=== PATIENT | male | born 1940 | race Caucasian/White ===

== ENCOUNTER 2017-07-11 01:40 | Observation (INO) | payer OTHER, MEDICARE ==
[~2017-07-11] VITALS: Ht 180.3 cm; Wt 91.6 kg
[~2017-07-11 01:40] MED LIST: ASPIRIN EC81 M1 PO; CENTRUM SILVER1 EAC4 PO; CITALOPRAM HBR20 MG PO; CO Q-10150 MG PO; COLACE100 M1; FENOFIBRATE160 M1 PO; FLOMAX0.4 M1 PO; GAS RELIEF125 MG PO; LISINOPRIL20 M1 PO; LOPRESSOR50 M1 PO; MELATONIN3 M4 PO; PROTONIX20 M1 PO; SYNTHROID25 MCG PO; VITAMIN B-121000 MC3 PO; ZOCOR40 M1 PO
--- NOTE | 2017-07-11 09:53 | Operative Report ---
Operative/Inv Procedure Report Surgery Date: 07/11/17 Name of Procedure: TURP with SPT Pre-Operative Diagnosis: BPH with urinary retention Post-Operative Diagnosis: same Estimated Blood Loss: 50ml to 100ml Surgeon/Acid Blower: Rosalba Davalos MD Anesthesia: laryngeal mask airway Drains: 18fr SPT and 22fr [address] Specimens: prostate chips Complications: none Condition: stable Operative Indication: BPH with urinary retention issues,. failed dual meds Operative/Procedure Note Note: 77-year-old male with a history of BPH with issues of urinary retention and failed dual medical therapy. He has had episodes of urinary retention. He was given the risks benefits and alternatives of worsening retention issues as well as difficulty urinating. The surgical option of transurethral resection of prostate with suprapubic tube was reviewed with the patient and his several times. Also the risk of being unable to urinate even with a TURP was also discussed. All questions were answered. The risks benefits and alternatives of the surgery were given in the office as well as in the holding area with consent. Patient was identified in the holding area and brought to the operating placed on the operating table in supine position. I IV antibiotics were infused after timeout was performed. Patient was shaved and the genitalia and suprapubic region. He was prepped and draped in standard sterile fashion in the dorsal lithotomy position. A cystoscopy was performed and the bladder was globally inspected. He had grade 2 trabeculation with the trigone very close to the bladder neck. The ureteral orifices were easily identified on the right and left side. The prostate was very enlarged with lateral kissing lobes and no median lobe. The bladder was filled and the cystoscope left in the bladder. 1% lidocaine was emptied with epinephrine was infiltrated into the superior pubic region 2 fingerbreadths above the pubic bone. A #11 blade was used to make an incision. The needle was introduced at this level and urine was expressed. The guidewire was placed followed by the dilators. Once it was fully dilated the hopland tip 18 Jordanian Hernández catheter was placed without difficulty. 10 mL was of water was placed into the balloon port. The suprapubic tube was secured with two 0 silk sutures. Attention was then turned to the TURP portion of the case. A resectoscope with the loop was placed without difficulty. The resection was started at the 3 o' clock position and carried out sequentially to 6:00 and then 12:00. This was done to from the bladder neck to the verumontanum taking care not to injure the ureteral orifices or go beyond the verumontanum. This was done the patient's left side first followed by the right side and point coagulation was performed as bleeders were encountered. Prostate chips were irrigated intermittently with the EarlySenseik evacuator. Patient was stable throughout the course of the surgery. The rollerball was then used to fulgurate the prostate tissue. The prostatic channel was nice and open from the bladder neck to the verumontanum. No remaining prostatic chips were seen in the bladder. The ureteral orifices were easily identified on the right and left side. Resectoscope was removed and a 22 Jordanian three-way was placed without difficulty. 10 mL was placed into the balloon port and the CBI was started. Hernnádez catheter was attached to the bag to gravity. Patient tolerated procedure well. He was transferred to the recovery room stable condition. Findings: enalrged prostate with lateral kissing lobes and no median lobe with grade2 trabeculation nice open channel at the end of the case with bilateral ureteral orifices intact and verumontanum intact. Discharge Disposition: PACU
[2017-07-11 17:30] VITALS: BP 126/86
[2017-07-11 22:39] VITALS: BP 138/60
[2017-07-12 04:00] VITALS: BP 136/62
[2017-07-12 06:23] VITALS: BP 160/84
[2017-07-12 08:00] VITALS: BP 148/84
--- NOTE | 2017-07-12 08:32 | PN- Urology ---
Subjective Subjective: Comfortable Objective Vital Signs and I&Os Vital Signs Date Time Temp Pulse Resp B/P B/P Pulse O2 O2 Flow FiO2 Mean Ox Delivery Rate 07/12 08 97.7 58 20 160/84 07/12 0820 97.7 58 20 160/84 07/12 0820 97.7 58 20 160/84 07/12 0623 97.7 58 20 160/84 93 Room Air 07/12 0400 98.7 60 20 136/62 94 Room Air 07/11 2239 98.6 59 20 138/60 94 07/11 1730 98.3 58 18 126/86 95 Room Air Intake & Output 07/12 1600 07/12 0800 07/12 0000 07/11 1600 07/11 0800 07/11 0000 Intake Total 480 3230 Output Total 2550 3350 Balance -2070 -120 Intake, Oral 480 480 Intake, Other 2750 Number 0 Bowel Movements Output, Urine 2550 3350 Patient 202 lb Weight Abd: soft and non tender. Suprapubic tube in place. CBI running. Drainage is light pink Genitalia: 3-way evans in place. CBI running and drainage is light pink\ Extrems: No calf tenderness Laboratory Tests 07/12 0700 Chemistry Sodium Pending Potassium Pending Chloride Pending Carbon Dioxide Pending Anion Gap Pending BUN Pending Creatinine Pending BUN/Creatinine Ratio Pending Hematology CBC w Diff Pending WBC Pending RBC Pending Hgb Pending Hct Pending MCV Pending MCH Pending MCHC Pending RDW Pending Plt Count Pending MPV Pending Assessment/Plan Assessment/Plan Imp: 1. Stable POD #1 s/p insertion of suprapubic tube and TURP Plan: 1. D/C CBI, Restart prn hematuria 2. Leave suprapubic tube and evans to gravity drainage 3. If urine is reasonably clear in AM will likely d/c evans and send home with suprapubic tube to gravity drainage Core Measures Venous Thromboembolism VTE Risk Factors Surgery No Mechanical VTE Prophylaxis d/t Other (pt with venodynes) No VTE Pharm Prophylaxis d/t Other (patient is on sq heparin and v) Attending MD Review Statement Attending Statement Attending MD Statement: examined this patient Attending Assessment/Plan: as above
[2017-07-12 09:21] LABS: ABSOLUTE BASOPHIL COUNT 0 /CUMM (0.0-0.2); ABSOLUTE EOSINOPHIL COUNT 0.2 /CUMM (0.0-0.7); ABSOLUTE GRANULOCYTE CT 5.8 /CUMM (1.4-6.5); ABSOLUTE LYMPH COUNT 1.7 /CUMM (1.2-3.4); ABSOLUTE MONOCYTE COUNT 0.6 /CUMM (0.10-0.60); BASOPHIL % 0.3 % (0.0-2.0); EOSINOPHIL % 2.4 % (0-5); GRANULOCYTE % 70.2 % (42.2-75.2); HEMATOCRIT 37.4 % (42-52); MEAN CORPUSCULAR HGB 32.8 PG (27.0-31.0); MEAN CORPUSCULAR HGB CONC 34.5 G/DL (33.0-37.0); MEAN PLATELET VOLUME 7.9 FL (7.4-10.4); PLATELET COUNT 216 /CUMM (130-400); RBC DISTRIBUTION WIDTH 13.3 % (11.5-14.5); RED BLOOD CELL CT 3.94 /CUMM (4.70-6.10); WHITE BLOOD CELL COUNT 8.3 /CUMM (4.8-10.8)
[2017-07-12] MEDS ORDERED: PERCOCET 5-3251 EACH PO (09:47)
--- NOTE | 2017-07-12 09:55 | Patient Discharge Instructions ---
Discharge Instructions General Discharge Information You were seen/treated for: TURP with SPT Pre-Operative Diagnosis: BPH with urinary retention You had these procedures: see above Watch for these problems: inability to urinate, fever, severe pain, flu like illness, bloody drainage from catheter- call your doctor with any of these concerns. No bath, but you may shower: Yes Special Instructions: evans care as discussed by Dr Davalos Diet Continue normal diet: Yes Activity Full Activity/No Limits: No Activity Self Limited: Yes Pounds, do NOT lift more than: 10 Acute Coronary Syndrome Inclusion Criteria At DC or during hospital stay patient has or had the following: ACS DIAGNOSIS No Discharge Core Measures Meds if any: Prescribed or Continued at Discharge Meds if any: NOT Prescribed or Continued at Discharge Congestive Heart Failure Inclusion Criteria At DC or during hospital stay patient has or had the following: CHF DIAGNOSIS No Discharge Core Measures Meds if any: Prescribed or Continued at Discharge Meds if any: NOT Prescribed or Continued at Discharge Cerebrovascular accident Inclusion Criteria At DC or during hospital stay patient has or had the following: CVA/TIA Diagnosis No Discharge Core Measures Meds if any: Prescribed or Continued at Discharge Meds if any: NOT Prescribed or Continued at Discharge Venous thromboembolism Inclusion Criteria VTE Diagnosis No VTE Type NONE VTE Confirmed by (Test) NONE Discharge Core Measures - Per Current guidelines, there needs to be overlap - treatment for the first 5 days of Warfarin therapy. - If discharged on Warfarin prior to 5 days of - overlap therapy, the patient will need to be - assessed for post discharge needs including - *Post discharge parental anticoagulation - *Warfarin and/or parental anticoagulation education - *Follow up date to check INR post discharge At least 5 days overlap therapy as Inpatient No Meds if any: Prescribed or Continued at Discharge Note: Overlap Therapy is Warfarin and Anticoagulant Meds if any: NOT Prescribed or Continued at Discharge
[2017-07-12 10:00] VITALS: BP 150/82
[2017-07-12 12:00] VITALS: BP 154/88
== END 2017-07-12 13:20 ==
LOC: STS 01:40 → PACUH 15:44 → ENRESERV 16:12 → ENTRNSPT 16:58 → EDTRNSPT 17:08 → EDTRNSPTSTS 17:08 → 2NA 17:28 → CMPTRNSPT 17:33 → ENPENDDIS 07-12 10:04 → ENTRNSPT 07-12 12:56 → 2NA 07-12 13:20 → CMPTRNSPT 07-12 13:26
PROVIDERS: Physician Assistant
DX: N40.1 Benign prostatic hyperplasia with lower urinary tract symptoms (principal); R33.8 Other retention of urine; I10 Essential (primary) hypertension; J44.9 Chronic obstructive pulmonary disease, unspecified; E03.9 Hypothyroidism, unspecified; Z79.82 Long term (current) use of aspirin; K21.9 Gastro-esophageal reflux disease without esophagitis; G47.33 Obstructive sleep apnea (adult) (pediatric); K58.9 Irritable bowel syndrome, unspecified; F32.9 Major depressive disorder, single episode, unspecified; E78.5 Hyperlipidemia, unspecified; F98.8 Other specified behavioral and emotional disorders with onset usually occurring in childhood and adolescence; K57.90 Diverticulosis of intestine, part unspecified, without perforation or abscess without bleeding
CPT/HCPCS: 6030; 36592; 82436; 96372; G0378; J0744; J1100; J1644; J2250; J2405

== ENCOUNTER 2017-08-02 21:43 | Inpatient (IN) | payer OTHER, MEDICARE ==
[~2017-08-02] VITALS: Ht 180.3 cm; Wt 91.7 kg
[~2017-08-02 21:43] MED LIST changes: +PERCOCET 5-3251 EACH PO
--- NOTE | 2017-08-02 23:32 | CT SCAN REPORT ---
EXAMINATION: CT HEAD WITHOUT CONTRAST CLINICAL INFORMATION: Intracranial hemorrhage COMPARISON: None TECHNIQUE: Contiguous axial imaging was performed from the skull base to vertex without intravenous administration of contrast. DLP: 621 mGy-cm FINDINGS: There is no evidence of acute intracranial hemorrhage or territorial infarction. No abnormal mass effect or midline shift is seen. Block to white matter differentiation is well preserved. No extra-axial fluid collections are identified. The ventricles are normal in size. Mild age-appropriate chronic microvascular white matter ischemic changes are seen. The osseous structures and soft tissues are normal. The mastoid air cells and visualized portions of the paranasal sinuses are well aerated. IMPRESSION: No acute intracranial pathology.
--- NOTE | 2017-08-02 23:33 | ED GENERAL ADULT ---
History of Present Illness General Chief Complaint: Male Genitourinary Problems Stated Complaint: SIB DR CARY FOR ?UTI/BLADDER INFECTION Source: patient, family Exam Limitations: no limitations Vital Signs & Intake/Output Vital Signs & Intake/Output Vital Signs Date Time Temp Pulse Resp B/P B/P Pulse O2 O2 Flow FiO2 Mean Ox Delivery Rate 08/03 0147 96.6 56 18 129/60 97 Room Air 08/02 2149 96.6 63 18 133/82 95 Room Air Allergies Coded Allergies: Penicillins (UNKNOWN 07/10/17) venom-honey bee (UNKNOWN 07/10/17) Reconcile Medications Aspirin (Ecotrin*) 81 MG TABLET.DR 1 TAB PO DAILY HEART/BLOOD (Reported) Citalopram Hydrobromide (Citalopram HBr) 20 MG TABLET 1 TAB PO DAILY MENTAL HEALTH (Reported) Cyanocobalamin (Vitamin B-12) (Unknown Strength) TABLET (Unknown Dose) PO DAILY SUPPLEMENT (Reported) Docusate Sodium (Colace) 100 MG CAPSULE CONSTIPATION (Reported) Fenofibrate 160 MG TABLET 0.5 TAB PO DAILY CHOLESTEROL (Reported) Levothyroxine Sodium (Synthroid) 25 MCG TABLET 1 TAB PO DAILY AC THYROID ( Reported) Lisinopril 20 MG TABLET 1 TAB PO DAILY BP (Reported) Melatonin 3 MG TABLET 1 TAB PO QPM SLEEP (Reported) Metoprolol Tartrate (Lopressor) 50 MG TABLET 1 TAB PO DAILY HEART/BP ( Reported) Multivit-Min/FA/Lycopen/Lutein (Centrum Silver Men Tablet) 300 MCG-600 MCG-300 MCG TABLET 1 TAB PO DAILY SUPPLEMENT (Reported) Oxycodone HCl/Acetaminophen (Percocet 5-325 MG Tablet) 5 MG-325 MG TABLET 1-2 TAB PO Q4P PRN PAIN Pantoprazole Sodium (Protonix) 20 MG TABLET. 1 TAB PO DAILY ACID REFLUX ( Reported) Simethicone (Gas Relief) 125 MG CAPSULE 1 CAP PO EOD GAS (Reported) Simvastatin (Zocor*) 40 MG TABLET 1 TAB PO DAILY CHOLESTEROL (Reported) Tamsulosin HCl (Flomax) 0.4 MG CAP.ER.24H 1 CAP PO DAILY PROSTATE (Reported) Ubidecarenone (Co Q-10) (Unknown Strength) CAPSULE (Unknown Dose) PO DAILY SUPPLEMENT (Reported) Triage Note: PT TO TRIAGE SENT BY FOR ?INFECTION S/P TURP IN JUNE. PER PT WAS DX WITH UTI YESTERDAY AND STARTED ON CIPRO BUT IS C/O CONFUSION PER AND BURNING ON URINATION. Triage Nurses Notes Reviewed? yes HPI: 77 yo M PMH HTN, HLD, Hypothyroidism, BPH (s/p TURP) presenting with confusion, urinary Sx. Patients states that since his TURP 2 weeks ago he has been intermittently confused, waxing and waning severity, much worse this evening, came upstairs to find the patient frantically looking for his suprapubic catheter tube on the floor and in the garbage (only to find it still attached to his stomach), tonight at dinner he was speaking to a potted plant seated on the dinner table ("and where is your plate?"). Waxing an waning urinary Sx since surgery with dysuria, increase urinary frequency, recently evaluated by Urologist 2 days ago, found to have UTI, started on ciprofloxacin without relief. Denies fevers, chills, chest pain, SOB, palpitations, abominal pain, flank pain, headache, neck pain or focal neurologic Sx. ([place] VALERIO,Lon) Past History Travel History Traveled to [place] past 21 day No Medical History Any Pertinent Medical History? 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 Yes (Lon Magana MD) Review of Systems Review of Systems Constitutional: Reports: see HPI. EENTM: Reports: no symptoms. Respiratory: Reports: no symptoms. Cardiovascular: Reports: no symptoms. GI: Reports: no symptoms. Genitourinary: Reports: see HPI. Musculoskeletal: Reports: no symptoms. Skin: Reports: no symptoms. Neurological/Psychological: Reports: see HPI. Hematologic/Endocrine: Reports: no symptoms. Immunologic/Allergic: Reports: no symptoms. All Other Systems: Reviewed and Negative (Lon Magana MD) Physical Exam Physical Exam General Appearance: well developed/nourished, no apparent distress, alert Head: atraumatic Eyes: Bilateral: PERRL, EOMI. Neck: normal inspection, full range of motion Respiratory: normal breath sounds, lungs clear Cardiovascular: regular rate/rhythm, normal peripheral pulses Gastrointestinal: soft, non-tender Extremities: normal inspection Neurologic/Psych: awake, alert Comments: General: Oriented to person and place, intermittent confused response to questioning Abdomen: Suprapubic catheter in place with mild erythema consistent with healing Core Measures ACS in differential dx? Yes CVA/TIA Diagnosis: No Sepsis Present: No Sepsis Focused Exam Completed? No (Lon Magana MD) Progress Differential Diagnoses I considered the following diagnoses in my evaluation of the patient: [ Infection, metabolic derrangement, ICH] Plan of Care: Orders Procedure Date/time Status Regular Diet 08/03 B Active Vital Signs 08/03 333 Active Teach/Educate 08/03 333 Active Pain Treatment and Response 08/03 033 Active Nutritional Intake, Monitor 08/03 0334 Active Isolation 08/03 0334 Active Intake & Output 08/03 0334 Active Patient Care Conference 08/03 0334 Active Activity/Ambulation 08/03 0334 Active Pathway - chart 08/03 0321 Active House Staff 08/03 0321 Active Patient Data 08/03 0321 Active Code Status 08/03 0321 Active Patient Data 08/03 0212 Active Intake & Output 08/[address] in observation 08/03 0107 Active Misc Message 08/03 0107 Active ED Holding Orders 08/03 0107 Active Code Status 08/03 0107 Complete VTE Mechanical Prophylaxis 08/03 UNK Active CBC WITHOUT DIFFERENTIAL 08/02 2253 Complete BASIC METABOLIC PANEL 08/02 225 Complete EKG 08/02 225 Active CULTURE,URINE 08/02 2145 Active URINALYSIS 08/02 2145 Complete Current Medications Sig/Shaista Start time Last Medication Dose Stop Time Status Admin Heparin Sodium 5,000 UNIT Q8 08/03 0600 AC (Porcine) Acetaminophen 325 MG Q6 PRN 08/03 0330 AC (Tylenol) Laboratory Tests 08/02/17 2315: Anion Gap 12, Estimated GFR 49 L, BUN/Creatinine Ratio 32.1 H, Glucose 99, Calcium 9.5, CBC w Diff NO MAN DIFF REQ, RBC 3.50 L, MCV 93.2, MCH 31.3 H, MCHC 33.5, RDW 13.1, MPV 6.6 L, Gran % 64.6, Lymphocytes % 21.6, Monocytes % 9.0, Eosinophils % 4.3, Basophils % 0.5, Absolute Granulocytes 4.9, Absolute Lymphocytes 1.6, Absolute Monocytes 0.7 H, Absolute Eosinophils 0.3, Absolute Basophils 0 08/02/172153: Urine Color GREEN H, Urine Clarity HAZY H, Urine pH 6.5, Ur Specific [place] > = 1.030, Urine Protein 100 H, Urine Ketones NEG, Urine Nitrite NEG, Urine Bilirubin NEG@ICTO, Urine Urobilinogen 0.2, Ur Leukocyte Esterase MOD H, Ur Microscopic SEDIMENT EXAMINED, Urine RBC 25-50 H, Urine WBC > 75 H, Ur Epithelial Cells RARE, Urine Bacteria MANY H, Urine Hemoglobin MOD H, Urine Glucose NEG Microbiology 08/02 2153 URINE ROUT: Urine Culture - RECD Physician MDM: 77 yo M PMH HTN, HLD, Hypothyroidism, BPH (s/p TURP) presenting with confusion, urinary Sx. VSS, remainder of exam as above. DDx: Metabolic derrangement, Infection, ICH. Labs remarkable for MADDISON (Cr 1.1 > 1.4). 1L NS given. UA suggestive of ongoing infection, will treat with bactrim (anaphylactic penicillin allergy). Admit for ongoing IVF, abx, possible urology consult. Initial ED EKG: none ([place] VALERIO,Lon) Departure Departure Disposition: STILL A PATIENT Condition: Stable Clinical Impression Primary Impression: MADDISON (acute kidney injury) Secondary Impressions: Confusion, UTI (urinary tract infection) Referrals: Genie Lujan MD (PCP/Family) Departure Forms: Customer Survey General Discharge Information Admission Note Spoke With: Howie Moulton MD Documentation of Exam: Documentation of any treatments & extenuating circumstances including Concerns Regarding Discharge (functional status, medication knowledge or non-compliance, living conditions, etc.) that warrant an admission rather than observation: [ Presents with confusion and a Setting of Ongoing Urinary Tract Infection That Is Being Treated with Outpatient Antibiotics, the Patient Requires Admission for Monitoring, IV Fluids, Antibiotics, and Neurology Consult, If Discharged Patient Has a High Likelihood of Progressive Confusion, Progressive Renal Impairment, and Metabolic derrangements leading to cardiovascular collapse or ] ([place] VALERIO,Lon) PA/INSULATION POWER UNIT TENDER Co-Sign Statement Statement: ED Attending supervision documentation- [] I saw and evaluated the patient. I have also reviewed all the pertinent lab results and diagnostic results. I agree with the findings and the plan of care as documented in the PA's/INSULATION POWER UNIT TENDER's documentation. [x] I have reviewed the ED Record and agree with the PA's/INSULATION POWER UNIT TENDER's documentation. [] Additions or exceptions (if any) to the PAs/INSULATION POWER UNIT TENDER's note and plan are summarized below: [] (Tere VALERIO,Bernardo Cohen) Critical Care Note Critical Care Note Critical Care Time: non-applicable ([place] VALERIO,Lon)
--- NOTE | 2017-08-02 23:38 | RADIOLOGY REPORT ---
EXAMINATION: XR CHEST CLINICAL INFORMATION: Cough. Confusion. COMPARISON: None TECHNIQUE: 2 views of the chest were obtained. FINDINGS: The lungs are well expanded. Minimal linear left basilar atelectasis. There is no focal consolidation, edema, or effusion. No pneumothorax. The cardiomediastinal silhouette is within normal limits. No acute osseous abnormality. Radiopaque anchor in the left humeral head. IMPRESSION: No acute pulmonary finding.
[2017-08-02 23:39] LABS: ABSOLUTE BASOPHIL COUNT 0 /CUMM (0.0-0.2); ABSOLUTE EOSINOPHIL COUNT 0.3 /CUMM (0.0-0.7); ABSOLUTE GRANULOCYTE CT 4.9 /CUMM (1.4-6.5); ABSOLUTE LYMPH COUNT 1.6 /CUMM (1.2-3.4); ABSOLUTE MONOCYTE COUNT 0.7 /CUMM (0.10-0.60); BASOPHIL % 0.5 % (0.0-2.0); EOSINOPHIL % 4.3 % (0-5); GRANULOCYTE % 64.6 % (42.2-75.2); HEMATOCRIT 32.6 % (42-52); MEAN CORPUSCULAR HGB 31.3 PG (27.0-31.0); MEAN CORPUSCULAR HGB CONC 33.5 G/DL (33.0-37.0); MEAN CORPUSCULAR VOLUME 93.2 FL (80.0-94.0); MEAN PLATELET VOLUME 6.6 FL (7.4-10.4); PLATELET COUNT 360 /CUMM (130-400); RBC DISTRIBUTION WIDTH 13.1 % (11.5-14.5); WHITE BLOOD CELL COUNT 7.6 /CUMM (4.8-10.8)
--- NOTE | 2017-08-03 04:17 | History & Physical ---
JerryAnkitaalessandra 08/03/17 0401: General Information and HPI MD Statement: I have seen and personally examined ZEFERINO VAIL and documented this H&P. The patient is a 77 year old M who presented with a patient stated chief complaint of confusion []. Source of Information: patient, old records Exam Limitations: no limitations History of Present Illness: Patient is a 77-year-old male with past medical history of BPH(S/P TURP on 2017), hypertension, hyperlipidemia was sent in to the ED by Dr. Sifuentes for confusion and UTI. Patient had a TURP procedure done on 07/10/2017 and is now s/pt a suprapubic catheter. Post the procedure he has been having waxing and waning confusion which had gotten much worse this evening. As per the ED reports, his reported that the patient has been delirious and delusional and has been quite confused at home. He was family report is Hernández on the floor and talking to himself/op checks during dinner. He has also been complaining of dysuria and increased frequency of urination for which she was seen by Dr. Sifuentes and started on ciprofloxacin. There hasn't been much improvement in his symptoms. Patient denies any chest pain, palpitations, nausea, vomiting, abdominal pain, urinary or bowel symptoms. He does endorse back pain which is chronic and pain in his penis. He denies any fevers, chills or urinary symptoms. Vitals in the ED temperature 96.6, pulse 63, respiration 18, blood pressure 133/ 82, saturating 95% on room air. Labs significant for H&H 10/32.6(baseline 12), creatinine 1.4(baseline 1.1) UA was dirty with positive leukocyte esterase, positive nitrate and >[address] and chest x-ray nonrevealing Allergies/Medications Allergies: Coded Allergies: Penicillins (UNKNOWN 07/10/17) venom-honey bee (UNKNOWN 07/10/17) Home Med list Aspirin (Ecotrin*) 81 MG TABLET. 1 TAB PO DAILY HEART/BLOOD (Reported) Citalopram Hydrobromide (Citalopram HBr) 20 MG TABLET 1 TAB PO DAILY MENTAL HEALTH (Reported) Cyanocobalamin (Vitamin B-12) (Unknown Strength) TABLET (Unknown Dose) PO DAILY SUPPLEMENT (Reported) Docusate Sodium (Colace) 100 MG CAPSULE CONSTIPATION (Reported) Fenofibrate 160 MG TABLET 0.5 TAB PO DAILY CHOLESTEROL (Reported) Levothyroxine Sodium (Synthroid) 25 MCG TABLET 1 TAB PO DAILY AC THYROID ( Reported) Lisinopril 20 MG TABLET 1 TAB PO DAILY BP (Reported) Melatonin 3 MG TABLET 1 TAB PO QPM SLEEP (Reported) Metoprolol Tartrate (Lopressor) 50 MG TABLET 1 TAB PO DAILY HEART/BP ( Reported) Multivit-Min/FA/Lycopen/Lutein (Centrum Silver Men Tablet) 300 MCG-600 MCG-300 MCG TABLET 1 TAB PO DAILY SUPPLEMENT (Reported) Oxycodone HCl/Acetaminophen (Percocet 5-325 MG Tablet) 5 MG-325 MG TABLET 1-2 TAB PO Q4P PRN PAIN Pantoprazole Sodium (Protonix) 20 MG TABLET.DR 1 TAB PO DAILY ACID REFLUX ( Reported) Simethicone (Gas Relief) 125 MG CAPSULE 1 CAP PO EOD GAS (Reported) Simvastatin (Zocor*) 40 MG TABLET 1 TAB PO DAILY CHOLESTEROL (Reported) Tamsulosin HCl (Flomax) 0.4 MG CAP.ER.24H 1 CAP PO DAILY PROSTATE (Reported) Ubidecarenone (Co Q-10) (Unknown Strength) CAPSULE (Unknown Dose) PO DAILY SUPPLEMENT (Reported) Past History Travel History Traveled to [place] past 21 day No Medical History Blood Transfusion Hx: No Neurological: NONE EENT: NONE Cardiovascular: hypertension Respiratory: COPD Gastrointestinal: constipation Hepatic: NONE Renal: NONE Musculoskeletal: BATSHEVA ROTATOR CUFF REPAIR Psychiatric: anxiety, depression Endocrine: hypothyroidism Blood Disorders: NONE Cancer(s): NONE 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 EENTM: Reports: no symptoms. Cardiovascular: Reports: no symptoms. Respiratory: Reports: no symptoms. GI: Reports: no symptoms. Musculoskeletal: Reports: back pain. Exam & Diagnostic Data Last 24 Hrs of Vital Signs/I&O Vital Signs Date Time Temp Pulse Resp B/P B/P Pulse O2 O2 Flow FiO2 Mean Ox Delivery Rate 08/03 0147 96.6 56 18 129/60 97 Room Air 08/02 2149 96.6 63 18 133/82 95 Room Air Intake & Output 08/03 0800 08/03 0000 08/02 1600 Intake Total Output Total Balance Patient 91.682 kg Weight Physical Exam General Appearance Alert, Oriented X3, Cooperative, No Acute Distress Skin No Rashes, redness seen around the scrotum Skin Temp/Moisture Exam: Warm/Dry Sepsis Skin Exam (color): Normal for Ethnicity HEENT Atraumatic, PERRLA, EOMI, mucous membranes dry. Neck Supple, No JVD Lymphatic Cervical nl Cardiovascular Regular Rate, Normal S1, Normal S2, No Murmurs Lungs Clear to Auscultation, Normal Air Movement Abdomen Normal Bowel Sounds, Soft, No Tenderness Extremities No Clubbing, No Cyanosis Last 24 Hrs of Labs/Luis Alberto: Laboratory Tests 08/02/17 2315: Anion Gap 12, Estimated GFR 49 L, BUN/Creatinine Ratio 32.1 H, Glucose 99, Calcium 9.5, CBC w Diff NO MAN DIFF REQ, RBC 3.50 L, MCV 93.2, MCH 31.3 H, MCHC 33.5, RDW 13.1, MPV 6.6 L, Gran % 64.6, Lymphocytes % 21.6, Monocytes % 9.0, Eosinophils % 4.3, Basophils % 0.5, Absolute Granulocytes 4.9, Absolute Lymphocytes 1.6, Absolute Monocytes 0.7 H, Absolute Eosinophils 0.3, Absolute Basophils 0 08/02/172153: Urine Color GREEN H, Urine Clarity HAZY H, Urine pH 6.5, Ur Specific [place] > = 1.030, Urine Protein 100 H, Urine Ketones NEG, Urine Nitrite NEG, Urine Bilirubin NEG@ICTO, Urine Urobilinogen 0.2, Ur Leukocyte Esterase MOD H, Ur Microscopic SEDIMENT EXAMINED, Urine RBC 25-50 H, Urine WBC > 75 H, Ur Epithelial Cells RARE, Urine Bacteria MANY H, Urine Hemoglobin MOD H, Urine Glucose NEG Microbiology 08/02 2153 URINE ROUT: Urine Culture - RECD Assessment/Plan Assessment: Patient is a 77-year-old male with past medical history of BPH(S/P TURP on 2017), hypertension, hyperlipidemia was sent in to the ED by Dr. Sifuentes for confusion and UTI.Patient had a TURP procedure done on 07/10/2017 and is now s/pt a suprapubic catheter. Post the procedure he has been having waxing and waning confusion which had gotten much worse this evening. Vitals in the ED temperature 96.6, pulse 63, respiration 18, blood pressure 133/ 82, saturating 95% on room air. Labs significant for H&H 10/32.6(baseline 12), creatinine 1.4(baseline 1.1) UA was dirty with positive leukocyte esterase, positive nitrate and >[address] and chest x-ray nonrevealing Assessment Confusion, delirium likely secondary to UTI s/p TURP Suprapubic catheter associated UTI Recent TURP MADDISON likely secondary to dehydration Hypertension Hyperlipidemia Plan Admit to [facility] Vitals per protocol Gentle hydration with IV normal saline at 75 cc an hour Blood and urine cultures. Patient has grown Achinetobacter in the past which was sensitive to ciprofloxacin. Received IV ceftriaxone in the ED. We'll start ciprofloxacin and continue pending cultures ID consult appreciated Urology consult in a.m. CT abdomen and pelvis Continue all other home medications DVT prophylaxis subcutaneous heparin DNR Please confirm all home medications in a.m. As Ranked By This Provider Problem List: 1. MADDISON (acute kidney injury) 2. UTI (urinary tract infection) 3. Confusion 4. S/P transurethral resection of prostate Core Measures/Misc (12/15) Acute Coronary Syndrome ACS Diagnosis: No Congestive Heart Failure Congestive Heart Failure Diagnosis No Cerebrovascular Accident CVA/TIA Diagnosis: No VTE (View Protocol) VTE Risk Factors Age>40 No Mechanical VTE Prophylaxis d/t N/A MechProphylax Ordered No VTE Pharm Prophylaxis d/t NA PharmProphylax ordered Sepsis (View protocol) Sepsis Present: No Howie Moulton 08/03/17 0547: Attending MD Review Statement Attending Statement Attending MD Statement: examined this patient, discuss w/resident/PA/CASE FINISHING MACHINE ADJUSTER, agreed w/resident/PA/CASE FINISHING MACHINE ADJUSTER, reviewed EMR data (avail), reviewed images, amended to note Attending Assessment/Plan: CC: Confusion PMH: HTN, HLD, hypothyroidism, COPD, depression Patient is poor historian. His is not available bedside who has more detailed information according to him. Patient states that his thinks that he is more confused, more forgetful. Patient has been getting forgetful recently but last few days he was more confused according to his . Patient also complains of burning sensation in his urine mostly at the tip of urethra and suprapubic pain. He denied any fever, chills, nausea, vomiting, diarrhea, chest pain, abdominal pain. He underwent TURP in June 2017 and had suprapubic catheter placement and he states that it's very uncomfortable for him. Vitals: Temperature 96.6, pulse is 63, RR 18, blood pressure 133/82, saturating 97% on room air. On exam: A O 3, cooperative, no acute distress, neck supple, JVD normal, no lymphadenopathy, mucosa dry, no focal neurological deficit, no dependent edema, no obvious skin rashes or inflammation CVS: S1-S2, RRR. RS: Clear to auscultate bilaterally. Abdomen: Soft, mild suprapubic tenderness, no urethral discharge, ND, bowel sounds present. CXR: No acute pulmonary finding. CT head: No acute intracranial pathology. Assessment and plan 77-year-old male was brought in ER by his for increased confusion and burning sensation in urethra. Patient underwent TURP on 07/11/2017. Suprapubic catheter was placed at that time. According to his claims history patient was started on ciprofloxacin outpatient on july. Patient's symptoms seems to be getting worse even on antibiotics so he was brought in ER. Urine culture done on July 29 shows 40,000 colonies of Acinetobacter. It's unclear if this is colonization or UTI but at this point we will continue to treat this as UTI given his confusion and burning urination. We will get ID involved as higher antibiotics may be required. We will inform urology about patient being in hospital. He also appears to have acute kidney injury with creatinine of 1.4, will continue IV hydration and reassess, if no improvement consider CT abdomen and pelvis without contrast. Patient has significant penicillin allergy with what appears to be anaphylaxis. + Catheter associated UTI + Confusion + Acute kidney injury + Recent TURP with suprapubic catheter placement + History of HTN, HLD, hypothyroidism, COPD, depression - Admit to general medicine - Continue gentle hydration - Hold lisinopril - Repeat urine cultures - Continue by mouth ciprofloxacin 500 twice a day - ID consult - Urology consult - Continue other home medications - Need to obtain more detailed history from in the morning
[2017-08-03 04:20] VITALS: BP 142/88
--- NOTE | 2017-08-03 05:50 | Admission Certification ---
Admission Certification Certification Statement - As attending physician, I certify that at the time of - admission, based on clinical presentation, severity of - symptoms, need for further diagnostic testing and - therapeutic interventions, and risk of adverse outcomes - without in-hospital treatment, in my clinical assessment, - this patient requires an acute hospital stay for a minimum - of two nights or longer. I have also considered psychsocial - factors such as support system, advanced age, financial - issues, cognitive issues, and failed out-patient treatments, - past re-admission history, safety of patient, and lack of - compliance as applicable. Specific rationale supporting this admission is: UTI, acute kidney injury, confusion
[2017-08-03 06:47] VITALS: BP 144/88
[2017-08-03 08:58] LABS: ABSOLUTE BASOPHIL COUNT 0 /CUMM (0.0-0.2); ABSOLUTE EOSINOPHIL COUNT 0.4 /CUMM (0.0-0.7); ABSOLUTE GRANULOCYTE CT 4.5 /CUMM (1.4-6.5); ABSOLUTE LYMPH COUNT 1.3 /CUMM (1.2-3.4); ABSOLUTE MONOCYTE COUNT 0.6 /CUMM (0.10-0.60); BASOPHIL % 0.6 % (0.0-2.0); EOSINOPHIL % 5.9 % (0-5); GRANULOCYTE % 66.5 % (42.2-75.2); HEMATOCRIT 31.5 % (42-52); MEAN CORPUSCULAR HGB 31.4 PG (27.0-31.0); MEAN CORPUSCULAR HGB CONC 33.6 G/DL (33.0-37.0); MEAN CORPUSCULAR VOLUME 93.3 FL (80.0-94.0); MEAN PLATELET VOLUME 7.2 FL (7.4-10.4); PLATELET COUNT 306 /CUMM (130-400); RBC DISTRIBUTION WIDTH 13.1 % (11.5-14.5); RED BLOOD CELL CT 3.38 /CUMM (4.70-6.10); WHITE BLOOD CELL COUNT 6.8 /CUMM (4.8-10.8)
--- NOTE | 2017-08-03 12:03 | CT SCAN REPORT ---
EXAMINATION: CT ABDOMEN AND PELVIS WITHOUT CONTRAST CLINICAL INFORMATION: UTI. Confusion. Rule out acute pathology. COMPARISON: None. TECHNIQUE: Multidetector volumetric imaging was performed from the superior aspect of the liver through the pubic symphysis. Sagittal and coronal reformatted images were obtained on the technologist workstation. DLP: 563.44 mGy-cm. FINDINGS: LUNG BASES: Minimal dependent atelectasis in the lung bases bilaterally. Mitral annular calcifications are seen. LIVER, GALLBLADDER, AND BILIARY TREE: The liver is normal in size, shape, and attenuation. No focal hepatic lesion on noncontrast imaging. No biliary ductal dilatation is present. The gallbladder is unremarkable with no evidence of radiopaque gallstones, gallbladder wall thickening, or obvious pericholecystic inflammatory changes. PANCREAS: Mild fatty infiltration of the pancreatic head is seen. Pancreas otherwise unremarkable on noncontrast imaging. SPLEEN, ADRENAL GLANDS: Unremarkable on noncontrast imaging. KIDNEYS AND URETERS: The kidneys are normal in size, shape, and attenuation. No hydronephrosis, hydroureter, or calculi seen. No perinephric stranding. In the lower pole of the left kidney, there is an exophytic 2.0 x 2.1 cm mass with mean attenuation values of 30 Hounsfield units. This is incompletely assessed on this noncontrast enhanced exam and may represent a hyperdense cyst versus a solid renal mass. Further evaluation will be needed. Kidneys are otherwise unremarkable. BLADDER: The bladder is decompressed by a suprapubic catheter. Small locule of air within the bladder lumen is seen. Evaluation of the bladder is therefore limited. There there is mild stranding and edema in the perivesical fat, consistent with cystitis in this patient with history of UTI. No bladder calculi seen. PELVIC VISCERA: Prostate gland is enlarged and heterogeneous, measuring 7.0 x 5.6 x 6.2 cm (127 mL volume). Seminal vesicles bilaterally are symmetric and unremarkable. GASTROINTESTINAL TRACT: Small retrocardiac hiatal hernia is seen. The small and large bowel are unremarkable. The appendix is not visualized. ABDOMINAL WALL: No significant hernia is appreciated. Suprapubic bladder catheter is in place. LYMPH NODES, VASCULAR: Moderate atherosclerotic calcifications of the aortoiliac arteries noted. No significant abdominal or pelvic adenopathy or free fluid collection. OSSEOUS STRUCTURES: There is a convex left lumbar scoliosis with multilevel severe degenerative changes in the lumbar spine, most prominent at the L1-L2, L2-L3, L3-L4 levels with marked disc space narrowing, vertebral endplate sclerosis and spurring, cystic changes and vacuum disc phenomenon. Posterior disc osteophyte complexes are seen at multiple levels. IMPRESSION: 1. Bladder suboptimally assessed due to decompression. There is pericystic edema and stranding seen, consistent with cystitis in the setting of UTI. 2. No evidence of nephrolithiasis or obstructive uropathy. 3. Incompletely characterized exophytic approximately 2 cm mass is seen in the lower pole of the left kidney, possibly a hyperdense cyst versus a solid mass. Further evaluation with renal MRI scan is recommended. 4. Moderate atherosclerotic arterial calcifications in the abdomen. 5. Markedly enlarged and heterogeneous prostate gland. 6. Small hiatal hernia.
--- NOTE | 2017-08-03 13:31 | PN- Att Addend ---
Attending Addendum Attending Brief Note Patient seen/examined bedside. states patient has REM sleep disorder and presents to ER wit increasing confusion and vivid dreams. Seen by neurology Dr Torres in past , also noticed to have abnormal twitches and hand movements. He has also been complaining of dysuria and increased frequency of urination for which she was seen by Dr. Sifuentes and started on ciprofloxacin. There hasn't been much improvement in his symptoms. labs and imaging noted. Vitals stable. PE unremarakble except SPC + no signs of infection at site. Cont plan of care as per admitting physician, please ask neurology to follow up. Admission Lab Results I reviewed the following labs: Laboratory Tests 08/03 08/02 0730 2315 Chemistry Sodium (137 - 145 mmol/L) 143 143 Potassium (3.5 - 5.1 mmol/L) 4.4 4.5 Chloride (98 - 107 mmol/L) 109 H 107 Carbon Dioxide (22 - 30 mmol/L) 23 24 Anion Gap (5 - 16) 11 12 BUN (9 - 20 mg/dL) 41 H 45 H Creatinine (0.7 - 1.2 mg/dL) 1.3 H 1.4 H Estimated GFR (>60 ml/min) 54 L 49 L BUN/Creatinine Ratio (7 - 25 %) 31.5 H 32.1 H Glucose (65 - 99 mg/dL) 99 Calcium (8.4 - 10.2 mg/dL) 9.5 Hematology CBC w Diff NO MAN DIFF REQ NO MAN DIFF REQ WBC (4.8 - 10.8 /CUMM) 6.8 7.6 RBC (4.70 - 6.10 /CUMM) 3.38 L 3.50 L Hgb (14.0 - 18.0 G/DL) 10.6 L 10.9 L Hct (42 - 52 %) 31.5 L 32.6 L MCV (80.0 - 94.0 FL) 93.3 93.2 MCH (27.0 - 31.0 PG) 31.4 H 31.3 H MCHC (33.0 - 37.0 G/DL) 33.6 33.5 RDW (11.5 - 14.5 %) 13.1 13.1 Plt Count (130 - 400 /CUMM) 306 360 MPV (7.4 - 10.4 FL) 7.2 L 6.6 L Gran % (42.2 - 75.2 %) 66.5 64.6 Lymphocytes % (20.5 - 51.1 %) 18.6 L 21.6 Monocytes % (1.7 - 9.3 %) 8.4 9.0 Eosinophils % (0 - 5 %) 5.9 H 4.3 Basophils % (0.0 - 2.0 %) 0.6 0.5 Absolute Granulocytes (1.4 - 6.5 /CUMM) 4.5 4.9 Absolute Lymphocytes (1.2 - 3.4 /CUMM) 1.3 1.6 Absolute Monocytes (0.10 - 0.60 /CUMM) 0.6 0.7 H Absolute Eosinophils (0.0 - 0.7 /CUMM) 0.4 0.3 Absolute Basophils (0.0 - 0.2 /CUMM) 0 0 05/05 2154 Urines Urine Color (YEL,AMB,STR) GREEN H Urine Clarity (CLEAR) HAZY H Urine pH (5.0 - 8.0) 6.5 Ur Specific [place] (1.001 - 1.035) >= 1.030 Urine Protein (NEG,<30 MG/DL) 100 H Urine Ketones (NEG) NEG Urine Nitrite (NEG) NEG Urine Bilirubin (NEG) NEG@ICTO Urine Urobilinogen (0.1 - 1.0 EU/dl) 0.2 Ur Leukocyte Esterase (NEG) MOD H Ur Microscopic SEDIMENT EXAMINED Urine RBC (0 - 5 /HPF) 25-50 H Urine WBC (0 - 2 /HPF) > 75 H Ur Epithelial Cells (NONE,FEW) RARE Urine Bacteria (NEG/NONE) MANY H Urine Hemoglobin (NEG) MOD H Urine Glucose (N MG/DL) NEG Admission Meds I reviewed the following Meds: Current Medications Sig/Shaista Start time Last Medication Dose Stop Time Status Admin Acetaminophen 325 MG Q6 PRN 08/03 0330 AC (Tylenol) Aspirin Buffered 81 MG DAILY 08/03 899 AC 08/03 (Ecotrin) 0826 Atorvastatin Calcium 20 MG 1700 08/03 1700 AC (Lipitor) Ciprofloxacin 500 MG BID 08/03 899 AC 08/03 (Cipro) 08/07 0859 0826 Citalopram 20 MG DAILY 08/03 899 AC 08/03 Hydrobromide 0826 (Celexa) Fenofibrate 48 MG DAILY 08/03 0900 AC 08/03 (Tricor) 0826 Heparin Sodium 5,000 UNIT Q8 08/03 0600 AC 08/03 (Porcine) 0500 Lactobacillus 1 CAP DAILY 08/03 1010 AC Acidophilus (Probiotic) Levothyroxine Sodium 0.025 MG DAILY AC 08/03 0700 AC 08/03 (Synthroid) 0635 Melatonin 3 MG QPM 08/03 2100 AC (Melatonin) Metoprolol Tartrate 50 MG DAILY 08/03 0900 AC 08/03 (Lopressor) 0825 Omeprazole 20 MG DAILY AC 08/03 0700 AC 08/03 (Prilosec) 0635 Oxycodone/ 1 TAB Q4P PRN 08/03 0430 AC Acetaminophen (Percocet) Sodium Chloride 1,000 ML Q13H 08/03 0430 AC 08/03 (Normal Saline 0.9%) 0459 Tamsulosin HCl 0.4 MG DAILY 08/03 0900 AC 08/03 (Flomax) 0826
[2017-08-03 15:18] VITALS: BP 154/88
[2017-08-03 22:21] VITALS: BP 150/80
[2017-08-04 06:02] VITALS: BP 154/80
--- NOTE | 2017-08-04 07:57 | PN- Housestaff ---
Beni VALERIO,[place]vel 08/04/17 0757: Subjective Follow-up For: Acute delirium, UTI Complaints: confusion Subjective: Patient followed up by me today. He appears to be confused, in restraints, is disoriented, but is cooperative. At times, he tries to get off the bed, and does NOT understand why he is admitted. He recognizes his girlfriend Edel who is in the same room near him. Overnight, no fever/chills, but his BP has been elevated. No nursing issues other than requiring b/l soft upper extremities restraints noted. Review of Systems Constitutional: Reports: see HPI. Objective Last 24 Hrs of Vital Signs/I&O Vital Signs Date Time Temp Pulse Resp B/P B/P Pulse O2 O2 Flow FiO2 Mean Ox Delivery Rate 08/04 1501 97.8 62 20 160/82 95 Room Air 08/04 0852 99.3 75 18 154/80 08/04 0852 99.3 75 18 154/80 05/ 0602 99.3 75 18 154/80 92 Room Air 08/03 2221 98.8 69 19 150/80 95 Room Air Intake & Output 08/04 1600 08/04 0800 05 0000 Intake Total 1100 900 200 Output Total 1000 Balance 1100 -100 200 Intake, IV 700 600 Intake, Oral 400 300 200 Output, Urine 1000 Physical Exam General Appearance: Alert, Oriented X3, Cooperative, No Acute Distress, overweight Other Physical Findings: Skin Temp/Moisture Exam: Warm/Dry HEENT Atraumatic, PERRLA, EOMI, moist mucous membranes Neck Supple, No JVD Lymphatic Cervical nl Cardiovascular Regular Rate, Normal S1, Normal S2, No Murmurs Lungs Clear to Auscultation, Normal Air Movement Abdomen Normal Bowel Sounds, Soft, No Tenderness, suprapubic cath in situ/no redness around it Extremities No Clubbing, No Cyanosis Neurology Patient is disoriented, speech is not coherent, gets slightly agitated at times, but tried to hold conversation; unable to carry out full assessment Current Medications: Current Medications Sig/Shaista Start time Last Medication Dose Route Stop Time Status Admin Acetaminophen 325 MG Q6 PRN 08/03 0330 AC PO Aspirin Buffered 81 MG DAILY 08/03 0900 AC 08/04 PO 0852 Atorvastatin Calcium 20 MG 1700 08/03 1700 AC 08/04 PO 1731 Ceftriaxone Sodium 1,000 MG DAILY 08/05 899 CAN IV Ciprofloxacin 500 MG BID 08/03 899 DC 08/04 PO 05 0859 0852 Citalopram 20 MG DAILY 08/03 899 AC 08/04 Hydrobromide PO 0852 Fenofibrate 48 MG DAILY 08/03 899 AC 08/04 PO 0852 Heparin Sodium 5,000 UNIT Q8 08/03 599 AC 08/04 (Porcine) SC 1346 Lactobacillus 1 CAP BID 08/04 2100 AC Acidophilus PO Lactobacillus 1 CAP DAILY 08/03 1010 DC 08/04 Acidophilus PO 0852 Levothyroxine Sodium 0.025 MG DAILY AC 08/03 699 AC 08/04 PO 0535 Melatonin 3 MG QPM 08/03 2100 AC 08/03 PO 2113 Metoprolol Tartrate 50 MG DAILY 08/03 899 AC 08/04 PO 0852 Mirabegron 50 MG DAILY 08/03 1500 DC 08/04 PO 0852 Omeprazole 20 MG DAILY AC 08/03 699 AC 08/04 PO 0535 Oxycodone/ 1 TAB Q4P PRN 08/03 0430 DC 08/03 Acetaminophen PO 2243 Quetiapine Fumarate 12.5 MG ONCE PRN 08/04 1900 AC PO Sodium Chloride 1,000 ML Q13H 08/03 0430 AC 08/04 IV 0852 Tamsulosin HCl 0.4 MG DAILY 08/03 899 AC 08/04 PO 0852 Trimethoprim/ 1 TAB BID 08/04 2100 AC Sulfamethoxazole PO Assessment/Plan Assessment: 77 yo M with pmh of HTN, HLD, hypothyroidism, COPD, depression is here for worsening confusion that initially started after "few (?2-3)" days after his recent TURP procedure. 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 His previous U cx was negative on 07/18/17. His urine culture at that time showed Acinetobacter lwoffii (40,000 CFU) sensitive to Ciprofloxacin, Ampi/Sulbactam, Genta, Bactrim. UA has pyuria >75, mod LE among others, U Cx from 08/02/17 so growth so far. * Patient has UTI but could have confusion due to Ciprofloxacin as well, althought this is not the most comon side effect of Cipro. * DC'ed Cipro * Initially thinking of Ceftriaxone although he is allergic to PCN, but later changed to Bactrim per ID recs. pt did NOT receive Ceftriaxone. * Pending final culture of U Cx. # Acute delirium Patient has worsening delirium, which could be multifactorial, including anticholinergic medication he is getting for urinary symptoms, ciprofloxacin for UTI, dehydration, sundowning. Of note, his girlfriend tells us that all this is new to him. * UTI is being treated with abx * Possible offending meds discontinued, e.g. Mirabegron, Ciprofloxacin * Frequent reorientation * Soft restraints in upper ext b/l * Patient safety monitor ordered * Can give low dose antipsychotics if necessary for agitation/hallucination/ delirium * Neurology recs appreciated * Psych consulted, awaiting recs #MADDISON Baseline to compare: Creatinine increased from 1.1 to 1.4, which is an increase of 0.4 mg/dL defining MADDISON. Likely from dehydration. Continue Will keep off nephrotoxic drugs. Catheter not clogged/blocked. IV fluids to continue @75ml/hr. # Recent Urologic surgery I spoke to Dr Sifuentes who mentioned Dr Casillas will himself or one of his group members (Urologists) would follow up on the patient today. SPC does not seem to have surrounding signs of cellulitis. Patient has a renal mass on Left side, that needs follow up by Urology, might not be immediate priority. Diet: Regular diet DVT ppx: SQ Heparin Code status: DNR/DNI Problem List: 1. UTI (urinary tract infection) 2. MADDISON (acute kidney injury) 3. Confusion 4. S/P transurethral resection of prostate Pain Ratin Pain Location: - Pain Goal: Pain 4 or less Pain Plan: prn Tomorrow's Labs & Rationales: BEP, Booker Jonas MD 08/04/17 2010: Attending MD Review Statement Attending Statement Attending MD Statement: examined this patient, discuss w/resident/PA/RESIDENTIAL MONITOR, agreed w/resident/PA/RESIDENTIAL MONITOR, discussed with family, reviewed EMR data (avail), discussed with nursing, discussed with case mgmt, amended to note Attending Assessment/Plan: The patient was seen and discussed with house staff, girlfriend, nursing, and case management. Neurology, ID, and Psych input appreciated. The patient has acute delirium that is probably multifactorial - surgery, anesthesia, narcotic, anti-cholinergic med, and ? Cipro. Agree with change of Abx to Bactrim and d/c anti-cholinergic med. Will try low dose Seroquel tonight and observe. No Ativan.
--- NOTE | 2017-08-04 11:57 | Cons- Infect Disease ---
General Information and HPI Consulting Request Date of Consult: 08/04/17 Requested By: Booker Wen MD Reason for Consult: Rule out urinary tract infection Source of Information: patient, old records, friend Exam Limitations: confusion History of Present Illness: This is a 77-year-old man with a history of hypertension, COPD, hypothyroidism, anxiety, depression and BPH, status post a TURP, with placement of a suprapubic catheter, 3 weeks prior to admission, with Ciprofloxacin prophylaxis, discharged with a Hernández catheter, on Myrbetriq, with removal of the Hernández on his first postop visit, at which time he was confused and complained of burning on urination, with improvement in his confusion but with persistent dysuria, seen in follow-up 4 days prior to admission, at which time he was found to have a positive urine culture with 40,000 colonies of Acinetobacter, begun on Ciprofloxacin 2 days prior to admission, admitted on August 02 after he was brought to the emergency room with several episodes of confusion and hallucinations, beginning after the Ciprofloxacin was begun, with no improvement in his dysuria but with no fevers, chills or other systemic symptoms. On admission he was afebrile. Laboratory data revealed a white blood cell count of 8000, with 4.3% eosinophils, BUN/creatinine 45 and 1.4. Urinalysis 25-50 RBC/>75 WBCs. Chest x -ray was negative. CT of the head was negative. CT of the abdomen and pelvis revealed mild stranding and edema in the perivesical fat of the bladder, with no nephrolithiasis or obstructive uropathy, a 2 cm mass in the lower pole of the left kidney and a markedly enlarged and heterogeneous prostate gland. He was given a dose of Bactrim and then begun on Ciprofloxacin, which was apparently discontinued today, with Ceftriaxone ordered beginning tomorrow. He has remained afebrile since admission but has continued to be confused and is unable to provide any history. Allergies/Medications Allergies: Coded Allergies: Penicillins (UNKNOWN 07/10/17) venom-honey bee (UNKNOWN 07/10/17) Home Med List: Aspirin (Ecotrin*) 81 MG TABLET.DR 1 TAB PO DAILY HEART/BLOOD (Reported) Citalopram Hydrobromide (Citalopram HBr) 20 MG TABLET 1 TAB PO DAILY MENTAL HEALTH (Reported) Cyanocobalamin (Vitamin B-12) (Unknown Strength) TABLET (Unknown Dose) PO DAILY SUPPLEMENT (Reported) Docusate Sodium (Colace) 100 MG CAPSULE CONSTIPATION (Reported) Fenofibrate 160 MG TABLET 0.5 TAB PO DAILY CHOLESTEROL (Reported) Levothyroxine Sodium (Synthroid) 25 MCG TABLET 1 TAB PO DAILY AC THYROID ( Reported) Lisinopril 20 MG TABLET 1 TAB PO DAILY BP (Reported) Melatonin 3 MG TABLET 1 TAB PO QPM SLEEP (Reported) Metoprolol Tartrate (Lopressor) 50 MG TABLET 1 TAB PO DAILY HEART/BP ( Reported) Multivit-Min/FA/Lycopen/Lutein (Centrum Silver Men Tablet) 300 MCG-600 MCG-300 MCG TABLET 1 TAB PO DAILY SUPPLEMENT (Reported) Oxycodone HCl/Acetaminophen (Percocet 5-325 MG Tablet) 5 MG-325 MG TABLET 1-2 TAB PO Q4P PRN PAIN Pantoprazole Sodium (Protonix) 20 MG TABLET.DR 1 TAB PO DAILY ACID REFLUX ( Reported) Simethicone (Gas Relief) 125 MG CAPSULE 1 CAP PO EOD GAS (Reported) Simvastatin (Zocor*) 40 MG TABLET 1 TAB PO DAILY CHOLESTEROL (Reported) Tamsulosin HCl (Flomax) 0.4 MG CAP.ER.24H 1 CAP PO DAILY PROSTATE (Reported) Ubidecarenone (Co Q-10) (Unknown Strength) CAPSULE (Unknown Dose) PO DAILY SUPPLEMENT (Reported) Past History Travel History Traveled to [place] past 21 day No Medical History Blood Transfusion Hx: No Neurological: NONE EENT: NONE Cardiovascular: hypertension Respiratory: COPD Gastrointestinal: constipation Hepatic: NONE Renal: NONE Psychiatric: anxiety, depression Endocrine: hypothyroidism Blood Disorders: NONE Cancer(s): NONE 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 TURP History of MRSA: No History of VRE: No History of CDIFF: No Isolation History: Standard Influenza Vaccine: 03/31/17 Surgical History Surgical History: TURP, bilateral rotator cuff repair Psychosocial History Smoking Status: Former Smoker Review of Systems Review of Systems All Other Systems: Reviewed and Negative Exam & Diagnostic Data Last 24 Hrs of Vital Signs/I&O Vital Signs Date Time Temp Pulse Resp B/P B/P Pulse O2 O2 Flow FiO2 Mean Ox Delivery Rate 08/04 0852 99.3 75 18 154/80 08/04 0852 99.3 75 18 154/80 08/04 0602 99.3 75 18 154/80 92 Room Air 08/03 2221 98.8 69 19 150/80 95 Room Air 08/03 1518 97.6 57 20 154/88 95 Intake & Output 08/04 1600 08/04 0800 08/04 0000 Intake Total 900 200 Output Total 1000 Balance -100 200 Intake, IV 600 Intake, Oral 300 200 Output, Urine 1000 Physical Exam Other Physical Findings: He is awake and alert, confused and disoriented, but in no acute distress. He is afebrile. Skin reveals no rash. HEENT exam is negative. Neck is supple with no adenopathy. Lungs are clear. Heart regular rhythm with no murmur. Abdomen is soft, nontender with positive bowel sounds; suprapubic tube in place with no inflammation at the site. Back no CVA tenderness. Extremities no cyanosis, clubbing or edema. Neuro is without focality. Last 24 Hours of Lab Results: Laboratory Tests 08/03 08/02 0730 2315 Chemistry Sodium (137 - 145 mmol/L) 143 143 Potassium (3.5 - 5.1 mmol/L) 4.4 4.5 Chloride (98 - 107 mmol/L) 109 H 107 Carbon Dioxide (22 - 30 mmol/L) 23 24 Anion Gap (5 - 16) 11 12 BUN (9 - 20 mg/dL) 41 H 45 H Creatinine (0.7 - 1.2 mg/dL) 1.3 H 1.4 H Estimated GFR (>60 ml/min) 54 L 49 L BUN/Creatinine Ratio (7 - 25 %) 31.5 H 32.1 H Glucose (65 - 99 mg/dL) 99 Calcium (8.4 - 10.2 mg/dL) 9.5 Hematology CBC w Diff NO MAN DIFF REQ NO MAN DIFF REQ WBC (4.8 - 10.8 /CUMM) 6.8 7.6 RBC (4.70 - 6.10 /CUMM) 3.38 L 3.50 L Hgb (14.0 - 18.0 G/DL) 10.6 L 10.9 L Hct (42 - 52 %) 31.5 L 32.6 L MCV (80.0 - 94.0 FL) 93.3 93.2 MCH (27.0 - 31.0 PG) 31.4 H 31.3 H MCHC (33.0 - 37.0 G/DL) 33.6 33.5 RDW (11.5 - 14.5 %) 13.1 13.1 Plt Count (130 - 400 /CUMM) 306 360 MPV (7.4 - 10.4 FL) 7.2 L 6.6 L Gran % (42.2 - 75.2 %) 66.5 64.6 Lymphocytes % (20.5 - 51.1 %) 18.6 L 21.6 Monocytes % (1.7 - 9.3 %) 8.4 9.0 Eosinophils % (0 - 5 %) 5.9 H 4.3 Basophils % (0.0 - 2.0 %) 0.6 0.5 Absolute Granulocytes (1.4 - 6.5 /CUMM) 4.5 4.9 Absolute Lymphocytes (1.2 - 3.4 /CUMM) 1.3 1.6 Absolute Monocytes (0.10 - 0.60 /CUMM) 0.6 0.7 H Absolute Eosinophils (0.0 - 0.7 /CUMM) 0.4 0.3 Absolute Basophils (0.0 - 0.2 /CUMM) 0 0 05/05 2154 Urines Urine Color (YEL,AMB,STR) GREEN H Urine Clarity (CLEAR) HAZY H Urine pH (5.0 - 8.0) 6.5 Ur Specific [place] (1.001 - 1.035) >= 1.030 Urine Protein (NEG,<30 MG/DL) 100 H Urine Ketones (NEG) NEG Urine Nitrite (NEG) NEG Urine Bilirubin (NEG) NEG@ICTO Urine Urobilinogen (0.1 - 1.0 EU/dl) 0.2 Ur Leukocyte Esterase (NEG) MOD H Ur Microscopic SEDIMENT EXAMINED Urine RBC (0 - 5 /HPF) 25-50 H Urine WBC (0 - 2 /HPF) > 75 H Ur Epithelial Cells (NONE,FEW) RARE Urine Bacteria (NEG/NONE) MANY H Urine Hemoglobin (NEG) MOD H Urine Glucose (N MG/DL) NEG Last 24 Hours of Luis Alberto Results: Blood cultures August 03 negative Urine culture August 02 negative Urine culture July 29 approximately 40,000 colonies of Acinetobacter sensitive to Unasyn, Ciprofloxacin, Gentamicin and Bactrim Diagnostic Data Recent Imaging Findings: Chest x-ray negative. CT of the head negative. CT of the abdomen and pelvis revealed mild stranding and edema in the perivesical fat of the bladder, with no nephrolithiasis or obstructive uropathy, a 2 cm mass in the lower pole of the left kidney and a markedly enlarged and heterogeneous prostate gland Assessment/Plan Assessment/Plan Impression: This is a 77-year-old man with a history of BPH, status post a TURP, with placement of a suprapubic catheter, 3 weeks prior to admission, with several days of confusion postoperatively and persistent dysuria since surgery, begun on Ciprofloxacin 2 days prior to admission for a urine culture positive for 40,000 colonies of Acinetobacter, admitted on August 02 with several episodes of confusion and hallucinations, beginning after the Ciprofloxacin, with persistent dysuria since surgery, found to be afebrile with a normal white blood cell count and pyuria and with a CT of the abdomen and pelvis revealed mild stranding and edema in the perivesical fat of the bladder and a 2 cm mass in the lower pole of the left kidney. The etiology of his confusion is unclear. It is most likely medication related given that it began after his surgery, with no confusion reported preoperatively. Ciprofloxacin can cause confusion and hallucinations, and it could be responsible for his more recent symptoms, though it would not explain his confusion postoperatively. The recent positive urine culture is of unclear significance as it was apparently a "clean catch" and it does not appear that his symptoms responded to Ciprofloxacin, though the Ciprofloxacin does appear to have cleared his bacteriuria. Of note he has a suprapubic catheter in place, which could explain his pyuria. The significance of the 2 cm mass in the lower pole of the left kidney is unclear and he will require further evaluation for this. It is not clear if he will continue to require the suprapubic catheter and Urology input will be helpful. Suggestion: 1. Urology evaluation regarding the suprapubic tube and further evaluation of his left renal mass 2. Discontinue Myrbetriq and any other unessential/new medications 3. Discontinue Ceftriaxone 4. Begin Bactrim double strength 1 p.o. every 12 hours pending above Consult Acknowledgment - Thank you for your consult request.
--- NOTE | 2017-08-04 13:02 | Cons- Neurology ---
General Information and HPI Consulting Request Date of Consult: 08/04/17 Requested By: Booker Wen MD History of Present Illness: 77-year-old male admitted with heightened confusion and hallucinosis approximately 3 weeks status post transurethral prostatectomy and placement of a suprapubic tube. Following the patient's surgery he began to complain of dysuria and was treated with Myrbetriq. He underwent two urinalyses and cultures, the second being positive for Acinetobacter. He was started on ciprofloxacin several days prior to admission however he developed confusion, hallucinosis and mild agitation for which he is now requiring soft restraints. He ciprofloxacin was changed to ceftriaxone but quickly switched to Bactrim. He has had no fever or leukocytosis. He is currently being seen by infectious disease. The patient's significant other adamantly states that his cognition prior to surgery was completely intact. He had been seen by my associate in January 2016 due to REM behavior disorder. Allergies/Medications Allergies: Coded Allergies: Penicillins (UNKNOWN 07/10/17) venom-honey bee (UNKNOWN 07/10/17) Home Med List: Aspirin (Ecotrin*) 81 MG TABLET.DR 1 TAB PO DAILY HEART/BLOOD (Reported) Citalopram Hydrobromide (Citalopram HBr) 20 MG TABLET 1 TAB PO DAILY MENTAL HEALTH (Reported) Cyanocobalamin (Vitamin B-12) (Unknown Strength) TABLET (Unknown Dose) PO DAILY SUPPLEMENT (Reported) Docusate Sodium (Colace) 100 MG CAPSULE CONSTIPATION (Reported) Fenofibrate 160 MG TABLET 0.5 TAB PO DAILY CHOLESTEROL (Reported) Levothyroxine Sodium (Synthroid) 25 MCG TABLET 1 TAB PO DAILY AC THYROID ( Reported) Lisinopril 20 MG TABLET 1 TAB PO DAILY BP (Reported) Melatonin 3 MG TABLET 1 TAB PO QPM SLEEP (Reported) Metoprolol Tartrate (Lopressor) 50 MG TABLET 1 TAB PO DAILY HEART/BP ( Reported) Multivit-Min/FA/Lycopen/Lutein (Centrum Silver Men Tablet) 300 MCG-600 MCG-300 MCG TABLET 1 TAB PO DAILY SUPPLEMENT (Reported) Oxycodone HCl/Acetaminophen (Percocet 5-325 MG Tablet) 5 MG-325 MG TABLET 1-2 TAB PO Q4P PRN PAIN Pantoprazole Sodium (Protonix) 20 MG TABLET.DR 1 TAB PO DAILY ACID REFLUX ( Reported) Simethicone (Gas Relief) 125 MG CAPSULE 1 CAP PO EOD GAS (Reported) Simvastatin (Zocor*) 40 MG TABLET 1 TAB PO DAILY CHOLESTEROL (Reported) Tamsulosin HCl (Flomax) 0.4 MG CAP.ER.24H 1 CAP PO DAILY PROSTATE (Reported) Ubidecarenone (Co Q-10) (Unknown Strength) CAPSULE (Unknown Dose) PO DAILY SUPPLEMENT (Reported) Review of Systems Review of Systems: Unobtainable due to his mental status Past History Travel History Traveled to [place] past 21 day No Medical History Blood Transfusion Hx: No Neurological: NONE EENT: NONE Cardiovascular: hypertension Respiratory: COPD Gastrointestinal: constipation Hepatic: NONE Renal: NONE Psychiatric: anxiety, depression Endocrine: hypothyroidism Blood Disorders: NONE Cancer(s): NONE 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 Home Services at Home: None Smoking Status: Former Smoker Exam & Diagnostic Data Vital Signs and I&O Vital Signs Date Time Temp Pulse Resp B/P B/P Pulse O2 O2 Flow FiO2 Mean Ox Delivery Rate 08/04 0852 99.3 75 18 154/80 / 0852 99.3 75 18 154/80 05/07 0602 99.3 75 18 154/80 92 Room Air / 2221 98.8 69 19 150/80 95 Room Air / 1518 97.6 57 20 154/88 95 Intake & Output 08/04 1600 / 0800 08/04 0000 Intake Total 900 200 Output Total 1000 Balance -100 200 Intake, IV 600 Intake, Oral 300 200 Output, Urine 1000 Elderly white male, fully awake and alert, in no acute distress. He was in soft restraints. He was disoriented to time and place. He could not name the current President. Speech was fluent. The head was normocephalic and atraumatic. Neck was supple. He pulls were equal. Extraocular movements were full. The face was symmetric. Tongue was midline. The motor examination showed normal tone and bulk throughout. There was no gross focal or lateralizing weakness. Deep tendon reflexes were diffusely hypoactive. Plantar responses were flexor. Fine finger movements were performed adequately. Gait was untested. Assessment/Plan Assessment: The patient presents with a postoperative encephalopathy. In all likelihood, this is due to medications, stress of surgery and/or infection. Oftentimes, this is seen in people with a baseline of cognitive impairment however his denies any prior cognitive issues. His examination is nonfocal. 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 Recommendations: #1 continue soft restraints as necessary #2 judicious use of low-dose anxiolytics/antipsychotics such as Seroquel 12.5 mg twice a day or lorazepam 0.5 mg, if needed. #3 Would attempt to get him out of bed with observation and assistance and ambulate initially with physiotherapy #4 do not believe that further neurodiagnostic studies would be enlightening #5 we would be happy to reevaluate him in the office setting several weeks following discharge. I have discussed the above with his and have attempted to reassure her that we are optimistic for eventual return to baseline. Should he be slow to improve , he may benefit from a period of short-term rehabilitation. Consult Acknowledgment - Thank you for your consult request.
[2017-08-04 15:01] VITALS: BP 160/82
[2017-08-04 22:07] VITALS: BP 180/100
[2017-08-05 06:37] VITALS: BP 160/88
--- NOTE | 2017-08-05 07:48 | PN- Housestaff ---
Beni VALERIO,[place]vel 08/05/17 0747: Subjective Follow-up For: Acute delirium, UTI Complaints: pt was confused and agitated last night as well Subjective: Patient followed up by me today. He still appears to be confused, in restraints , is disoriented, but is cooperative. He is trying to get off the bed but has soft restraints. 1:[address] His girlfriend Edel is by bedside. He was restless and agitated overnight as well per nursing staff. Review of Systems Constitutional: Reports: see HPI. Objective Last 24 Hrs of Vital Signs/I&O Vital Signs Date Time Temp Pulse Resp B/P B/P Pulse O2 O2 Flow FiO2 Mean Ox Delivery Rate 08/05 1516 98.3 78 22 172/84 94 Room Air 08/05 0746 98.1 80 22 160/88 / 0745 98.1 80 22 160/88 /08 0637 98.1 80 22 160/88 93 Room Air 05/ 0000 93 Room Air 08/04 2207 99.0 81 22 180/100 93 Room Air Intake & Output 08/05 1600 /08 0800 05/08 0000 Intake Total 1500 960 Output Total 750 1000 Balance 750 -1000 960 Intake, IV 700 600 Intake, Oral 800 360 Output, Urine 750 1000 Physical Exam General Appearance: Cooperative, No Acute Distress, disoriented Other Physical Findings: Skin Temp/Moisture Exam: Warm/Dry HEENT Atraumatic, PERRLA, EOMI, moist mucous membranes Neck Supple, No JVD Lymphatic Cervical nl Cardiovascular Regular Rate, Normal S1, Normal S2, No Murmurs Lungs Clear to Auscultation, Normal Air Movement Abdomen Normal Bowel Sounds, Soft, No Tenderness, suprapubic cath in situ/no redness around it Extremities No Clubbing, No Cyanosis Neurology Patient is disoriented, speech is not coherent, gets slightly agitated at times, but tried to hold conversation; unable to carry out full assessment Current Medications: Current Medications Sig/Shaista Start time Last Medication Dose Route Stop Time Status Admin Acetaminophen 325 MG Q6 PRN 08/03 0330 AC PO Aspirin Buffered 81 MG DAILY 08/03 0900 AC 05 PO 0745 Atorvastatin Calcium 20 MG 1700 08/03 1700 AC 08/04 PO 1731 Benztropine Mesylate 1 MG ONCE PRN 08/05 1600 AC IV Citalopram 20 MG DAILY 08/03 899 AC 08/05 Hydrobromide PO 0745 Diphenhydramine HCl 50 MG ONCE ONE 08/05 1515 DC 08/05 IV 08/05 1516 1514 Fenofibrate 48 MG DAILY 08/03 899 AC 08/05 PO 0746 Haloperidol 1 MG BID PRN 08/05 0900 DC 08/05 PO 1332 Heparin Sodium 5,000 UNIT Q8 08/03 599 AC 08/05 (Porcine) SC 1332 Lactobacillus 1 CAP BID 08/04 2100 AC 08/05 Acidophilus PO 0746 Levothyroxine Sodium 0.025 MG DAILY AC 08/03 699 AC 08/05 PO 0654 Melatonin 3 MG QPM 08/03 2099 AC 08/04 PO 2017 Metoprolol Tartrate 50 MG DAILY 08/03 899 AC 08/05 PO 0746 Omeprazole 20 MG DAILY AC 08/03 699 AC 08/05 PO 0654 Quetiapine Fumarate 25 MG ONCE ONE 08/06 1999 AC PO 08/05 2000 Quetiapine Fumarate 12.5 MG ONCE PRN 08/04 1900 DC 08/04 PO 2016 Senna/Docusate Sodium 1 TAB BID PRN 08/05 0845 AC 08/05 PO 0935 Sodium Chloride 1,000 ML Q13H 08/03 0430 AC 08/05 IV 0752 Tamsulosin HCl 0.4 MG DAILY 08/03 899 AC 08/05 PO 0745 Trimethoprim/ 1 TAB BID 08/04 2100 AC 08/05 Sulfamethoxazole PO 0745 Last 24 Hrs of Lab/Luis Alberto Results Last 24 Hrs of Labs/Mics: Laboratory Tests 08/05/17 0740: Anion Gap 11, Estimated GFR 59 L, BUN/Creatinine Ratio 18.3, CBC w Diff NO MAN DIFF REQ, RBC 3.45 L, MCV 92.5, MCH 31.5 H, MCHC 34.1, RDW 12.8, MPV 7.1 L, Gran % 75.6 H, Lymphocytes % 11.8 L, Monocytes % 8.7, Eosinophils % 3.5, Basophils % 0.4, Absolute Granulocytes 4.6, Absolute Lymphocytes 0.7 L, Absolute Monocytes 0.5, Absolute Eosinophils 0.2, Absolute Basophils 0 Assessment/Plan Assessment: 77 yo M with pmh of HTN, HLD, hypothyroidism, COPD, depression is here for worsening confusion that initially started after "few (?2-3)" days after his recent TURP procedure. 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 His previous U cx was negative on 07/18/17. His urine culture at that time showed Acinetobacter lwoffii (40,000 CFU) sensitive to Ciprofloxacin, Ampi/Sulbactam, Genta, Bactrim. UA has pyuria >75, mod LE among others, U Cx from 08/02/17 so growth so far. * Patient has UTI but could have confusion due to Ciprofloxacin as well, althought this is not the most comon side effect of Cipro. Continue to avoid Cipro. * Initially thinking of Ceftriaxone although he is allergic to PCN, but later changed to Bactrim per ID recs. Pt did NOT receive Ceftriaxone. * Pending final culture of U Cx. # Acute delirium Patient has worsening delirium, which could be multifactorial, including anticholinergic medication he is getting for urinary symptoms, ciprofloxacin for UTI, dehydration, sundowning. Of note, his girlfriend tells us that all this is new to him. * UTI is being treated with abx * Possible offending meds discontinued, e.g. Mirabegron, Ciprofloxacin * Frequent reorientation * Soft restraints in upper ext b/l * Patient safety monitor ordered * Patient received 12.5 mg of Seroquel last night, but still had delirious state , thus received 1 mg of oral Haldol this morning. After this episode, he suffered what appears to be like an acute dystonic reaction, and partially amenable to Benadryl, thus was also given IV instrument 1 mg. See today's event notes for further details. * Psychiatry consultation appreciated, also mentioned to check if cervical 25 mg tonight could help him further. Also patient can be given repeated dose of Benadryl for 1 more time. * Will consult psychiatry if clinical situation deteriorates, else daily. * Neurology recs appreciated #MADDISON Baseline to compare: Creatinine increased from 1.1 to 1.4, which is an increase of 0.4 mg/dL defining MADDISON. Likely from dehydration. Continue Will keep off nephrotoxic drugs. Catheter not clogged/blocked. IV fluids to continue @100ml/ hr. Need to stop if his oral intake and renal status is better tomorrow. # Recent Urologic surgery SPC does not seem to have surrounding signs of cellulitis. Patient has a renal mass on Left side, that needs follow up by Urology, might not be immediate priority. Will wait for Dr Davalos recs. Diet: Regular diet DVT ppx: SQ Heparin Code status: DNR/DNI Problem List: 1. UTI (urinary tract infection) 2. Acute delirium 3. S/P transurethral resection of prostate Pain Ratin (cannot assess now) Pain Location: - Pain Goal: Pain 4 or less Pain Plan: prn Tomorrow's Labs & Rationales: BEP, CBC Bettye VALERIO,[place] 08/05/17 8268: Attending MD Review Statement Attending Statement Attending MD Statement: examined this patient, discuss w/resident/PA/MESS ATTENDANT, agreed w/resident/PA/MESS ATTENDANT, discussed with family, reviewed EMR data (avail), discussed with nursing, discussed with case mgmt, amended to note Attending Assessment/Plan: The patient was seen several times today with resident. Appreciate ID, Urology, Neurology and Psychiatry input (spoke with Dr. Floyd). Continues to have delirium and did not sleep last pm. Did receive Seroquel 12.5 mg last pm w/o effect. Received Haldol 1 mg po today and subsequently had dystonic reaction ( treated with IV Benadryl, Cogentin). Will use Seroquel 25 mg this evening as per Dr. Floyd (2nd generation anti-psychotic much less prone to dystonia). Moved patient to bed by window today to assist with day/night orientation. Continue Bactrim as per ID. Dr. Davalos saw patient today as well and will follow.
[2017-08-05 09:01] LABS: ABSOLUTE BASOPHIL COUNT 0 /CUMM (0.0-0.2); ABSOLUTE EOSINOPHIL COUNT 0.2 /CUMM (0.0-0.7); ABSOLUTE GRANULOCYTE CT 4.6 /CUMM (1.4-6.5); ABSOLUTE LYMPH COUNT 0.7 /CUMM (1.2-3.4); ABSOLUTE MONOCYTE COUNT 0.5 /CUMM (0.10-0.60); BASOPHIL % 0.4 % (0.0-2.0); EOSINOPHIL % 3.5 % (0-5); GRANULOCYTE % 75.6 % (42.2-75.2); HEMATOCRIT 31.9 % (42-52); MEAN CORPUSCULAR HGB 31.5 PG (27.0-31.0); MEAN CORPUSCULAR HGB CONC 34.1 G/DL (33.0-37.0); MEAN CORPUSCULAR VOLUME 92.5 FL (80.0-94.0); MEAN PLATELET VOLUME 7.1 FL (7.4-10.4); PLATELET COUNT 301 /CUMM (130-400); RBC DISTRIBUTION WIDTH 12.8 % (11.5-14.5); RED BLOOD CELL CT 3.45 /CUMM (4.70-6.10); WHITE BLOOD CELL COUNT 6.1 /CUMM (4.8-10.8)
--- NOTE | 2017-08-05 10:37 | PN- Infect Dx ---
Subjective Subjective: Afebrile. He remains confused though does have periods of lucidity. Objective Last 24 Hrs of Vital Signs/I&O Vital Signs Date Time Temp Pulse Resp B/P B/P Pulse O2 O2 Flow FiO2 Mean Ox Delivery Rate 08/05 0746 98.1 80 22 160/88 /08 0745 98.1 80 22 160/88 05/08 0637 98.1 80 22 160/88 93 Room Air 05/08 0000 93 Room Air 08/04 2207 99.0 81 22 180/100 93 Room Air 08/04 1501 97.8 62 20 160/82 95 Room Air Intake & Output 08/05 1600 /08 0800 05/08 0000 Intake Total 960 Output Total 1000 Balance -1000 960 Intake, IV 600 Intake, Oral 360 Output, Urine 1000 Physical Exam Other Physical Findings: He is awake and alert and is, at times, appropriate. Lungs are clear Heart regular rhythm with no murmur Abdomen is soft, nontender with positive bowel sounds; suprapubic catheter in place, draining clear urine, with no inflammation at the site Extremities no cyanosis, clubbing or edema Neuro myoclonic jerks Results Last 24 Hours of Lab Results: Laboratory Tests 08/05 0740 Chemistry Sodium (137 - 145 mmol/L) 146 H Potassium (3.5 - 5.1 mmol/L) 4.2 Chloride (98 - 107 mmol/L) 111 H Carbon Dioxide (22 - 30 mmol/L) 24 Anion Gap (5 - 16) 11 BUN (9 - 20 mg/dL) 22 H Creatinine (0.7 - 1.2 mg/dL) 1.2 Estimated GFR (>60 ml/min) 59 L BUN/Creatinine Ratio (7 - 25 %) 18.3 Hematology CBC w Diff NO MAN DIFF REQ WBC (4.8 - 10.8 /CUMM) 6.1 RBC (4.70 - 6.10 /CUMM) 3.45 L Hgb (14.0 - 18.0 G/DL) 10.9 L Hct (42 - 52 %) 31.9 L MCV (80.0 - 94.0 FL) 92.5 MCH (27.0 - 31.0 PG) 31.5 H MCHC (33.0 - 37.0 G/DL) 34.1 RDW (11.5 - 14.5 %) 12.8 Plt Count (130 - 400 /CUMM) 301 MPV (7.4 - 10.4 FL) 7.1 L Gran % (42.2 - 75.2 %) 75.6 H Lymphocytes % (20.5 - 51.1 %) 11.8 L Monocytes % (1.7 - 9.3 %) 8.7 Eosinophils % (0 - 5 %) 3.5 Basophils % (0.0 - 2.0 %) 0.4 Absolute Granulocytes (1.4 - 6.5 /CUMM) 4.6 Absolute Lymphocytes (1.2 - 3.4 /CUMM) 0.7 L Absolute Monocytes (0.10 - 0.60 /CUMM) 0.5 Absolute Eosinophils (0.0 - 0.7 /CUMM) 0.2 Absolute Basophils (0.0 - 0.2 /CUMM) 0 Last 24 Hours of Luis Alberto Results: Blood cultures August 03 negative Assessment/Plan ID Impression: Confusion persists, most likely secondary to medications, possibly the Myrbetriq or Ciprofloxacin, both of which were discontinued yesterday. He is now on Bactrim, Day 5 of treatment for a possible urinary tract infection secondary to Acinetobacter, isolated from a urine culture sent 4 days prior to admission, with his temperatures and white blood cell count remaining normal. Suggestion: 1. Await Urology evaluation regarding the suprapubic tube and left renal mass 2. Continue Bactrim
[2017-08-05 15:16] VITALS: BP 172/84
--- NOTE | 2017-08-05 15:21 | Event Note ---
Event Note Event Note: Subjective: I was informed by nursing staff and Dr Wen about abnormal jerky movements. No loss of consciousness, as the patient is responding to questions. Background: This is occuring in the setting of acute delirium and he has just received oral Haloperidol 1 mg today, about an hour ago. He had received 12.5 mg of Seroquel last night for the same. His anticholinergic medication, and other not-necessary medications were discontinued on admission and yesterday. Assessment/Recommendation: Clinical exam is consistent with acute dystonic reaction. -Raise head end of bed. -Inj. Benadryl 50 mg IV STAT given. -[id number] paged. -Suggestion from Psychiatrist: * STOP Haldol * Can repeat 50 mg IV Benadryl if necessary once. * Next in line would be Inj Benztropine 1mg IV. * Call Psych-sap solution manager consultant or Crisis if necessary. * Acknowledged that the patient had 12.5 mg last night. First gen antipsychotics can cause EPS more often but Seroquel is second gen and is less likely to be the cause of EPS. * Start Tab Seroquel 25 mg tonight. -Orders placed accordingly. -Dr Wen by the bedside and also explained the family member Edel (patient's girlfriend).
--- NOTE | 2017-08-05 17:01 | Cons- Urology ---
General Information and HPI Consulting Request Date of Consult: 08/05/17 Requested By: Booker Wen MD Reason for Consult: recent surgery, UTI Source of Information: friend Exam Limitations: unable to give history, not alert/orientated, dementia History of Present Illness: This is a 77-year-old male with a PMH of hypertension, hyperlipidemia, BPH and recent TURP and SPT on 07/10/2017 who was sent into the ED by Dr. Sifuentes for confusion and UTI. He has had bouts of waxing and waning confusion which worsened prior to his admission. His girlfriend reported that the patient has been delirious and delusional and has been quite confused at home. He has also been complaining of penile pain, dysuria and increased frequency of urination for which he was started on ciprofloxacin. Patient denies any chest pain, palpitations, nausea, vomiting, abdominal pain, urinary or bowel symptoms. He denies any fevers, chills or urinary symptoms. Vitals in the ED temperature 96.6, pulse 63, respiration 18, blood pressure 133/ 82, saturating 95% on room air. Labs significant for H&H 10/32.6(baseline 12), creatinine 1.4(baseline 1.1) UA was dirty with positive leukocyte esterase, positive nitrate and >[address] was negative for any acute event. Allergies/Medications Allergies: Coded Allergies: haloperidol (From HALDOL) (Severe, TONIC REACTION 08/05/17) Penicillins (UNKNOWN 07/10/17) venom-honey bee (UNKNOWN 07/10/17) Home Med List: Aspirin (Ecotrin*) 81 MG TABLET.DR 1 TAB PO DAILY HEART/BLOOD (Reported) Citalopram Hydrobromide (Citalopram HBr) 20 MG TABLET 1 TAB PO DAILY MENTAL HEALTH (Reported) Cyanocobalamin (Vitamin B-12) (Unknown Strength) TABLET (Unknown Dose) PO DAILY SUPPLEMENT (Reported) Docusate Sodium (Colace) 100 MG CAPSULE CONSTIPATION (Reported) Fenofibrate 160 MG TABLET 0.5 TAB PO DAILY CHOLESTEROL (Reported) Levothyroxine Sodium (Synthroid) 25 MCG TABLET 1 TAB PO DAILY AC THYROID ( Reported) Lisinopril 20 MG TABLET 1 TAB PO DAILY BP (Reported) Melatonin 3 MG TABLET 1 TAB PO QPM SLEEP (Reported) Metoprolol Tartrate (Lopressor) 50 MG TABLET 1 TAB PO DAILY HEART/BP ( Reported) Multivit-Min/FA/Lycopen/Lutein (Centrum Silver Men Tablet) 300 MCG-600 MCG-300 MCG TABLET 1 TAB PO DAILY SUPPLEMENT (Reported) Oxycodone HCl/Acetaminophen (Percocet 5-325 MG Tablet) 5 MG-325 MG TABLET 1-2 TAB PO Q4P PRN PAIN Pantoprazole Sodium (Protonix) 20 MG TABLET.DR 1 TAB PO DAILY ACID REFLUX ( Reported) Simethicone (Gas Relief) 125 MG CAPSULE 1 CAP PO EOD GAS (Reported) Simvastatin (Zocor*) 40 MG TABLET 1 TAB PO DAILY CHOLESTEROL (Reported) Tamsulosin HCl (Flomax) 0.4 MG CAP.ER.24H 1 CAP PO DAILY PROSTATE (Reported) Ubidecarenone (Co Q-10) (Unknown Strength) CAPSULE (Unknown Dose) PO DAILY SUPPLEMENT (Reported) Current Medications: Current Medications Sig/Shaista Start time Last Medication Dose Route Stop Time Status Admin Acetaminophen 325 MG Q6 PRN 08/03 0330 AC PO Aspirin Buffered 81 MG DAILY 08/03 899 AC 08/05 PO 0745 Atorvastatin Calcium 20 MG 1700 08/03 1700 AC 08/05 PO 1625 Benztropine Mesylate 1 MG ONCE PRN 08/05 1600 AC 08/05 IV 1622 Citalopram 20 MG DAILY 08/03 899 AC 08/05 Hydrobromide PO 0745 Diphenhydramine HCl 50 MG ONCE ONE 08/05 1515 DC / IV 08/05 1516 1514 Fenofibrate 48 MG DAILY 08/03 899 AC 08/05 PO 0746 Haloperidol 1 MG BID PRN 08/05 0900 DC 08/05 PO 1332 Heparin Sodium 5,000 UNIT Q8 08/03 599 AC 08/05 (Porcine) SC 1332 Lactobacillus 1 CAP BID 08/04 2099 AC 08/05 Acidophilus PO 0746 Levothyroxine Sodium 0.025 MG DAILY AC 08/03 699 AC 08/05 PO 0654 Melatonin 3 MG QPM 08/03 2099 AC 08/04 PO 2017 Metoprolol Tartrate 50 MG DAILY 08/03 899 AC 08/05 PO 0746 Omeprazole 20 MG DAILY AC 08/03 699 AC 08/05 PO 0654 Quetiapine Fumarate 25 MG ONCE ONE 08/06 1999 AC PO 08/05 2000 Quetiapine Fumarate 12.5 MG ONCE PRN 08/04 1900 DC 08/04 PO 2016 Senna/Docusate Sodium 1 TAB BID PRN 08/05 0845 AC 08/05 PO 0935 Sodium Chloride 1,000 ML Q13H 08/03 0430 AC 08/05 IV 0752 Tamsulosin HCl 0.4 MG DAILY 08/03 0900 AC 08/05 PO 0745 Trimethoprim/ 1 TAB BID 08/04 2100 AC 08/05 Sulfamethoxazole PO 0745 Past History Medical History Blood Transfusion Hx: No Neurological: NONE EENT: NONE Cardiovascular: hypertension Respiratory: COPD Gastrointestinal: constipation Hepatic: NONE Renal: NONE Psychiatric: anxiety, depression Endocrine: hypothyroidism Blood Disorders: NONE Cancer(s): NONE RECENTERER/Reproductive: BPH TURP Other Medical Hx: REM behavior disorder Surgical History Pertinent Surgical History: TURP bilateral rotator cuff repair Psychosocial History Where Do You Live? Home Who Do You Live With? girlfriend Services at Home: None Primary Language: Kyrgyz Smoking Status: Former Smoker Illicit Drug Use: denies illicit drug use Functional Ability ADLs Unknown: dressing, eating, toileting, bathing. Ambulation: independent Employment History Employment: Retired Review of Systems Review of Systems Constitutional: Reports: no symptoms. EENTM: Reports: no symptoms. Cardiovascular: Reports: no symptoms. Respiratory: Reports: no symptoms. GI: Reports: constipation. Genitourinary: Reports: dysuria, frequency, pain. Musculoskeletal: Reports: no symptoms. Skin: Reports: no symptoms. Neurological/Psychological: Reports: anxiety, dementia. Hematologic/Endocrine: Reports: no symptoms. Immunologic/Allergic: Reports: no symptoms. Exam & Diagnostic Data Vital Signs and I&O Vital Signs Date Time Temp Pulse Resp B/P B/P Pulse O2 O2 Flow FiO2 Mean Ox Delivery Rate 08/05 1516 98.3 78 22 172/84 94 Room Air 08/05 0746 98.1 80 22 160/88 / 0745 98.1 80 22 160/88 / 0637 98.1 80 22 160/88 93 Room Air 08/05 0000 93 Room Air 08/04 2207 99.0 81 22 180/100 93 Room Air Intake & Output 08/05 1600 08/05 0800 08/05 0000 08/04 1600 08/04 0808/04 0000 Intake Total 2972 499 8603 900 200 Output Total 750 1000 1000 Balance 750 -8911 607 2425 -100 200 Intake, IV 700 600 700 600 Intake, Oral 800 360 400 300 200 Output, Urine 750 1000 1000 Physical Exam General Appearance: well developed/nourished, alert, awake, anxious, moderate distress Head: atraumatic, normal appearance Eyes: Bilateral: normal appearance. Ears, Nose, Throat: normal ENT inspection Respiratory: no respiratory distress Gastrointestinal: soft, non-tender (SPT site with mild erythema) Rectal: deferred Extremities: normal inspection Neurologic/Psych: awake, alert Cranial Nerves: normal hearing, normal speech Skin: intact, normal color, warm/dry Reproductive: Normal male genitalia Last 24 Hours of Labs: Laboratory Tests 08/05 0740 Chemistry Sodium (137 - 145 mmol/L) 146 H Potassium (3.5 - 5.1 mmol/L) 4.2 Chloride (98 - 107 mmol/L) 111 H Carbon Dioxide (22 - 30 mmol/L) 24 Anion Gap (5 - 16) 11 BUN (9 - 20 mg/dL) 22 H Creatinine (0.7 - 1.2 mg/dL) 1.2 Estimated GFR (>60 ml/min) 59 L BUN/Creatinine Ratio (7 - 25 %) 18.3 Hematology CBC w Diff NO MAN DIFF REQ WBC (4.8 - 10.8 /CUMM) 6.1 RBC (4.70 - 6.10 /CUMM) 3.45 L Hgb (14.0 - 18.0 G/DL) 10.9 L Hct (42 - 52 %) 31.9 L MCV (80.0 - 94.0 FL) 92.5 MCH (27.0 - 31.0 PG) 31.5 H MCHC (33.0 - 37.0 G/DL) 34.1 RDW (11.5 - 14.5 %) 12.8 Plt Count (130 - 400 /CUMM) 301 MPV (7.4 - 10.4 FL) 7.1 L Gran % (42.2 - 75.2 %) 75.6 H Lymphocytes % (20.5 - 51.1 %) 11.8 L Monocytes % (1.7 - 9.3 %) 8.7 Eosinophils % (0 - 5 %) 3.5 Basophils % (0.0 - 2.0 %) 0.4 Absolute Granulocytes (1.4 - 6.5 /CUMM) 4.6 Absolute Lymphocytes (1.2 - 3.4 /CUMM) 0.7 L Absolute Monocytes (0.10 - 0.60 /CUMM) 0.5 Absolute Eosinophils (0.0 - 0.7 /CUMM) 0.2 Absolute Basophils (0.0 - 0.2 /CUMM) 0 Imaging Results: No acute intracranial pathology on CT of head Findings consistent with UTI on CT of abd/pelvis Assessment/Plan Assessment/Plan 77yo male with multiple med problems and BPH that failed dual therapy s/p TURP with SPT. He has had confusion postop that has been intermittent and no acute pathology on CT of the head. He is draining green clear UOP (Uribel use) and being treated for an UTI. His meds are being managed to hopefully improve his mental state gradually. He will FU as an outpatient next week for SPT change or sooner if issues with it. Spoke to girlfriend at length re: mental state and its multifactorial origin. Defer to med service and appreciate his care. Consult Acknowledgment - Thank you for your consult request.
[2017-08-05 18:53] VITALS: BP 190/94
--- NOTE | 2017-08-05 19:22 | Event Note ---
Event Note Event Note: Situation nurse called me for dystonic attack Background patient was given Haldol earlier today for acute delirium and developed acute dystonic attack Assessment patient had fever of 103, dystonic attack with mental status wasn't responsive to verbal stimuli Recommendation Discussed the case with Dr. Moulton Will transfer patient to ICU for close monitoring With repeat labs CBC, BMP, magnesium, phosphorus, lactic acid, creatinine kinase , trops, blood culture IVF CAT scan head without IV contrast Discontinue antibiotic Discussed the case with dispatcher maintenance Rajan Newton MD, we may consider dantrolene if patient continued to have fever despite conservative management I spoke with the patient next of kin Ms. Rossana Cooley phone #[phone] to update her about the patient and the transfer to ICU. I reviewed CODE STATUS as it was stating DNR only and she reported that based on patient's living well that was issued in 2010 and recently reviewed with him by herself patient is DO NOT RESUSCITATE and DO NOT INTUBATE
--- NOTE | 2017-08-05 19:35 | Event Note ---
Event Note Event Note: Code status changed to DNR/DNI. Living will 2010. The copy of living will in the chart. As per the conversation with Dr. Hart, with the pts family. The code status to DNR/DNI. 730 PM. Reached out to the neurologist web development consultant, who recommended that, if NMS is suspected it should be treated. No further recs from the neurologist. Mr Duffy continued to have purposeless movements, and was not responsive to verbal stimuli. He did not have any clonus on examination, and it wasnt very clear if he had any rigidity. At this time the differential diagnoses were wide, including worsening altered mental status secondary to sepsis, possible NMS. CK was checked, which revealed level of 926 slighly elevated likely secondary to his muscle twitches, and less likely from NMS, but possible. Discussed w/ Dr. Newton who recommended to start Dantrolene, which was ordered. The pt was given tylenol, and was kept on cooling blankets. He was also given ativan, and plan was to monitor the pt closely. In the mean while poison control ( Dr. Malloy was contacted ) was called, who recommended to watch off dantrolene and contiune current managemnt w/ APAP and avoid haldol. He was continued on aggressive fluid replacement as per Dr Newton. Dantrolene was ordered, and unfortunately there was no infusion protocol in place. The pharmacy arranged for the dantrolene, to be given over infusion instead of push. On follow up examination of Mr Duffy, he did not have any purposeless movements, and was asleep. The vitals remained stable, and temperature came down to 99.0. Discussed the new exam findings w/ Dr. Newton who recommended that, if the Dantrolene has not been started infusing, it can be held. Informed the nursing staff. If the pt is febrile again, would attempt at giving another tylenol. In regards to his sepsis, Bactrim was held given his current clinical condition. Plan was to start him on alternative medication, such as unansyn but he is known to have Pen allergy. Tried reaching out to ID risk consultant a few times, and unfortunately couldnt hear back from him; likely due to technical defect. Since, he is late by a few hours of Bactrim dose, Meropenem was ordered. Although it has a very small percentage of overalp with penicillin in regards tocross reactivity, the risk is very minimal. Discussed w/ Dr Newton. Would change the abx, pending repeat culture results.
[2017-08-05 19:53] LABS: ABSOLUTE BASOPHIL COUNT 0 /CUMM (0.0-0.2); ABSOLUTE EOSINOPHIL COUNT 0.1 /CUMM (0.0-0.7); ABSOLUTE LYMPH COUNT 0.4 /CUMM (1.2-3.4); ABSOLUTE MONOCYTE COUNT 0.5 /CUMM (0.10-0.60); BASOPHIL % 0.1 % (0.0-2.0); EOSINOPHIL % 2.2 % (0-5); GRANULOCYTE % 82.7 % (42.2-75.2); HEMATOCRIT 31.7 % (42-52); MEAN CORPUSCULAR HGB 31.5 PG (27.0-31.0); MEAN CORPUSCULAR HGB CONC 33.7 G/DL (33.0-37.0); MEAN CORPUSCULAR VOLUME 93.5 FL (80.0-94.0); MEAN PLATELET VOLUME 6.9 FL (7.4-10.4); PLATELET COUNT 285 /CUMM (130-400); RBC DISTRIBUTION WIDTH 12.8 % (11.5-14.5); RED BLOOD CELL CT 3.39 /CUMM (4.70-6.10)
--- NOTE | 2017-08-05 20:48 | Cons- CRCU ---
General Information and HPI Consulting Request Date of Consult: 08/05/17 Requested By: med team History of Present Illness: 77-year-old male admitted with heightened confusion and hallucinosis approximately 3 weeks status post transurethral prostatectomy and placement of a suprapubic tube. Following the patient's surgery he began to complain of dysuria and was treated with Myrbetriq. He underwent two urinalyses and cultures, the second being positive for Acinetobacter. He was started on ciprofloxacin several days prior to admission however he developed confusion, hallucinosis and mild agitation for which he is now requiring soft restraints. He ciprofloxacin was changed to ceftriaxone but quickly switched to Bactrim. No prior cognition issues prior to surgery was completely intact. Since admission patient has been treated with the antipsychotics. He had received Seroquel, Haldol. Since this morning patient has been increasingly agitated and was found to have significant fever 0103.2. He was also noted to have significant dystonic reaction with myoclonic jerks. Psychiatry was informed and they had recommended to start him on Benadryl and benzo troponin as it appeared that he was having significant dystonic reaction. Subsequently he has had a significant febrile episodes and as he became progressively more confused is now transferred to the ICU. Patient has had previous history of depression for which she was on citalopram. Upon admission to the hospital per neurology note he did not have any significant evidence suggestive of hyperreflexia or clonus. When I saw him he was completely obtunded unresponsive with a temperature 103 with significant dystonic reaction with significant myoclonic jerks noted. He was moving his extremities. He was at times quite rigid. His blood work done this evening did show that his CPKs elevated now to 926. Allergies/Medications Allergies: Coded Allergies: haloperidol (From HALDOL) (Severe, TONIC REACTION 08/05/17) Penicillins (UNKNOWN 07/10/17) venom-honey bee (UNKNOWN 07/10/17) Home Med List: Aspirin (Ecotrin*) 81 MG TABLET.DR 1 TAB PO DAILY HEART/BLOOD (Reported) Citalopram Hydrobromide (Citalopram HBr) 20 MG TABLET 1 TAB PO DAILY MENTAL HEALTH (Reported) Cyanocobalamin (Vitamin B-12) (Unknown Strength) TABLET (Unknown Dose) PO DAILY SUPPLEMENT (Reported) Docusate Sodium (Colace) 100 MG CAPSULE CONSTIPATION (Reported) Fenofibrate 160 MG TABLET 0.5 TAB PO DAILY CHOLESTEROL (Reported) Levothyroxine Sodium (Synthroid) 25 MCG TABLET 1 TAB PO DAILY AC THYROID ( Reported) Lisinopril 20 MG TABLET 1 TAB PO DAILY BP (Reported) Melatonin 3 MG TABLET 1 TAB PO QPM SLEEP (Reported) Metoprolol Tartrate (Lopressor) 50 MG TABLET 1 TAB PO DAILY HEART/BP ( Reported) Multivit-Min/FA/Lycopen/Lutein (Centrum Silver Men Tablet) 300 MCG-600 MCG-300 MCG TABLET 1 TAB PO DAILY SUPPLEMENT (Reported) Oxycodone HCl/Acetaminophen (Percocet 5-325 MG Tablet) 5 MG-325 MG TABLET 1-2 TAB PO Q4P PRN PAIN Pantoprazole Sodium (Protonix) 20 MG TABLET.DR 1 TAB PO DAILY ACID REFLUX ( Reported) Simethicone (Gas Relief) 125 MG CAPSULE 1 CAP PO EOD GAS (Reported) Simvastatin (Zocor*) 40 MG TABLET 1 TAB PO DAILY CHOLESTEROL (Reported) Tamsulosin HCl (Flomax) 0.4 MG CAP.ER.24H 1 CAP PO DAILY PROSTATE (Reported) Ubidecarenone (Co Q-10) (Unknown Strength) CAPSULE (Unknown Dose) PO DAILY SUPPLEMENT (Reported) Review of Systems Review of Systems Constitutional: Reports: see HPI. Past History Travel History Traveled to [place] past 21 day No Medical History Blood Transfusion Hx: No Neurological: NONE EENT: NONE Cardiovascular: hypertension Respiratory: COPD Gastrointestinal: constipation Hepatic: NONE Renal: NONE Psychiatric: anxiety, depression Endocrine: hypothyroidism Blood Disorders: NONE Cancer(s): NONE [employer]/Reproductive: BPH TURP Other Medical Hx: REM behavior disorder Surgical History Surgical History: TURP bilateral rotator cuff repair Psychosocial History Where Do You Live? Home Who Do You Live With? girlfriend Services at Home: None Primary Language: Syrian Smoking Status: Former Smoker Illicit Drug Use: denies illicit drug use Functional Ability ADLs Unknown: dressing, eating, toileting, bathing. Ambulation: independent Employment History Employment: Retired Exam & Diagnostic Data Last 24 Hrs of Vital Signs/I&O Vital Signs Date Time Temp Pulse Resp B/P B/P Pulse O2 O2 Flow FiO2 Mean Ox Delivery Rate 08/06 1999 102.3 08/05 1910 103.2 08/05 1852 103.2 86 20 190/94 90 Nasal 2.0L Cannula 08/05 1516 98.3 78 22 172/84 94 Room Air 08/05 0746 98.1 80 22 160/88 /08 0745 98.1 80 22 160/88 /08 0637 98.1 80 22 160/88 93 Room Air /08 0000 93 Room Air 08/04 2207 99.0 81 22 180/100 93 Room Air Intake & Output 08/05 1600 08/05 0800 05 0000 Intake Total 1500 960 Output Total 750 1000 Balance 750 -1000 960 Intake, IV 700 600 Intake, Oral 800 360 Output, Urine 750 1000 Last 48 Hrs of Labs/Luis Alberto: Laboratory Tests 08/05/17 1930: Anion Gap 11, Estimated GFR 59 L, BUN/Creatinine Ratio 18.3, Lactic Acid 0.6 L , Phosphorus 2.4 L, Magnesium 1.6, Total Bilirubin 0.7, Direct Bilirubin 0.3, AST 50, ALT 36, Alkaline Phosphatase 51, Creatine Kinase 926 H, Troponin I < 0.01, Total Protein 5.7 L, Albumin 3.1 L, CBC w Diff NO MAN DIFF REQ, RBC 3.39 L, MCV 93.5, MCH 31.5 H, MCHC 33.7, RDW 12.8, MPV 6.9 L, Gran % 82.7 H, Lymphocytes % 7.2 L, Monocytes % 7.8, Eosinophils % 2.2, Basophils % 0.1, Absolute Granulocytes 5.0, Absolute Lymphocytes 0.4 L, Absolute Monocytes 0.5, Absolute Eosinophils 0.1, Absolute Basophils 0 08/05/17 0740: Anion Gap 11, Estimated GFR 59 L, BUN/Creatinine Ratio 18.3, CBC w Diff NO MAN DIFF REQ, RBC 3.45 L, MCV 92.5, MCH 31.5 H, MCHC 34.1, RDW 12.8, MPV 7.1 L, Gran % 75.6 H, Lymphocytes % 11.8 L, Monocytes % 8.7, Eosinophils % 3.5, Basophils % 0.4, Absolute Granulocytes 4.6, Absolute Lymphocytes 0.7 L, Absolute Monocytes 0.5, Absolute Eosinophils 0.2, Absolute Basophils 0 Assessment/Plan CRCU Impression/Plan: Obtunded, not responsive, MAXIMUM TEMPERATURE 103, pupils were small reactive to light Neck was supple but mildly rigid. Significant myoclonic jerks and dystonic movements noted Chest decreased breath sounds on both sides Heart S1-S2 was heard mildly tachycardic Abdominal exam soft Extremity appeared rigid, neurological exam could not be appropriately performed. Reflexes were brisk but not significantly hyper No significant clonus noted IMPRESSION This is a gentleman with history of hypertension, hyperlipidemia, previous BPH, recent TURP and suprapubic catheter done on July 10, subsequently had a UTI for which he did receive Cipro. He was then subsequently admitted to this hospital with confusion and data hallucinations which appeared to be most likely related to Cipro and infection-induced encephalopathy. Initial neurological exam was reviewed and at that time he did not appear to have hyperreflexia clonus. Patient has been on Lexapro at home. Subsequently as he became more encephalopathic on the floor he was treated with Seroquel and subsequently Haldol as well. Since this evening he has had significant elevated temperature and now he has worsening mental status, significant dystonic reaction which she is having at this time. His clinical symptoms and signs are highly suggestive of neuroleptic malignant syndrome Issues include Recent exposure to antipsychotic, significant hyperthermia, rigidity, altered mental status, significantly elevated CPK, hypertension, diaphoresis, tachycardia with no clinical evidence suggestive of active sepsis at this time highly suggestive of neuroleptic malignant syndrome. Differential diagnoses include malignant catatonia. Patient does have clinical features suggestive of malignant catatonia but this seems less likely. He does have a significant prodrome for few weeks but his laboratory features and clinical features highly suggestive of neuroleptic malignant syndrome. Serotonin syndrome is less likely as he does not have any hyperreflexia. No myoclonus noted when I saw him. No clinical evidence suggestive of active sepsis-like pneumonia etc. Patient does have urinary tract infection for which she is on appropriate antibiotics. No clinical evidence suggestive of hyperthyroidism but this needs to be ruled out. Significant dystonic reaction probably from Haldol as well now appropriately treated with benzoyl troponin Benadryl Mild chronic kidney disease with previous BPH status post suprapubic catheter Hypertension, hypothyroidism, GERD, previous REM related the year disorder, mild anxiety and depression which is stable RECOMMENDATION Continue to monitor in the ICU IV fluids with D5 half-normal saline Lorazepam 1-2 mg IV every 4 hours as needed *Dantrolene with 2 mg per KG intravenously and continue at 1 mg per KG every 6 hours for a few doses up to a maximum cumulative dose of 10 mg per KG per day. Check his blood work regularly, follow LFTs as dantrolene can cause LFT abnormality Keep his head of bed elevated Subcutaneous heparin Proton pump inhibitor We will consider putting in an NG tube later on when he stable Panculture We'll consider other therapy later Neurology to follow Keep him nothing by mouth for now Switch him to a different antibiotic. Do not use ciprofloxacin patient probably can benefit from Unasyn for a Citrobacter as this bacteria is sensitive to it Patient is critically ill total time spent 40 minutes Consult Acknowledgment - Thank you for your consult request.
[2017-08-06] VITALS: BP 140/80
[2017-08-06 03:36] LABS: ABSOLUTE BASOPHIL COUNT 0 /CUMM (0.0-0.2); ABSOLUTE EOSINOPHIL COUNT 0.1 /CUMM (0.0-0.7); ABSOLUTE LYMPH COUNT 0.4 /CUMM (1.2-3.4); ABSOLUTE MONOCYTE COUNT 0.5 /CUMM (0.10-0.60); BASOPHIL % 0.1 % (0.0-2.0); EOSINOPHIL % 1.9 % (0-5); HEMATOCRIT 31.6 % (42-52); MEAN CORPUSCULAR HGB 31.3 PG (27.0-31.0); MEAN CORPUSCULAR HGB CONC 33.4 G/DL (33.0-37.0); MEAN CORPUSCULAR VOLUME 93.6 FL (80.0-94.0); MEAN PLATELET VOLUME 6.7 FL (7.4-10.4); PLATELET COUNT 256 /CUMM (130-400); RBC DISTRIBUTION WIDTH 13.1 % (11.5-14.5); RED BLOOD CELL CT 3.37 /CUMM (4.70-6.10)
--- NOTE | 2017-08-06 07:28 | PN- Resident CRCU ---
Subjective HPI/CRCU Issues: Patient seen and examined, he is not responsive to verbal stimuli, and he is on the cool blankets. No spontaneous tremors seen but when try to move the hand to assess for rigidity he started to have brief shakiness. Vitals is pertienent to hyperthermia, other vitals stable 24 Hour Events: persistent hyperthermia Objective Vital Signs & I&O Last 8 Hrs of Vitals and I&O: Persistent hyperthermia Exam General Appearance: lethargic Head: atraumatic Neck: normal inspection, supple Respiratory: normal breath sounds, chest non-tender Cardiovascular: regular rate/rhythm, normal peripheral pulses Gastrointestinal: normal bowel sounds, soft, non-tender Extremities: no edema IV (Peripheral) Still Needed? Yes Nutrition Nutrition: NPO Current Medications: Current Medications Sig/Shaista Start time Last Medication Dose Route Stop Time Status Admin Acetaminophen 1,000 MG ONCE ONE 08/06 0630 DC 08/06 N/A 1 UNIT IV 08/06 0644 0621 Acetaminophen 1,000 MG ONCE ONE 08/06 0130 DC 08/06 N/A 1 UNIT IV 08/06 0144 0128 Acetaminophen 1,000 MG ONCE ONE 08/05 1900 DC 08/05 N/A 1 UNIT IV 08/05 1914 1911 Acetaminophen 325 MG Q6 PRN 08/03 0330 DC PO Aspirin Buffered 81 MG DAILY 08/03 09 AC 08/05 PO 0745 Atorvastatin Calcium 20 MG 1700 08/03 1700 AC 08/05 PO 1625 Benztropine Mesylate 1 MG ONCE PRN 08/05 1600 AC 08/05 IV 1622 Citalopram 20 MG DAILY 08/03 09 AC 08/05 Hydrobromide PO 0745 Dantrolene Sodium 9 ERNESTINA ONCE ONE 08/05 2200 CAN IV 08/05 2201 Dextrose/Sodium 1,000 ML Q8H 08/05 1930 AC 08/06 Chloride IV 0429 Diphenhydramine HCl 50 MG ONCE ONE 08/05 1830 DC 08/05 IV 08/05 1831 1827 Diphenhydramine HCl 50 MG ONCE ONE 08/05 1515 DC / IV 08/05 1516 1514 Fenofibrate 48 MG DAILY 08/03 899 AC 05 PO 0746 Haloperidol 1 MG BID PRN 08/05 0900 DC 08/05 PO 1332 Heparin Sodium 5,000 UNIT Q8 08/03 06 AC 08/06 (Porcine) MA 0524 Lactobacillus 1 CAP BID 08/04 2100 AC 08/05 Acidophilus PO 0746 Levothyroxine Sodium 0.025 MG DAILY AC 08/03 699 AC 08/05 PO 0654 Lorazepam 1 MG ONE ONE 08/06 0630 DC 08/06 IV 08/06 0631 0632 Lorazepam 2 MG ONCE ONE 08/05 2029 DC 08/05 IV 08/05 Lorazepam 1 MG Q4P PRN 08/05 2030 AC 08/06 IV 0621 Magnesium Sulfate 1 GM ONCE ONE 08/05 2315 DC 08/05 Dextrose/Water 100 ML IV 08/06 0314 2315 Melatonin 3 MG QPM 08/03 2099 AC 08/04 PO 2017 Meropenem 1 GM IQ8 08/06 0015 DC 08/06 IV 0802 Metoprolol Tartrate 50 MG DAILY 08/03 899 AC 08/05 PO 0746 Non-Formulary 0 SEE ADMIN CRITERIA 08/06 1000 UNVr Medication ANY Non-Formulary 0 SEE ADMIN CRITERIA 08/06 1000 UNVr Medication ANY Omeprazole 20 MG DAILY AC 08/03 699 AC 08/05 PO 0654 Quetiapine Fumarate 25 MG ONCE ONE 08/06 1999 DC PO 08/05 2000 Senna/Docusate Sodium 1 TAB BID PRN 08/05 0845 AC 08/05 PO 0935 Sodium Chloride 1,000 ML Q13H 08/03 0430 DC 08/05 IV 0752 Tamsulosin HCl 0.4 MG DAILY 08/03 09 AC 05 PO 0745 Trimethoprim/ 1 TAB BID 08/04 2099 DC 08/[address] Scan Findings: Head CT: No acute intracranial pathology. Impression/Plan Impression/Problem List Impression: 77 yo M with pmh of HTN, HLD, hypothyroidism, COPD, depression is here for worsening confusion that initially started after "few (?2-3)" days after his recent TURP procedure. He was initially at general medicine floor managed for catheter associated UTI, acute delirium, AKA. Yesterday, patient started to have abnormal jerky movements, in the setting of acute delirium and he has just received oral Haloperidol 1 mg today, about an hour ago. He had received 12.5 mg of Seroquel last night for the same. He was sent to ICU for concern of neuroleptic malignant syndrome. Problem List: 1. UTI (urinary tract infection) Pain Ratin Tomorrow's Labs & Rationales: icu lab bundle Plan Respiratory: * He is saturating 99% on 3 L nasal cannula * We'll repeat chest x-ray today per ID recommendation to rule out aspiration pneumonia * Elevated the head of the bed to avoid aspiration Infectious Diseases: * He was treated for positive urine culture at July 29 for Acinetobacter with Bactrim however secondary to altered mental status and lethargy Bactrim couldn't be given yesterday so he was switched to meropenem overnight given that he has penicillin allergy. * His most recent urine culture is still pending however he has negative urine culture at August 02, he doesn't have leukocytosis, meropenem discontinued. ID agreed with the above * Will follow-up his culture which was sent yesterday which include urine culture, blood culture 2. * Urology to follow up regarding suprapubic catheter Cardiovascular: * Closely monitor his blood pressure and heart rate as most of the patient who has NMS will have labile autonomic response * Hematology: * H&H is stable Metabolic: NMS: * IV fluids with D5 half-normal saline * Lorazepam 1-2 mg IV every 4 hours as needed * Dantrolene with 2 mg per KG intravenously and continue at 1 mg per KG every 6 hours for a few doses up to a maximum cumulative dose of 10 mg per KG per day. * Check his blood work regularly, follow LFTs as dantrolene can cause LFT abnormality * Proton pump inhibitor Alimentary: * PPI * Neurological: * Neurology to follow-up * Head CT today with no acute abnormalities DVT/Prophylaxis: mechanical, pharmacological Code Status: Do Not Resucitate/Intubat
[2017-08-06 08:00] VITALS: BP 148/80
--- NOTE | 2017-08-06 08:57 | PN- CRCU ---
See Addendum Subjective HPI/Critical Care Issues: Appears slightly clinically better Continues to be significantly febrile Did receive Ativan with gentle snoring noted No other history could be obtained as he was somnolent and unresponsive Vital signs reviewed MAXIMUM TEMPERATURE 103 O2 sat 99% on 3 L Pulse is now 66 respiratory rate [address] pending Blood work reviewed from this morning is noted creatinine is 1.1 anion gap is normal CPK was elevated yesterday white count is now 6 hemoglobin 10.5 Last INR was 1.37 previous urine analysis and culture did grow Citrobacter Previous CT scan of the abdomen upon admission showed the pericystic edema and stranding consistent with significant cystitis, 2 cm exophytic mass in the left kidney markedly enlarged and heterogenous prostate small hiatal hernia Objective Current Medications: Current Medications Sig/Shaista Start time Last Medication Dose Route Stop Time Status Admin Acetaminophen 1,000 MG ONCE ONE 08/06 0630 DC 08/06 N/A 1 UNIT IV 08/06 0644 0621 Acetaminophen 1,000 MG ONCE ONE 08/06 0130 DC 08/06 N/A 1 UNIT IV 08/06 0144 0128 Acetaminophen 1,000 MG ONCE ONE 08/05 1900 DC 08/05 N/A 1 UNIT IV 08/05 1914 1911 Acetaminophen 325 MG Q6 PRN 08/03 0330 DC PO Aspirin Buffered 81 MG DAILY 08/03 899 AC 08/05 PO 0745 Atorvastatin Calcium 20 MG 1700 / 1700 AC 05 PO 1625 Benztropine Mesylate 1 MG ONCE PRN 08/05 1600 AC 08/05 IV 1622 Citalopram 20 MG DAILY 08/03 09 AC 08/05 Hydrobromide PO 0745 Dantrolene Sodium 9 ERNESTINA ONCE ONE 08/05 2200 CAN IV 08/05 2201 Dextrose/Sodium 1,000 ML Q8H 08/05 1930 AC 08/06 Chloride IV 0429 Diphenhydramine HCl 50 MG ONCE ONE 08/05 1830 DC 08/05 IV 08/05 1831 1827 Diphenhydramine HCl 50 MG ONCE ONE 08/05 1515 DC 08/05 IV 08/05 1516 1514 Fenofibrate 48 MG DAILY 08/03 899 AC 08/05 PO 0746 Haloperidol 1 MG BID PRN 08/05 0900 DC 08/05 PO 1332 Heparin Sodium 5,000 UNIT Q8 08/03 599 AC 08/06 (Porcine) SC 0524 Lactobacillus 1 CAP BID 08/04 2100 AC 08/05 Acidophilus PO 0746 Levothyroxine Sodium 0.025 MG DAILY AC 08/03 0700 AC 08/05 PO 0654 Lorazepam 1 MG ONE ONE 08/06 0630 DC 08/06 IV 08/06 0631 0632 Lorazepam 2 MG ONCE ONE 08/05 2030 DC 08/05 IV 08/05 Lorazepam 1 MG Q4P PRN 08/05 2030 AC 08/06 IV 0621 Magnesium Sulfate 1 GM ONCE ONE 08/05 2315 DC 08/05 Dextrose/Water 100 ML IV 08/06 0314 2315 Melatonin 3 MG QPM 08/03 2100 AC 08/04 PO 2017 Meropenem 1 GM IQ8 08/06 0015 AC 08/06 IV 0802 Metoprolol Tartrate 50 MG DAILY 08/03 899 AC 08/05 PO 0746 Omeprazole 20 MG DAILY AC 08/03 07 AC 08/05 PO 0654 Quetiapine Fumarate 25 MG ONCE ONE 08/06 1999 DC PO 08/05 2000 Senna/Docusate Sodium 1 TAB BID PRN 08/05 0845 AC 08/05 PO 0935 Sodium Chloride 1,000 ML Q13H 08/03 0430 DC 08/05 IV 0752 Tamsulosin HCl 0.4 MG DAILY 08/03 09 AC 08/05 PO 0745 Trimethoprim/ 1 TAB BID 08/04 2100 DC 08/05 Sulfamethoxazole PO 0745 Vital Signs & I&O Last 24 Hrs of Vitals and I&O: Vital Signs Date Time Temp Pulse Resp B/P B/P Pulse O2 O2 Flow FiO2 Mean Ox Delivery Rate 08/06 0701 103.0 08/06 0621 101.5 08/06 0400 99 Nasal 3.0L Cannula 08/06 0226 100.0 08/06 0128 100.3 08/06 0000 97 Nasal 2.0L Cannula 08/06 0000 99.8 66 20 140/80 97 Nasal 2.0L Cannula 08/06 1999 102.3 08/06 1999 95 Nasal 2.0L Cannula 08/05 191 103.2 08/05 185 103.2 86 20 190/94 90 Nasal 2.0L Cannula 08/05 1516 98.3 78 22 172/84 94 Room Air Intake & Output 08/06 1600 08/06 0800 08/06 0000 Intake Total 1112 500 Output Total 300 300 Balance 812 200 Intake, IV 1112 500 Intake, Oral 0 Number 0 0 Bowel Movements Output, Urine 300 300 Laboratory Tests 08/06 08/06 0600 0316 Chemistry Sodium (137 - 145 mmol/L) Cancelled 143 Potassium (3.5 - 5.1 mmol/L) Cancelled 4.1 Chloride (98 - 107 mmol/L) Cancelled 111 H Carbon Dioxide (22 - 30 mmol/L) Cancelled 23 Anion Gap (5 - 16) Cancelled 9 BUN (9 - 20 mg/dL) Cancelled 22 H Creatinine (0.7 - 1.2 mg/dL) Cancelled 1.1 Estimated GFR (>60 ml/min) > 60 BUN/Creatinine Ratio Cancelled Glucose (65 - 99 mg/dL) 108 H Calcium (8.4 - 10.2 mg/dL) 8.7 Phosphorus (2.5 - 4.5 mg/dL) 3.2 Magnesium (1.6 - 2.3 mg/dL) 1.9 Total Bilirubin (0.2 - 1.3 mg/dL) 0.7 AST (17 - 59 U/L) 52 ALT (21 - 72 U/L) 35 Troponin I (<0.11 ng/ml) 0.02 Albumin (3.5 - 5.0 g/dL) 2.9 L Coagulation PT (9.4 - 12.5 SEC) 15.0 H INR (0.90 - 1.17) 1.37 H Hematology CBC w Diff Cancelled MAN DIFF ORDERED WBC (4.8 - 10.8 /CUMM) Cancelled 6.0 RBC (4.70 - 6.10 /CUMM) Cancelled 3.37 L Hgb (14.0 - 18.0 G/DL) Cancelled 10.5 L Hct (42 - 52 %) Cancelled 31.6 L MCV (80.0 - 94.0 FL) Cancelled 93.6 MCH (27.0 - 31.0 PG) Cancelled 31.3 H MCHC (33.0 - 37.0 G/DL) Cancelled 33.4 RDW (11.5 - 14.5 %) Cancelled 13.1 Plt Count (130 - 400 /CUMM) Cancelled 256 MPV (7.4 - 10.4 FL) Cancelled 6.7 L Gran % (42.2 - 75.2 %) 84.0 H Lymphocytes % (20.5 - 51.1 %) 6.1 L Monocytes % (1.7 - 9.3 %) 7.9 Eosinophils % (0 - 5 %) 1.9 Basophils % (0.0 - 2.0 %) 0.1 Absolute Granulocytes (1.4 - 6.5 /CUMM) 5.0 Segmented Neutrophils (42.2 - 75.2 %) 77 H Absolute Lymphocytes (1.2 - 3.4 /CUMM) 0.4 L Lymphocytes (20.5 - 51.1 %) 10 L Monocytes (1.7 - 9.3 %) 5 Absolute Monocytes (0.10 - 0.60 /CUMM) 0.5 Eosinophils (0 - 5.0 %) 6 H Absolute Eosinophils (0.0 - 0.7 /CUMM) 0.1 Basophils (0.0 - 2.0 %) 2 Absolute Basophils (0.0 - 0.2 /CUMM) 0 Platelet Estimate (ADEQUATE) ADEQUATE Polychromasia 1+ Ovalocytes FEW [place] Cells RARE Other Body Source Fld Total RBCs Counted (%) 100 0508 05 1930 1929 Chemistry Sodium (137 - 145 mmol/L) 144 Potassium (3.5 - 5.1 mmol/L) 4.1 Chloride (98 - 107 mmol/L) 111 H Carbon Dioxide (22 - 30 mmol/L) 21 L Anion Gap (5 - 16) 11 BUN (9 - 20 mg/dL) 22 H Creatinine (0.7 - 1.2 mg/dL) 1.2 Estimated GFR (>60 ml/min) 59 L BUN/Creatinine Ratio (7 - 25 %) 18.3 Lactic Acid (0.7 - 2.1 mmol/L) 0.6 L Phosphorus (2.5 - 4.5 mg/dL) 2.4 L Magnesium (1.6 - 2.3 mg/dL) 1.6 Total Bilirubin (0.2 - 1.3 mg/dL) 0.7 Direct Bilirubin (< 0.4 mg/dL) 0.3 AST (17 - 59 U/L) 50 ALT (21 - 72 U/L) 36 Alkaline Phosphatase (< 127 U/L) 51 Creatine Kinase (55 - 170 U/L) 926 H Troponin I (<0.11 ng/ml) < 0.01 Total Protein (6.3 - 8.2 g/dL) 5.7 L Albumin (3.5 - 5.0 g/dL) 3.1 L Coagulation APTT Cancelled Hematology CBC w Diff NO MAN DIFF REQ WBC (4.8 - 10.8 /CUMM) 6.0 RBC (4.70 - 6.10 /CUMM) 3.39 L Hgb (14.0 - 18.0 G/DL) 10.7 L Hct (42 - 52 %) 31.7 L MCV (80.0 - 94.0 FL) 93.5 MCH (27.0 - 31.0 PG) 31.5 H MCHC (33.0 - 37.0 G/DL) 33.7 RDW (11.5 - 14.5 %) 12.8 Plt Count (130 - 400 /CUMM) 285 MPV (7.4 - 10.4 FL) 6.9 L Gran % (42.2 - 75.2 %) 82.7 H Lymphocytes % (20.5 - 51.1 %) 7.2 L Monocytes % (1.7 - 9.3 %) 7.8 Eosinophils % (0 - 5 %) 2.2 Basophils % (0.0 - 2.0 %) 0.1 Absolute Granulocytes (1.4 - 6.5 /CUMM) 5.0 Absolute Lymphocytes (1.2 - 3.4 /CUMM) 0.4 L Absolute Monocytes (0.10 - 0.60 /CUMM) 0.5 Absolute Eosinophils (0.0 - 0.7 /CUMM) 0.1 Absolute Basophils (0.0 - 0.2 /CUMM) 0 /08 0740 Chemistry Sodium (137 - 145 mmol/L) 146 H Potassium (3.5 - 5.1 mmol/L) 4.2 Chloride (98 - 107 mmol/L) 111 H Carbon Dioxide (22 - 30 mmol/L) 24 Anion Gap (5 - 16) 11 BUN (9 - 20 mg/dL) 22 H Creatinine (0.7 - 1.2 mg/dL) 1.2 Estimated GFR (>60 ml/min) 59 L BUN/Creatinine Ratio (7 - 25 %) 18.3 Hematology CBC w Diff NO MAN DIFF REQ WBC (4.8 - 10.8 /CUMM) 6.1 RBC (4.70 - 6.10 /CUMM) 3.45 L Hgb (14.0 - 18.0 G/DL) 10.9 L Hct (42 - 52 %) 31.9 L MCV (80.0 - 94.0 FL) 92.5 MCH (27.0 - 31.0 PG) 31.5 H MCHC (33.0 - 37.0 G/DL) 34.1 RDW (11.5 - 14.5 %) 12.8 Plt Count (130 - 400 /CUMM) 301 MPV (7.4 - 10.4 FL) 7.1 L Gran % (42.2 - 75.2 %) 75.6 H Lymphocytes % (20.5 - 51.1 %) 11.8 L Monocytes % (1.7 - 9.3 %) 8.7 Eosinophils % (0 - 5 %) 3.5 Basophils % (0.0 - 2.0 %) 0.4 Absolute Granulocytes (1.4 - 6.5 /CUMM) 4.6 Absolute Lymphocytes (1.2 - 3.4 /CUMM) 0.7 L Absolute Monocytes (0.10 - 0.60 /CUMM) 0.5 Absolute Eosinophils (0.0 - 0.7 /CUMM) 0.2 Absolute Basophils (0.0 - 0.2 /CUMM) 0 Microbiology Date/Time Procedure - Status Source Growth 08/06 433 Urine Culture - RECD URINE ROUT 08/05 2150 Blood Culture - CAN BLOOD Cancelled: Cancelled via OE: Per Decision 08/05 2150 Blood Culture - CAN BLOOD Cancelled: Cancelled via OE: Per Decision 08/05 1949 Surveillance Culture - RECD UPPER RESP 08/05 1949 Surveillance Culture - RECD GI 08/05 1934 Blood Culture - RECD BLOOD 08/05 1929 Blood Culture - RECD BLOOD Impression/Plan Impression/Plan Impression/Plan: Obtunded, not responsive, MAXIMUM TEMPERATURE 103, pupils were small reactive to light Neck was supple Or rigidity noted Significant myoclonic jerks and dystonic movements noted, much reduced since yesterday Chest decreased breath sounds on both sides Heart S1-S2 was heard mildly tachycardic Abdominal exam soft Extremity appeared rigid, neurological exam could not be appropriately performed. Reflexes were brisk but not significantly hyper No significant clonus noted IMPRESSION This is a gentleman with history of hypertension, hyperlipidemia, previous BPH, recent TURP and suprapubic catheter done on July 10, subsequently had a UTI for which he did receive Cipro. He was then subsequently admitted to this hospital with confusion and hallucinations which appeared to be most likely related to Cipro and infection-induced encephalopathy in a pt with prior memory dysfunction. Initial neurological exam by neuro md was reviewed and at that time he did not appear to have hyperreflexia clonus. Patient has been on Lexapro at home. Subsequently as he became more encephalopathic on the floor he was treated with Seroquel and subsequently Haldol as well. Subsequently develeoped significant elevated temperature 5/8 and had worsening mental status, significant dystonic reaction. Sub transfer to the ICU. When i saw him. His clinical symptoms and signs are highly suggestive of neuroleptic malignant syndrome Issues include Recent exposure to antipsychotic, significant hyperthermia, rigidity, altered mental status, significantly elevated CPK, hypertension, diaphoresis, tachycardia with no clinical evidence suggestive of active sepsis at this time highly suggestive of neuroleptic malignant syndrome. Differential diagnoses include malignant catatonia. Patient does have clinical features suggestive of malignant catatonia but this seems less likely. He does have a significant prodrome for few weeks but his laboratory features and clinical features highly suggestive of neuroleptic malignant syndrome. Serotonin syndrome is less likely as he does not have any hyperreflexia. No myoclonus noted. No clinical active sepsis. Patient does have urinary tract infection prob with prostatitis for which she is on appropriate antibiotics. No clinical evidence suggestive of hyperthyroidism but this needs to be ruled out. Significant dystonic reaction probably from Haldol as well now appropriately treated with benzotropin and Benadryl, initially now controlled by benzo Mild chronic kidney disease with previous BPH status post suprapubic catheter, with prob cystitis and prostatitis Hypertension, hypothyroidism, GERD, previous REM related disorder, memory loss mild prior to admission, and history sugg of mild anxiety and depression which is stable RECOMMENDATION Continue to monitor in the ICU IV fluids with D5 half-normal saline Lorazepam 1-2 mg IV every 4 hours as needed Start Dantrolene with 2 mg per KG intravenously and continue at 1 mg per KG every 6 hours for a few doses up to a maximum cumulative dose of 10 mg per KG per day. Start today Check his blood work regularly, follow LFTs as dantrolene can cause LFT abnormality Keep his head of bed elevated Subcutaneous heparin Proton pump inhibitor We will consider putting in an NG tube later on when he stable Panculture done We'll consider other therapy later Neurology to follow Keep him nothing by mouth for now Abx choice per ID Have psych and neuro and id to follow Patient is critically ill total time spent 39 minutes, discussed with patient's sig other Pt has a living will and family wished him to be dnr and dni
--- NOTE | 2017-08-06 09:32 | CT SCAN REPORT ---
EXAMINATION: CT HEAD WITHOUT CONTRAST CLINICAL INFORMATION: 77-year-old man with change in mental status. COMPARISON: 08/02/[address] TECHNIQUE: Contiguous axial imaging was performed from the skull base to vertex without intravenous administration of contrast. DLP: 791 mGy-cm FINDINGS: There is no evidence of acute intracranial hemorrhage or territorial infarction. No abnormal mass effect or midline shift is seen. Block to white matter differentiation is well preserved. No extra-axial fluid collections are identified. The ventricles are normal in size. Mild to moderate chronic microvascular ischemic changes are seen throughout the supratentorial white matter. The osseous structures and soft tissues are normal. The mastoid air cells and visualized portions of the paranasal sinuses are well aerated. IMPRESSION: No acute intracranial pathology.
--- NOTE | 2017-08-06 11:15 | PN- Infect Dx ---
Subjective Subjective: T-max 103.2. Recent events noted with increased dystonic movements, after receiving Haldol, associated with fever and decreased responsiveness, prompting transfer to the ICU. He was apparently begun on Meropenem empirically. He is unable to provide any history Objective Last 24 Hrs of Vital Signs/I&O Vital Signs Date Time Temp Pulse Resp B/P B/P Pulse O2 O2 Flow FiO2 Mean Ox Delivery Rate 08/06 700 103.0 08/06 0621 101.5 08/06 0400 99 Nasal 3.0L Cannula 08/06 0226 100.0 08/06 0128 100.3 08/06 0000 97 Nasal 2.0L Cannula 08/06 0000 99.8 66 20 140/80 97 Nasal 2.0L Cannula 08/06 1999 102.3 08/06 1999 95 Nasal 2.0L Cannula 08/05 1911 103.2 08/05 1853 103.2 86 20 190/94 90 Nasal 2.0L Cannula 08/05 1516 98.3 78 22 172/84 94 Room Air Intake & Output 08/06 1600 08/06 0800 08/06 0000 Intake Total 1112 500 Output Total 300 300 Balance 812 200 Intake, IV 1112 500 Intake, Oral 0 Number 0 0 Bowel Movements Output, Urine 300 300 Physical Exam Other Physical Findings: He is unresponsive to verbal stimuli and minimally responsive to pain, with some writhing about Lungs scattered rhonchi Heart regular rhythm with no murmur Abdomen is soft, with no obvious tenderness, positive bowel sounds; suprapubic tube in place, with clear urine Extremities no cyanosis, clubbing or edema Results Last 24 Hours of Lab Results: Laboratory Tests 08/06 08/06 0600 0316 Chemistry Sodium (137 - 145 mmol/L) Cancelled 143 Potassium (3.5 - 5.1 mmol/L) Cancelled 4.1 Chloride (98 - 107 mmol/L) Cancelled 111 H Carbon Dioxide (22 - 30 mmol/L) Cancelled 23 Anion Gap (5 - 16) Cancelled 9 BUN (9 - 20 mg/dL) Cancelled 22 H Creatinine (0.7 - 1.2 mg/dL) Cancelled 1.1 Estimated GFR (>60 ml/min) > 60 BUN/Creatinine Ratio Cancelled Glucose (65 - 99 mg/dL) 108 H Calcium (8.4 - 10.2 mg/dL) 8.7 Phosphorus (2.5 - 4.5 mg/dL) 3.2 Magnesium (1.6 - 2.3 mg/dL) 1.9 Total Bilirubin (0.2 - 1.3 mg/dL) 0.7 AST (17 - 59 U/L) 52 ALT (21 - 72 U/L) 35 Troponin I (<0.11 ng/ml) 0.02 Albumin (3.5 - 5.0 g/dL) 2.9 L Coagulation PT (9.4 - 12.5 SEC) 15.0 H INR (0.90 - 1.17) 1.37 H Hematology CBC w Diff Cancelled MAN DIFF ORDERED WBC (4.8 - 10.8 /CUMM) Cancelled 6.0 RBC (4.70 - 6.10 /CUMM) Cancelled 3.37 L Hgb (14.0 - 18.0 G/DL) Cancelled 10.5 L Hct (42 - 52 %) Cancelled 31.6 L MCV (80.0 - 94.0 FL) Cancelled 93.6 MCH (27.0 - 31.0 PG) Cancelled 31.3 H MCHC (33.0 - 37.0 G/DL) Cancelled 33.4 RDW (11.5 - 14.5 %) Cancelled 13.1 Plt Count (130 - 400 /CUMM) Cancelled 256 MPV (7.4 - 10.4 FL) Cancelled 6.7 L Gran % (42.2 - 75.2 %) 84.0 H Lymphocytes % (20.5 - 51.1 %) 6.1 L Monocytes % (1.7 - 9.3 %) 7.9 Eosinophils % (0 - 5 %) 1.9 Basophils % (0.0 - 2.0 %) 0.1 Absolute Granulocytes (1.4 - 6.5 /CUMM) 5.0 Segmented Neutrophils (42.2 - 75.2 %) 77 H Absolute Lymphocytes (1.2 - 3.4 /CUMM) 0.4 L Lymphocytes (20.5 - 51.1 %) 10 L Monocytes (1.7 - 9.3 %) 5 Absolute Monocytes (0.10 - 0.60 /CUMM) 0.5 Eosinophils (0 - 5.0 %) 6 H Absolute Eosinophils (0.0 - 0.7 /CUMM) 0.1 Basophils (0.0 - 2.0 %) 2 Absolute Basophils (0.0 - 0.2 /CUMM) 0 Platelet Estimate (ADEQUATE) ADEQUATE Polychromasia 1+ Ovalocytes FEW Robin Cells RARE Other Body Source Fld Total RBCs Counted (%) 100 08/05 Chemistry Sodium (137 - 145 mmol/L) 144 Potassium (3.5 - 5.1 mmol/L) 4.1 Chloride (98 - 107 mmol/L) 111 H Carbon Dioxide (22 - 30 mmol/L) 21 L Anion Gap (5 - 16) 11 BUN (9 - 20 mg/dL) 22 H Creatinine (0.7 - 1.2 mg/dL) 1.2 Estimated GFR (>60 ml/min) 59 L BUN/Creatinine Ratio (7 - 25 %) 18.3 Lactic Acid (0.7 - 2.1 mmol/L) 0.6 L Phosphorus (2.5 - 4.5 mg/dL) 2.4 L Magnesium (1.6 - 2.3 mg/dL) 1.6 Total Bilirubin (0.2 - 1.3 mg/dL) 0.7 Direct Bilirubin (< 0.4 mg/dL) 0.3 AST (17 - 59 U/L) 50 ALT (21 - 72 U/L) 36 Alkaline Phosphatase (< 127 U/L) 51 Creatine Kinase (55 - 170 U/L) 926 H Troponin I (<0.11 ng/ml) < 0.01 Total Protein (6.3 - 8.2 g/dL) 5.7 L Albumin (3.5 - 5.0 g/dL) 3.1 L Coagulation APTT Cancelled Hematology CBC w Diff NO MAN DIFF REQ WBC (4.8 - 10.8 /CUMM) 6.0 RBC (4.70 - 6.10 /CUMM) 3.39 L Hgb (14.0 - 18.0 G/DL) 10.7 L Hct (42 - 52 %) 31.7 L MCV (80.0 - 94.0 FL) 93.5 MCH (27.0 - 31.0 PG) 31.5 H MCHC (33.0 - 37.0 G/DL) 33.7 RDW (11.5 - 14.5 %) 12.8 Plt Count (130 - 400 /CUMM) 285 MPV (7.4 - 10.4 FL) 6.9 L Gran % (42.2 - 75.2 %) 82.7 H Lymphocytes % (20.5 - 51.1 %) 7.2 L Monocytes % (1.7 - 9.3 %) 7.8 Eosinophils % (0 - 5 %) 2.2 Basophils % (0.0 - 2.0 %) 0.1 Absolute Granulocytes (1.4 - 6.5 /CUMM) 5.0 Absolute Lymphocytes (1.2 - 3.4 /CUMM) 0.4 L Absolute Monocytes (0.10 - 0.60 /CUMM) 0.5 Absolute Eosinophils (0.0 - 0.7 /CUMM) 0.1 Absolute Basophils (0.0 - 0.2 /CUMM) 0 Last 24 Hours of Luis Alberto Results: Blood cultures August 03 negative Blood cultures August 05 negative Urine culture August 06 pending Recent Imaging Studies: CT of the head August 06 no acute process Assessment/Plan ID Impression: Deterioration in his status, with fevers, dystonia and decreased responsiveness, likely secondary to neuroleptic malignant syndrome secondary to the Haldol, with his CPK elevated. He is now on Meropenem, Day 6 of treatment for the Acinetobacter isolated from the urine culture sent 4 days prior to admission and , given the multiple adverse reactions he has had to medications, feel that, at this point, it would be best to follow him off antibiotics. He is requiring nasal oxygen and, given his altered mental status, feel that aspiration pneumonia should be ruled out. Suggestion: 1. Further management of possible neuroleptic malignant syndrome per the ICU team 2. Repeat chest x-ray 3. Urology follow-up regarding eventual removal of the suprapubic tube and further evaluation of the left renal mass 4. Discontinue Meropenem and follow off antibiotics
[2017-08-06 12:00] VITALS: BP 126/70
--- NOTE | 2017-08-06 14:44 | PN- Neurology ---
Subjective Subjective: Yesterday Dr. Eng was called in the evening for pt having sudden stiffness, myoclonus, shivers and fever after IM Haldol. Was therefore suspected NMS and started on Dantrolene. Doing better now. Review of Systems: none. Objective Vital Signs and I&Os Vital Signs Date Time Temp Pulse Resp B/P B/P Pulse O2 O2 Flow FiO2 Mean Ox Delivery Rate 08/06 1200 96 Nasal 3.0L Cannula 08/06 1200 98.6 71 20 126/70 97 Nasal 3.0L Cannula 08/06 0800 100.5 82 22 148/80 95 Nasal 3.0L Cannula 08/06 0800 95 Nasal 3.0L Cannula 08/06 0701 103.0 08/06 0621 101.5 08/06 0400 99 Nasal 3.0L Cannula 08/06 0226 100.0 08/06 0128 100.3 08/06 0000 97 Nasal 2.0L Cannula 08/06 0000 99.8 66 20 140/80 97 Nasal 2.0L Cannula 08/06 1999 102.3 08/06 1999 95 Nasal 2.0L Cannula 08/05 1911 103.2 08/05 1853 103.2 86 20 190/94 90 Nasal 2.0L Cannula 08/05 1516 98.3 78 22 172/84 94 Room Air Intake & Output 08/06 1600 08/06 0800 08/06 0000 08/05 1600 08/05 0800 05/ 0000 Intake Total 9252 340 6029 960 Output Total 300 601 055 3680 Balance 812 200 750 -1000 960 Intake, IV 1112 500 700 600 Intake, Oral 0 800 360 Number 0 0 Bowel Movements Output, Urine 300 146 267 0260 Physical Exam: Hypersomnolent but opens eyes Rigid with cogwheeling bilaterally Myoclonus/tremor for limbs Gurgling on secretions Stiff Current Medications: Current Medications Sig/Shaista Start time Last Medication Dose Route Stop Time Status Admin Acetaminophen 1,000 MG ONCE ONE 08/06 0630 DC 08/06 N/A 1 UNIT IV 08/06 0644 0621 Acetaminophen 1,000 MG ONCE ONE 08/06 0130 DC 08/06 N/A 1 UNIT IV 08/06 0144 0128 Acetaminophen 1,000 MG ONCE ONE 08/05 1900 DC 08/05 N/A 1 UNIT IV 08/05 191 1911 Acetaminophen 325 MG Q6 PRN 08/03 0330 DC PO Aspirin Buffered 81 MG DAILY 08/03 0900 AC 05 PO 0745 Atorvastatin Calcium 20 MG 1700 08/03 1700 AC 05 PO 1625 Benztropine Mesylate 1 MG ONCE PRN 08/05 1600 AC 08/05 IV 1622 Citalopram 20 MG DAILY 08/03 0900 AC 08/05 Hydrobromide PO 0745 Dantrolene Sodium 180 MG ONCE ONE 08/06 1145 DC 08/06 N/A 1 UNIT IV 08/06 1249 1213 Dantrolene Sodium 9 ERNESTINA ONCE ONE 08/05 2200 CAN IV 08/05 2201 Dextrose/Sodium 1,000 ML Q8H 08/05 1930 AC 08/06 Chloride IV 1415 Diphenhydramine HCl 50 MG ONCE ONE 08/05 1830 DC 08/05 IV 08/05 1831 1827 Diphenhydramine HCl 50 MG ONCE ONE 08/05 1515 DC / IV 08/05 1516 1514 Fenofibrate 48 MG DAILY 08/03 09 AC 08/05 PO 0746 Haloperidol 1 MG BID PRN 08/05 0900 DC 08/05 PO 1332 Heparin Sodium 5,000 UNIT Q8 08/03 06 AC 08/06 (Porcine) SC 1415 Lactobacillus 1 CAP BID 08/04 2100 AC 08/05 Acidophilus PO 0746 Levothyroxine Sodium 0.025 MG DAILY AC 08/03 0700 AC 08/05 PO 0654 Lorazepam 1 MG ONE ONE 08/06 0630 DC 08/06 IV 08/06 0631 0632 Lorazepam 2 MG ONCE ONE 08/05 2029 DC 08/05 IV 08/05 2030 202 Lorazepam 1 MG Q4P PRN 08/05 2030 AC 08/06 IV 0621 Magnesium Sulfate 1 GM ONCE ONE 08/05 2315 DC 08/05 Dextrose/Water 100 ML IV 08/06 0314 2315 Melatonin 3 MG QPM 08/03 2100 AC 08/04 PO 2017 Meropenem 1 GM IQ8 08/06 0015 DC 05 IV 0802 Metoprolol Tartrate 50 MG DAILY 08/03 899 AC 08/05 PO 0746 Non-Formulary 0 SEE ADMIN CRITERIA 08/06 1000 DC Medication ANY Non-Formulary 0 SEE ADMIN CRITERIA 08/06 1000 UNVr Medication ANY Omeprazole 20 MG DAILY AC 08/03 699 AC 08/05 PO 0654 Quetiapine Fumarate 25 MG ONCE ONE 08/06 1999 DC PO 08/05 2000 Senna/Docusate Sodium 1 TAB BID PRN 08/05 844 AC 08/05 PO 09 Sodium Chloride 1,000 ML Q13H 08/03 0430 DC 08/05 IV 0752 Tamsulosin HCl 0.4 MG DAILY 08/03 899 AC 08/05 PO 0745 Trimethoprim/ 1 TAB BID 08/04 2099 DC 08/05 Sulfamethoxazole PO 744 Results Last 24 Hours of Lab Results: Laboratory Tests 08/06 0316 Chemistry Sodium (137 - 145 mmol/L) Cancelled 143 Potassium (3.5 - 5.1 mmol/L) Cancelled 4.1 Chloride (98 - 107 mmol/L) Cancelled 111 H Carbon Dioxide (22 - 30 mmol/L) Cancelled 23 Anion Gap (5 - 16) Cancelled 9 BUN (9 - 20 mg/dL) Cancelled 22 H Creatinine (0.7 - 1.2 mg/dL) Cancelled 1.1 Estimated GFR (>60 ml/min) > 60 BUN/Creatinine Ratio Cancelled Glucose (65 - 99 mg/dL) 108 H Calcium (8.4 - 10.2 mg/dL) 8.7 Phosphorus (2.5 - 4.5 mg/dL) 3.2 Magnesium (1.6 - 2.3 mg/dL) 1.9 Total Bilirubin (0.2 - 1.3 mg/dL) 0.7 AST (17 - 59 U/L) 52 ALT (21 - 72 U/L) 35 Creatine Kinase (55 - 170 U/L) 780 H Troponin I (<0.11 ng/ml) 0.02 Albumin (3.5 - 5.0 g/dL) 2.9 L Coagulation PT (9.4 - 12.5 SEC) 15.0 H INR (0.90 - 1.17) 1.37 H Hematology CBC w Diff Cancelled MAN DIFF ORDERED WBC (4.8 - 10.8 /CUMM) Cancelled 6.0 RBC (4.70 - 6.10 /CUMM) Cancelled 3.37 L Hgb (14.0 - 18.0 G/DL) Cancelled 10.5 L Hct (42 - 52 %) Cancelled 31.6 L MCV (80.0 - 94.0 FL) Cancelled 93.6 MCH (27.0 - 31.0 PG) Cancelled 31.3 H MCHC (33.0 - 37.0 G/DL) Cancelled 33.4 RDW (11.5 - 14.5 %) Cancelled 13.1 Plt Count (130 - 400 /CUMM) Cancelled 256 MPV (7.4 - 10.4 FL) Cancelled 6.7 L Gran % (42.2 - 75.2 %) 84.0 H Lymphocytes % (20.5 - 51.1 %) 6.1 L Monocytes % (1.7 - 9.3 %) 7.9 Eosinophils % (0 - 5 %) 1.9 Basophils % (0.0 - 2.0 %) 0.1 Absolute Granulocytes (1.4 - 6.5 /CUMM) 5.0 Segmented Neutrophils (42.2 - 75.2 %) 77 H Absolute Lymphocytes (1.2 - 3.4 /CUMM) 0.4 L Lymphocytes (20.5 - 51.1 %) 10 L Monocytes (1.7 - 9.3 %) 5 Absolute Monocytes (0.10 - 0.60 /CUMM) 0.5 Eosinophils (0 - 5.0 %) 6 H Absolute Eosinophils (0.0 - 0.7 /CUMM) 0.1 Basophils (0.0 - 2.0 %) 2 Absolute Basophils (0.0 - 0.2 /CUMM) 0 Platelet Estimate (ADEQUATE) ADEQUATE Polychromasia 1+ Ovalocytes FEW Presto Cells RARE Other Body Source Fld Total RBCs Counted (%) 100 08 08/05 193 192 Chemistry Sodium (137 - 145 mmol/L) 144 Potassium (3.5 - 5.1 mmol/L) 4.1 Chloride (98 - 107 mmol/L) 111 H Carbon Dioxide (22 - 30 mmol/L) 21 L Anion Gap (5 - 16) 11 BUN (9 - 20 mg/dL) 22 H Creatinine (0.7 - 1.2 mg/dL) 1.2 Estimated GFR (>60 ml/min) 59 L BUN/Creatinine Ratio (7 - 25 %) 18.3 Lactic Acid (0.7 - 2.1 mmol/L) 0.6 L Phosphorus (2.5 - 4.5 mg/dL) 2.4 L Magnesium (1.6 - 2.3 mg/dL) 1.6 Total Bilirubin (0.2 - 1.3 mg/dL) 0.7 Direct Bilirubin (< 0.4 mg/dL) 0.3 AST (17 - 59 U/L) 50 ALT (21 - 72 U/L) 36 Alkaline Phosphatase (< 127 U/L) 51 Creatine Kinase (55 - 170 U/L) 926 H Troponin I (<0.11 ng/ml) < 0.01 Total Protein (6.3 - 8.2 g/dL) 5.7 L Albumin (3.5 - 5.0 g/dL) 3.1 L Coagulation APTT Cancelled Hematology CBC w Diff NO MAN DIFF REQ WBC (4.8 - 10.8 /CUMM) 6.0 RBC (4.70 - 6.10 /CUMM) 3.39 L Hgb (14.0 - 18.0 G/DL) 10.7 L Hct (42 - 52 %) 31.7 L MCV (80.0 - 94.0 FL) 93.5 MCH (27.0 - 31.0 PG) 31.5 H MCHC (33.0 - 37.0 G/DL) 33.7 RDW (11.5 - 14.5 %) 12.8 Plt Count (130 - 400 /CUMM) 285 MPV (7.4 - 10.4 FL) 6.9 L Gran % (42.2 - 75.2 %) 82.7 H Lymphocytes % (20.5 - 51.1 %) 7.2 L Monocytes % (1.7 - 9.3 %) 7.8 Eosinophils % (0 - 5 %) 2.2 Basophils % (0.0 - 2.0 %) 0.1 Absolute Granulocytes (1.4 - 6.5 /CUMM) 5.0 Absolute Lymphocytes (1.2 - 3.4 /CUMM) 0.4 L Absolute Monocytes (0.10 - 0.60 /CUMM) 0.5 Absolute Eosinophils (0.0 - 0.7 /CUMM) 0.1 Absolute Basophils (0.0 - 0.2 /CUMM) 0 Assessment/Plan Assessment: Neuroleptic Malignant Syndrome Plan: C/w Dantorlete. EEG
--- NOTE | 2017-08-06 15:33 | RADIOLOGY REPORT ---
EXAMINATION: XR PORTABLE CHEST CLINICAL INFORMATION: Hypothermia. Acute mental status change. COMPARISON: Chest x-ray dated 08/02/2017. TECHNIQUE: Portable AP semierect view of the chest was obtained. FINDINGS: EKG leads overlie the chest. Cardiomediastinal silhouette is enlarged. Low lung volumes are seen with crowding of bronchovascular lung markings. There is likely mild central vascular congestion. No overt pulmonary edema, focal consolidation or effusion is seen. Bony structures are unremarkable. Left humeral head anchor is partially obscured by overlying markers. IMPRESSION: 1. Low lung volumes. 2. Central vascular congestion. No overt pulmonary edema or focal pulmonary process.
[2017-08-06 16:00] VITALS: BP 154/70
--- NOTE | 2017-08-06 16:50 | Cons- Psychiatry ---
Psychiatric Consult Date of Consult: 08/06/17 Reason for Consult: med management for combativeness in delirium complicated by nms Allergies: Coded Allergies: haloperidol (From HALDOL) (Severe, TONIC REACTION 08/05/17) Penicillins (UNKNOWN 07/10/17) venom-honey bee (UNKNOWN 07/10/17) Past History Past Medical History Neurological: NONE EENT: NONE Cardiovascular: hypertension Respiratory: COPD Gastrointestinal: constipation Hepatic: NONE Renal: NONE Psychiatric: anxiety, depression Endocrine: hypothyroidism Blood Disorders: NONE Cancer(s): NONE AD[employer] INSPECTOR/Reproductive: BPH TURP Past Surgical History Surgical History: TURP bilateral rotator cuff repair Assessment/Plan Impression: I wrote this note under the wrong handle I will have IT fix in am. Note as follows: Pt seen at 2:00. Rory is a 77 y/o male who presented with confusion in the context of recent TURP, cipro tx, anticholinergic meds. He has been been persistently delirious since admission. He was seen by neurology who recommended low dose seroquel to which he did not respond. Pt also received a 1 mg dose of haldol and seemed to become dystonic. Medicine administered benadryl and he continued to display rigidity then developed fever to 102, rigors and CPK of 926. Pt was transferred to ICU. Neuro was again consulted and on exam pt found to have hypersomnolence, tremor, rigidity and cogwheeling and gave diagnosis of nms. I was consulted to give medication recs for possible combativeness. Pt is unable to give the rest of his history. I noted the essentially same exam as above. Of note pt received dantrolene. MSE: Pt is in bed with nurses receiving mouthcare. He is hypersomnolent and unarousable to voice. He is tremoring and rigid. He is unable to speak with me for rest of MSE. A/ 77 y/o M with delirium complicated by NMS after a dose of haldol. -Stop ativan and would not give benzodiazepines -Stop ALL antipsychotic medications, 1st and 2nd generation. -For behavioral dysregulation, given he is gurgling on secretions, I would use IV depakote (Depakon) 250 mg TID in the context of normal LFTs and platelets; please obtain a level in nine doses in the am before morning dose -If he can safely and reliably take PO meds you can use trazodone 25 mg BID-TID instead. Please first assure his QTc is wnl. Please call psych crisis O/N with any questions. JScruggs #[phone]
[2017-08-06 23:00] VITALS: BP 160/90
[2017-08-07 04:00] VITALS: BP 150/80
[2017-08-07 04:35] LABS: ABSOLUTE BASOPHIL COUNT 0 /CUMM (0.0-0.2); ABSOLUTE EOSINOPHIL COUNT 0.3 /CUMM (0.0-0.7); ABSOLUTE LYMPH COUNT 0.6 /CUMM (1.2-3.4); ABSOLUTE MONOCYTE COUNT 0.7 /CUMM (0.10-0.60); BASOPHIL % 0.3 % (0.0-2.0); EOSINOPHIL % 4.9 % (0-5); GRANULOCYTE % 75.2 % (42.2-75.2); HEMATOCRIT 33.7 % (42-52); MEAN CORPUSCULAR HGB 31.2 PG (27.0-31.0); MEAN CORPUSCULAR HGB CONC 33.2 G/DL (33.0-37.0); MEAN CORPUSCULAR VOLUME 93.8 FL (80.0-94.0); MEAN PLATELET VOLUME 7.1 FL (7.4-10.4); PLATELET COUNT 241 /CUMM (130-400); RBC DISTRIBUTION WIDTH 13.4 % (11.5-14.5); RED BLOOD CELL CT 3.59 /CUMM (4.70-6.10); WHITE BLOOD CELL COUNT 6.6 /CUMM (4.8-10.8)
[2017-08-07 04:42] LABS: PTT 29 SEC (25-37)
[2017-08-07 08:00] VITALS: BP 160/90
--- NOTE | 2017-08-07 08:49 | PN- Resident CRCU ---
Subjective HPI/CRCU Issues: Patient seen and examined, he is more arousable today, answering questions. Tmax overnight 101.8, other vitals stable except for slight elevated BP. 24 Hour Events: No events Objective Vital Signs & I&O Last 8 Hrs of Vitals and I&O: Tmax 100.5, Pulse 84, BP 146/70, On 3L NC sat 97% Exam General Appearance: well developed/nourished, no apparent distress, alert, lethargic Head: atraumatic Respiratory: normal breath sounds, chest non-tender, no respiratory distress Cardiovascular: regular rate/rhythm, normal peripheral pulses Gastrointestinal: normal bowel sounds, soft, non-tender Extremities: normal capillary refill, no edema Nutrition Nutrition: NPO Current Medications: Current Medications Sig/Shaista Start time Last Medication Dose Route Stop Time Status Admin Acetaminophen 1,000 MG Q6P PRN 08/06 1545 AC 08/07 N/A 1 UNIT IV 0621 Aspirin Buffered 81 MG DAILY 08/03 899 AC 08/07 PO 0917 Atorvastatin Calcium 20 MG 1700 08/03 1700 AC 08/05 PO 1625 Benztropine Mesylate 1 MG ONCE PRN 08/05 1600 AC 08/05 IV 1622 Bisacodyl 10 MG .STK-MED ONE 08/06 1849 DC CA 08/06 1850 Citalopram 20 MG DAILY 08/03 09 DC 08/05 Hydrobromide PO 0745 Dantrolene Sodium 100 MG Q6H 08/07 1300 AC PO Dantrolene Sodium 80 MG Q6H 08/06 1900 DC 08/07 N/A 1 UNIT IV 08/07 0728 0658 Dantrolene Sodium 180 MG ONCE ONE 08/06 1145 DC 08/06 N/A 1 UNIT IV / 1249 1213 Dextrose/Sodium 1,000 ML Q8H 08/05 1930 AC 08/07 Chloride IV 0915 Fenofibrate 48 MG DAILY 08/03 09 AC 08/07 PO 0916 Heparin Sodium 5,000 UNIT Q8 08/03 0600 AC 08/07 (Porcine) SC 0542 Hydralazine HCl 5 MG ONCE ONE 08/07 0130 DC 05 IV 08/07 0131 0140 Lactobacillus 1 CAP BID 08/04 2100 AC 08/07 Acidophilus PO 0916 Levothyroxine Sodium 0.025 MG DAILY AC 08/03 699 AC 08/07 PO 915 Lorazepam 1 MG Q4P PRN 08/05 2030 DC 08/06 IV 0621 Melatonin 3 MG QPM 08/03 2100 AC 08/04 PO 2016 Metoprolol Tartrate 50 MG DAILY 08/03 899 AC 08/07 PO 916 Non-Formulary 0 SEE ADMIN CRITERIA 08/06 1000 DC Medication ANY Non-Formulary 0 SEE ADMIN CRITERIA 08/06 1000 DC Medication ANY Omeprazole 20 MG DAILY AC 08/03 699 AC 08/07 PO 915 Senna/Docusate Sodium 1 TAB BID PRN 08/05 0845 AC 08/07 PO 915 Tamsulosin HCl 0.4 MG DAILY 08/03 899 AC 08/07 PO 916 Valproate Sodium 250 MG TID 08/07 0100 AC 08/07 Sodium Chloride 50 ML IV 0135 Antibiotics Antibiotics? none Results Results: Blood Cx X2 @ 08/05/2017 is negative CXR Findings: IMPRESSION: 1. Low lung volumes. 2. Central vascular congestion. No overt pulmonary edema or focal pulmonary process. Impression/Plan Impression/Problem List Impression: 77 yo M with pmh of HTN, HLD, hypothyroidism, COPD, depression is here for worsening confusion that initially started after "few (?2-3)" days after his recent TURP procedure. He was initially at general medicine floor managed for catheter associated UTI, acute delirium, AKA. Yesterday, patient started to have abnormal jerky movements, in the setting of acute delirium and he has just received oral Haloperidol 1 mg today, about an hour ago. He had received 12.5 mg of Seroquel last night for the same. He was sent to ICU for concern of neuroleptic malignant syndrome. Problem List: 1. Neuroleptic malignant syndrome Pain Ratin Tomorrow's Labs & Rationales: ICU lab bundles Plan Respiratory: * He is saturating 99% on 3 L nasal cannula * Elevated the head of the bed to avoid aspiration Infectious Diseases: * He was treated for positive urine culture at July 29 for Acinetobacter with Bactrim for 5 days, now we are watching him off antibiotic * His most recent urine culture is still pending however he has negative urine culture at August 02, he doesn't have leukocytosis, meropenem discontinued. ID agreed with the above * Blood cultures x2 at 08/05/2017 is negative so far * Urology to follow up regarding suprapubic catheter Cardiovascular: * Closely monitor his blood pressure and heart rate as most of the patient who has NMS will have labile autonomic response * With neuroleptic malignant syndrome, he will have autonomic dysfunction. watch his vitals closely especially BP. He was noted to have elevated BP overnight, we are not managing that to avoid hypotension. Hematology: * H&H is stable Metabolic: NMS: * IV fluids with D5 half-normal saline * Lorazepam 1-2 mg IV every 4 hours as needed * Today we are switching to Dantrolene PO. Will continue that till his symptoms improved * Check his blood work regularly, follow LFTs as dantrolene can cause LFT abnormality * Proton pump inhibitor * Psychiatry consult was placed to guide management for delerium if happend: who recommended Depakot IV 250 mg TID till improvement of his mental status then we can switch to Trazodone 25 mg BID-TID Alimentary: * Will continue PPI Neurological: * Neurology to follow-up * Head CT today with no acute abnormalities DVT/Prophylaxis: mechanical, pharmacological Code Status: Do Not Resucitate/Intubat
--- NOTE | 2017-08-07 10:37 | PN- CRCU ---
Subjective HPI/Critical Care Issues: Patient seen and examined, he is more arousable today, answering questions. Tmax overnight 101.8, other vitals stable except for slight elevated BP. Answers most of the questions appropriately No other complaints no pain no headaches Did receive dantrolene yesterday intravenously Able to take by mouth Review of symptoms otherwise unremarkable No significant behavioral changes Laboratory Tests 08/07 05 0317 0600 Chemistry Sodium (137 - 145 mmol/L) 137 Cancelled Potassium (3.5 - 5.1 mmol/L) 4.3 Cancelled Chloride (98 - 107 mmol/L) 104 Cancelled Carbon Dioxide (22 - 30 mmol/L) 23 Cancelled Anion Gap (5 - 16) 9 Cancelled BUN (9 - 20 mg/dL) 16 Cancelled Creatinine (0.7 - 1.2 mg/dL) 0.9 Cancelled Estimated GFR (>60 ml/min) > 60 BUN/Creatinine Ratio Cancelled Glucose (65 - 99 mg/dL) 103 H Calcium (8.4 - 10.2 mg/dL) 8.6 Phosphorus (2.5 - 4.5 mg/dL) 2.3 L Magnesium (1.6 - 2.3 mg/dL) 1.7 Total Bilirubin (0.2 - 1.3 mg/dL) 0.8 Direct Bilirubin (< 0.4 mg/dL) 0.5 H AST (17 - 59 U/L) 53 ALT (21 - 72 U/L) 40 Alkaline Phosphatase (< 127 U/L) 59 Creatine Kinase (55 - 170 U/L) 402 H Total Protein (6.3 - 8.2 g/dL) 5.5 L Albumin (3.5 - 5.0 g/dL) 3.0 L Coagulation APTT (25 - 37 SEC) 29 Hematology CBC w Diff NO MAN DIFF REQ Cancelled WBC (4.8 - 10.8 /CUMM) 6.6 Cancelled RBC (4.70 - 6.10 /CUMM) 3.59 L Cancelled Hgb (14.0 - 18.0 G/DL) 11.2 L Cancelled Hct (42 - 52 %) 33.7 L Cancelled MCV (80.0 - 94.0 FL) 93.8 Cancelled MCH (27.0 - 31.0 PG) 31.2 H Cancelled MCHC (33.0 - 37.0 G/DL) 33.2 Cancelled RDW (11.5 - 14.5 %) 13.4 Cancelled Plt Count (130 - 400 /CUMM) 241 Cancelled MPV (7.4 - 10.4 FL) 7.1 L Cancelled Gran % (42.2 - 75.2 %) 75.2 Lymphocytes % (20.5 - 51.1 %) 9.1 L Monocytes % (1.7 - 9.3 %) 10.5 H Eosinophils % (0 - 5 %) 4.9 Basophils % (0.0 - 2.0 %) 0.3 Absolute Granulocytes (1.4 - 6.5 /CUMM) 5.0 Absolute Lymphocytes (1.2 - 3.4 /CUMM) 0.6 L Absolute Monocytes (0.10 - 0.60 /CUMM) 0.7 H Absolute Eosinophils (0.0 - 0.7 /CUMM) 0.3 Absolute Basophils (0.0 - 0.2 /CUMM) 0 08/06 08/05 0316 1930 Chemistry Sodium (137 - 145 mmol/L) 143 144 Potassium (3.5 - 5.1 mmol/L) 4.1 4.1 Chloride (98 - 107 mmol/L) 111 H 111 H Carbon Dioxide (22 - 30 mmol/L) 23 21 L Anion Gap (5 - 16) 9 11 BUN (9 - 20 mg/dL) 22 H 22 H Creatinine (0.7 - 1.2 mg/dL) 1.1 1.2 Estimated GFR (>60 ml/min) > 60 59 L BUN/Creatinine Ratio (7 - 25 %) 18.3 Glucose (65 - 99 mg/dL) 108 H Lactic Acid (0.7 - 2.1 mmol/L) 0.6 L Calcium (8.4 - 10.2 mg/dL) 8.7 Phosphorus (2.5 - 4.5 mg/dL) 3.2 2.4 L Magnesium (1.6 - 2.3 mg/dL) 1.9 1.6 Total Bilirubin (0.2 - 1.3 mg/dL) 0.7 0.7 Direct Bilirubin (< 0.4 mg/dL) 0.3 AST (17 - 59 U/L) 52 50 ALT (21 - 72 U/L) 35 36 Alkaline Phosphatase (< 127 U/L) 51 Creatine Kinase (55 - 170 U/L) 780 H 926 H Troponin I (<0.11 ng/ml) 0.02 < 0.01 Total Protein (6.3 - 8.2 g/dL) 5.7 L Albumin (3.5 - 5.0 g/dL) 2.9 L 3.1 L TSH (0.270 - 4.200 uIU/mL) 1.430 Free T4 (0.78 - 2.44 ng/dL) 1.55 Thyroxine (T4) (4.5 - 10.9 ug/dL) 6.6 Coagulation PT (9.4 - 12.5 SEC) 15.0 H INR (0.90 - 1.17) 1.37 H Hematology CBC w Diff MAN DIFF ORDERED NO MAN DIFF REQ WBC (4.8 - 10.8 /CUMM) 6.0 6.0 RBC (4.70 - 6.10 /CUMM) 3.37 L 3.39 L Hgb (14.0 - 18.0 G/DL) 10.5 L 10.7 L Hct (42 - 52 %) 31.6 L 31.7 L MCV (80.0 - 94.0 FL) 93.6 93.5 MCH (27.0 - 31.0 PG) 31.3 H 31.5 H MCHC (33.0 - 37.0 G/DL) 33.4 33.7 RDW (11.5 - 14.5 %) 13.1 12.8 Plt Count (130 - 400 /CUMM) 256 285 MPV (7.4 - 10.4 FL) 6.7 L 6.9 L Gran % (42.2 - 75.2 %) 84.0 H 82.7 H Lymphocytes % (20.5 - 51.1 %) 6.1 L 7.2 L Monocytes % (1.7 - 9.3 %) 7.9 7.8 Eosinophils % (0 - 5 %) 1.9 2.2 Basophils % (0.0 - 2.0 %) 0.1 0.1 Absolute Granulocytes (1.4 - 6.5 /CUMM) 5.0 5.0 Segmented Neutrophils (42.2 - 75.2 %) 77 H Absolute Lymphocytes (1.2 - 3.4 /CUMM) 0.4 L 0.4 L Lymphocytes (20.5 - 51.1 %) 10 L Monocytes (1.7 - 9.3 %) 5 Absolute Monocytes (0.10 - 0.60 /CUMM) 0.5 0.5 Eosinophils (0 - 5.0 %) 6 H Absolute Eosinophils (0.0 - 0.7 /CUMM) 0.1 0.1 Basophils (0.0 - 2.0 %) 2 Absolute Basophils (0.0 - 0.2 /CUMM) 0 0 Platelet Estimate (ADEQUATE) ADEQUATE Polychromasia 1+ Ovalocytes FEW Robin Cells RARE Other Body Source Fld Total RBCs Counted (%) 100 08/05 1929 Coagulation APTT Cancelled Microbiology Date/Time Procedure - Status Source Growth 08/06 043 Urine Culture - RES URINE ROUT 08/05 2150 Blood Culture - CAN BLOOD Cancelled: Cancelled via OE: Per MD Decision 08/05 2150 Blood Culture - CAN BLOOD Cancelled: Cancelled via OE: Per MD Decision 08/05 1949 Surveillance Culture - COMP UPPER RESP 08/05 1949 Surveillance Culture - COMP GI 08/05 1934 Blood Culture - RES BLOOD 08/05 1929 Blood Culture - RES BLOOD Objective Current Medications: Current Medications Sig/Shaista Start time Last Medication Dose Route Stop Time Status Admin Acetaminophen 1,000 MG Q6P PRN 08/06 1545 AC 08/07 N/A 1 UNIT IV 0621 Aspirin Buffered 81 MG DAILY 08/03 09 AC 08/07 PO 0917 Atorvastatin Calcium 20 MG 1700 08/03 1700 AC 08/05 PO 1625 Benztropine Mesylate 1 MG ONCE PRN 08/05 1600 AC 08/05 IV 1622 Bisacodyl 10 MG .STK-MED ONE 08/06 1849 DC AL 08/06 1850 Citalopram 20 MG DAILY 08/03 09 DC 08/05 Hydrobromide PO 0745 Dantrolene Sodium 100 MG Q6H 08/07 1300 AC PO Dantrolene Sodium 80 MG Q6H 08/06 1900 DC 08/07 N/A 1 UNIT IV 08/07 0728 0658 Dantrolene Sodium 180 MG ONCE ONE 08/06 1145 DC 08/06 N/A 1 UNIT IV 08/06 1249 1213 Dextrose/Sodium 1,000 ML Q8H 08/05 1930 AC 08/07 Chloride IV 0915 Fenofibrate 48 MG DAILY 08/03 899 AC 08/07 PO 16 Heparin Sodium 5,000 UNIT Q8 08/03 599 AC 08/07 (Porcine) SC 0542 Hydralazine HCl 5 MG ONCE ONE 08/07 0130 DC 08/07 IV 08/07 0131 0140 Lactobacillus 1 CAP BID 08/04 2099 AC 08/07 Acidophilus PO 915 Levothyroxine Sodium 0.025 MG DAILY AC 08/03 699 AC 08/07 PO 915 Lorazepam 1 MG Q4P PRN 08/05 2030 DC 08/06 IV 0621 Melatonin 3 MG QPM 08/03 2099 AC 08/04 PO 2017 Metoprolol Tartrate 50 MG DAILY 08/03 899 AC 08/07 PO 17 Non-Formulary 0 SEE ADMIN CRITERIA 08/06 1000 DC Medication ANY Non-Formulary 0 SEE ADMIN CRITERIA 08/06 1000 DC Medication ANY Omeprazole 20 MG DAILY AC 08/03 699 AC 08/07 PO 915 Senna/Docusate Sodium 1 TAB BID PRN 08/06 0745 AC 08/07 PO 915 Tamsulosin HCl 0.4 MG DAILY 08/03 899 AC 08/07 PO 0917 Valproate Sodium 250 MG TID 08/07 010 AC 08/07 Sodium Chloride 50 ML IV 0135 Vital Signs & I&O Last 24 Hrs of Vitals and I&O: Vital Signs Date Time Temp Pulse Resp B/P B/P Pulse O2 O2 Flow FiO2 Mean Ox Delivery Rate 08/07 916 84 146/70 08/07 0917 146/70 08/07 0702 100.5 08/07 0621 100.4 08/07 0400 84 150/80 08/07 0400 97 Nasal 3.0L Cannula 08/07 0148 99.8 08/07 0140 90 180/92 08/07 0010 101.8 08/07 0000 95 Nasal 3.0L Cannula 08/06 2300 101.3 76 33 160/90 95 Nasal 3.0L Cannula 08/06 2000 95 Nasal 3.0L Cannula 08/06 1658 101.8 08/06 1600 101.8 78 28 154/70 95 Nasal 3.0L Cannula 08/06 1600 95 Nasal 3.0L Cannula 08/06 1544 101.5 08/06 1200 96 Nasal 3.0L Cannula 08/06 1200 98.6 71 20 126/70 97 Nasal 3.0L Cannula Intake & Output 08/07 1600 05/ 0800 05 0000 Intake Total 1349 1206 Output Total 750 600 Balance 599 606 Intake, IV 1349 1206 Intake, Oral 0 0 Number 0 0 Bowel Movements Output, Urine 750 600 Impression/Plan Impression/Plan Impression/Plan: Alert awake and oriented Neck was supple No rigidity noted No significant myoclonic jerks Chest decreased breath sounds on both sides Heart S1-S2 was heard mildly tachycardic Abdominal exam soft Extremity normal suprapubic catheter in place Reflexes were brisk but not significantly hyper No significant clonus noted IMPRESSION This is a gentleman with history of hypertension, hyperlipidemia, previous BPH, recent TURP and suprapubic catheter done on July 10, subsequently had a UTI for which he did receive Cipro. He was then subsequently admitted to this hospital with confusion and hallucinations which appeared to be most likely related to Cipro and infection-induced encephalopathy in a pt with prior memory dysfunction. Initial neurological exam by neuro md was reviewed and at that time he did not appear to have hyperreflexia clonus. Patient has been on Lexapro at home. Subsequently as he became more encephalopathic on the floor he was treated with Seroquel and subsequently Haldol as well. Subsequently develeoped significant elevated temperature 5/8 and had worsening mental status, significant dystonic reaction. Sub transfer to the ICU. When i saw him. His clinical symptoms and signs are highly suggestive of neuroleptic malignant syndrome Issues include * Neuroleptic malignant syndrome now significantly improved after initial treatment with benzos and then subsequently would dantrolene. CPKs coming down and use normalizing back to his baseline * No clinical active sepsis. Infectious disease on board * Resolved dystonic reaction probably from Haldol as well now appropriately treated with benzotropin and Benadryl, as was also controlled by lorazepam * Mild chronic kidney disease with previous BPH status post suprapubic catheter, with prob cystitis and prostatitis initially status post treatment * Hypertension, hypothyroidism, GERD, previous REM related disorder, memory loss mild prior to admission, and history sugg of mild anxiety and depression which is stable RECOMMENDATION Changed to by mouth dantrolene If stable this can be discontinued tomorrow Increase by mouth intake Reduce his IV fluids to 50 mL per hour and if he is taking adequate by mouth this can be discontinued later today DC lorazepam Can start valproic acid by mouth as he is taking by mouth. Psychiatry recommendation reviewed Check his blood work daily including LFTs to rule out any dantrolene-induced issues Check CPK tomorrow Keep his head of bed elevated Subcutaneous heparin Start by mouth Pepcid and DC proton pump inhibitor Watch off antibiotics per ID Have psych and neuro and id to follow Patient is critically ill total time spent 36 minutes, discussed with patient's sig other Pt has a living will and family wished him to be dnr and dni Patient can be subsequently transferred to the medical floor later today or tomorrow Out of bed to chair Code Status: Do Not Resucitate/Intubat
--- NOTE | 2017-08-07 11:44 | PN- Infect Dx ---
Subjective Subjective: T-max 101.8. He is more responsive but is unable to provide any history. Objective Last 24 Hrs of Vital Signs/I&O Vital Signs Date Time Temp Pulse Resp B/P B/P Pulse O2 O2 Flow FiO2 Mean Ox Delivery Rate 08/07 916 84 146/70 08/07 0917 146/70 08/07 0800 96 Nasal 3.0L Cannula 08/07 0800 100.6 88 24 160/90 96 Nasal 3.0L Cannula 08/07 0702 100.5 08/07 0621 100.4 08/07 0400 84 150/80 08/07 0400 97 Nasal 3.0L Cannula 08/07 0148 99.8 08/07 0140 90 180/92 08/07 0010 101.8 08/07 0000 95 Nasal 3.0L Cannula 08/06 2300 101.3 76 33 160/90 95 Nasal 3.0L Cannula 08/06 2000 95 Nasal 3.0L Cannula 08/06 1658 101.8 08/06 1600 101.8 78 28 154/70 95 Nasal 3.0L Cannula 08/06 1600 95 Nasal 3.0L Cannula 08/06 1544 101.5 08/06 1200 96 Nasal 3.0L Cannula 08/06 1200 98.6 71 20 126/70 97 Nasal 3.0L Cannula Intake & Output 08/07 1600 08/07 0800 05 0000 Intake Total 1349 1206 Output Total 750 600 Balance 599 606 Intake, IV 1349 1206 Intake, Oral 0 0 Number 0 0 Bowel Movements Output, Urine 750 600 Physical Exam Other Physical Findings: He is more responsive and able to follow commands but is minimally verbal Skin no rash Lungs are clear Heart regular rhythm with no murmur Abdomen is soft, nontender with positive bowel sounds; suprapubic tube in place with clear urine Back no CVA tenderness Extremities no cyanosis, clubbing or edema Neuro no dystonia or myoclonic jerks noted Results Last 24 Hours of Lab Results: Laboratory Tests 08/07 316 Chemistry Sodium (137 - 145 mmol/L) 137 Potassium (3.5 - 5.1 mmol/L) 4.3 Chloride (98 - 107 mmol/L) 104 Carbon Dioxide (22 - 30 mmol/L) 23 Anion Gap (5 - 16) 9 BUN (9 - 20 mg/dL) 16 Creatinine (0.7 - 1.2 mg/dL) 0.9 Estimated GFR (>60 ml/min) > 60 Glucose (65 - 99 mg/dL) 103 H Calcium (8.4 - 10.2 mg/dL) 8.6 Phosphorus (2.5 - 4.5 mg/dL) 2.3 L Magnesium (1.6 - 2.3 mg/dL) 1.7 Total Bilirubin (0.2 - 1.3 mg/dL) 0.8 Direct Bilirubin (< 0.4 mg/dL) 0.5 H AST (17 - 59 U/L) 53 ALT (21 - 72 U/L) 40 Alkaline Phosphatase (< 127 U/L) 59 Creatine Kinase (55 - 170 U/L) 402 H Total Protein (6.3 - 8.2 g/dL) 5.5 L Albumin (3.5 - 5.0 g/dL) 3.0 L Coagulation APTT (25 - 37 SEC) 29 Hematology CBC w Diff NO MAN DIFF REQ WBC (4.8 - 10.8 /CUMM) 6.6 RBC (4.70 - 6.10 /CUMM) 3.59 L Hgb (14.0 - 18.0 G/DL) 11.2 L Hct (42 - 52 %) 33.7 L MCV (80.0 - 94.0 FL) 93.8 MCH (27.0 - 31.0 PG) 31.2 H MCHC (33.0 - 37.0 G/DL) 33.2 RDW (11.5 - 14.5 %) 13.4 Plt Count (130 - 400 /CUMM) 241 MPV (7.4 - 10.4 FL) 7.1 L Gran % (42.2 - 75.2 %) 75.2 Lymphocytes % (20.5 - 51.1 %) 9.1 L Monocytes % (1.7 - 9.3 %) 10.5 H Eosinophils % (0 - 5 %) 4.9 Basophils % (0.0 - 2.0 %) 0.3 Absolute Granulocytes (1.4 - 6.5 /CUMM) 5.0 Absolute Lymphocytes (1.2 - 3.4 /CUMM) 0.6 L Absolute Monocytes (0.10 - 0.60 /CUMM) 0.7 H Absolute Eosinophils (0.0 - 0.7 /CUMM) 0.3 Absolute Basophils (0.0 - 0.2 /CUMM) 0 Last 24 Hours of Luis Alberto Results: Urine culture August 06 negative Blood cultures 2 August 05 negative Recent Imaging Studies: Chest x-ray August 06 central vascular congestion with no focal pulmonary process Assessment/Plan ID Impression: Improvement overall, with increased responsiveness and decreasing temperatures, with no further evidence of dystonia and with CPK decreasing, on Dantrolene, begun yesterday for neuroleptic malignant syndrome secondary to Haldol. He is currently off antibiotics after 6 days of treatment for an Acinetobacter urinary tract infection in the setting of a recent TURP, with his white blood cell count remaining normal. Suggestion: 1. Further management of neuroleptic malignant syndrome per the ICU team 2. Urology follow-up regarding removal of the suprapubic tube and further evaluation of the left renal mass 3. Continue to follow off antibiotics
[2017-08-07 12:00] VITALS: BP 116/62
--- NOTE | 2017-08-07 14:04 | ELECTROENCEPHALOGRAM REPORT ---
Electroencephalogram Report Electroencephalogram Results Date of service: 08/07/17 Attending MD: Lamar VALERIO,Rajan Marshall Loan Manager: Gabrielle EEG Number: [id number] Test Utilizes: 10-20 system, 21 lead 18 channel digital recording Pertinent Hx/Physical/Neuro Findings/Clin Diagnosis: Tremors, myoclonus, fever, in the setting of Haldol administration. Inpatient Medications: Current Medications Sig/Shaista Start time Last Medication Dose Route Stop Time Status Admin Acetaminophen 1,000 MG Q6P PRN 08/06 1545 AC 05 N/A 1 UNIT IV 0621 Aspirin Buffered 81 MG DAILY 08/03 09 AC 08/07 PO 0917 Atorvastatin Calcium 20 MG 1700 08/03 1700 AC 08/05 PO 1625 Benztropine Mesylate 1 MG ONCE PRN 08/05 1600 AC 08/05 IV 1622 Bisacodyl 10 MG .STK-MED ONE 08/06 1849 DC AL 08/06 1850 Citalopram 20 MG DAILY 08/03 0900 DC 08/05 Hydrobromide PO 0745 Dantrolene Sodium 100 MG Q6H 08/07 1300 AC 08/07 PO 1328 Dantrolene Sodium 80 MG Q6H 08/06 1900 DC 08/07 N/A 1 UNIT IV 08/07 0728 0658 Dextrose/Sodium 1,000 ML Q20H 08/07 1100 AC Chloride IV Dextrose/Sodium 1,000 ML Q8H 08/05 1930 DC 05 Chloride IV 0915 Docusate Sodium 100 MG DAILY NEEDED PRN 08/07 1115 AC PO Famotidine 20 MG DAILY 08/08 0900 AC PO Famotidine 20 MG ONCE ONE 08/07 1115 CAN IV 08/07 1116 Fenofibrate 48 MG DAILY 08/03 09 AC 08/07 PO 0916 Heparin Sodium 5,000 UNIT Q8 08/03 0600 AC 08/07 (Porcine) SC 1328 Hydralazine HCl 5 MG ONCE ONE 08/07 0130 DC 05 IV 08/07 0131 0140 Lactobacillus 1 CAP BID 08/04 2100 AC 08/07 Acidophilus PO 0916 Levothyroxine Sodium 0.025 MG DAILY AC 08/03 0700 AC 08/07 PO 0916 Lorazepam 1 MG Q4P PRN 08/05 2030 DC 08/06 IV 0621 Melatonin 3 MG QPM 08/03 2100 AC 08/04 PO 2017 Metoprolol Tartrate 50 MG DAILY 08/03 899 AC 08/07 PO 916 Non-Formulary 0 SEE ADMIN CRITERIA 08/06 1000 DC Medication ANY Omeprazole 20 MG DAILY AC 08/03 699 DC 08/07 PO 915 Senna/Docusate Sodium 1 TAB BID PRN 08/05 0845 AC 08/07 PO 915 Tamsulosin HCl 0.4 MG DAILY 08/03 899 AC 08/07 PO 916 Valproate Sodium 250 MG TID 08/07 0100 DC 08/07 Sodium Chloride 50 ML IV 0135 Interpretation: The recording demonstrates a disruption of the expected frequency gradient. The background is composed of a mixed beta and alpha up front with a slower theta range posteriorly. There is good symmetry in frequency and amplitude. There are no paroxysmal sharps or spikes. The posterior dominant rhythm is indiscernible. Impression: Abnormal EEG due to slight slowing of background but without evidence for seizure activity.
[2017-08-07 16:00] VITALS: BP 114/80
[2017-08-07 23:00] VITALS: BP 158/96
[2017-08-08 05:00] LABS: ABSOLUTE BASOPHIL COUNT 0 /CUMM (0.0-0.2); ABSOLUTE EOSINOPHIL COUNT 0.5 /CUMM (0.0-0.7); ABSOLUTE GRANULOCYTE CT 2.8 /CUMM (1.4-6.5); ABSOLUTE LYMPH COUNT 1.6 /CUMM (1.2-3.4); ABSOLUTE MONOCYTE COUNT 0.8 /CUMM (0.10-0.60); BASOPHIL % 0.6 % (0.0-2.0); EOSINOPHIL % 8.3 % (0-5); GRANULOCYTE % 48.8 % (42.2-75.2); HEMATOCRIT 29.9 % (42-52); MEAN CORPUSCULAR HGB 30.6 PG (27.0-31.0); MEAN CORPUSCULAR HGB CONC 32.8 G/DL (33.0-37.0); MEAN CORPUSCULAR VOLUME 93.2 FL (80.0-94.0); MEAN PLATELET VOLUME 7.3 FL (7.4-10.4); PLATELET COUNT 221 /CUMM (130-400); RBC DISTRIBUTION WIDTH 13.2 % (11.5-14.5); RED BLOOD CELL CT 3.21 /CUMM (4.70-6.10); WHITE BLOOD CELL COUNT 5.7 /CUMM (4.8-10.8)
[2017-08-08 08:00] VITALS: BP 170/90
--- NOTE | 2017-08-08 09:51 | PN- Resident CRCU ---
Subjective HPI/CRCU Issues: Neuroleptic malignant syndrome 24 Hour Events: No events overnight He was seen and examined today, he is awake, alert and orinted x3, he complained of pain in the mouth from canker sore on right side. He report that stiffiness improved. He denies any pain, SOB, and no change in urinary or bowel habits. Objective Vital Signs & I&O Last 8 Hrs of Vitals and I&O: sTABLE Exam General Appearance: well developed/nourished, no apparent distress, alert, awake Respiratory: normal breath sounds, chest non-tender, no respiratory distress Cardiovascular: regular rate/rhythm, normal peripheral pulses Gastrointestinal: normal bowel sounds, soft, non-tender Extremities: normal inspection, normal capillary refill, normal range of motion Nutrition Nutrition: P.O. diet Current Medications: Current Medications Sig/Shaista Start time Last Medication Dose Route Stop Time Status Admin Acetaminophen 1,000 MG Q6P PRN 08/06 1545 AC 08/07 N/A 1 UNIT IV 0621 Aspirin Buffered 81 MG DAILY 08/03 0900 AC 08/08 PO 0831 Atorvastatin Calcium 20 MG 1700 08/03 1700 DC 08/07 PO 1737 Benzocaine 1 PRICILA BID 08/08 0935 AC 08/08 TOP 1119 Benztropine Mesylate 1 MG ONCE PRN 08/05 1600 DC 08/05 IV 1622 Dantrolene Sodium 100 MG Q6H 08/07 1300 AC 08/08 PO 08/08 2355 0559 Dextrose/Sodium 1,000 ML Q20H 08/07 1100 DC 08/08 Chloride IV 0026 Docusate Sodium 100 MG DAILY NEEDED PRN 08/07 1115 AC PO Famotidine 20 MG DAILY 08/08 0900 DC 08/08 PO 0831 Famotidine 20 MG ONCE ONE 08/07 1115 CAN IV 08/07 1116 Fenofibrate 48 MG DAILY 08/03 0900 DC 08/08 PO 0832 Heparin Sodium 5,000 UNIT Q8 08/03 06 AC 08/08 (Porcine) SC 0559 Lactobacillus 1 CAP BID 08/04 2100 AC 08/08 [place] PO 0832 Levothyroxine Sodium 0.025 MG DAILY AC 08/03 0700 AC 08/08 PO 0559 Lisinopril 20 MG DAILY 08/09 0900 AC PO Magnesium Sulfate 1 GM ONCE ONE 08/08 0915 AC 08/08 Dextrose/Water 100 ML IV 08/08 1314 1118 Melatonin 3 MG QPM 08/03 2100 AC 08/07 PO 2103 Metoprolol Tartrate 50 MG DAILY 08/03 0900 AC 08/08 PO 08 Potassium Chloride 40 MEQ ONCE ONE 08/08 0915 DC 08/08 PO 08/09 915 1119 Senna/Docusate Sodium 1 TAB BID PRN 08/05 0845 AC 08/07 PO 09 Tamsulosin HCl 0.4 MG DAILY 08/03 09 DC 08/08 PO 0831 Valproate Sodium 250 MG TID 08/07 0100 DC 08/07 Sodium Chloride 50 ML IV 0135 Impression/Plan Impression/Problem List Impression: 77 yo M with pmh of HTN, HLD, hypothyroidism, COPD, depression is here for worsening confusion that initially started after "few (?2-3)" days after his recent TURP procedure. He was initially at general medicine floor managed for catheter associated UTI, acute delirium, AKA. Yesterday, patient started to have abnormal jerky movements, in the setting of acute delirium and he has just received oral Haloperidol 1 mg today, about an hour ago. He had received 12.5 mg of Seroquel last night for the same. He was sent to ICU for concern of neuroleptic malignant syndrome. Respiratory: * He is saturating 96% on RA * Elevated the head of the bed to avoid aspiration Infectious Diseases: * He was treated for positive urine culture at July 29 for Acinetobacter with Bactrim for 5 days, now we are watching him off antibiotic * His most recent urine culture is still pending however he has negative urine culture at August 02, he doesn't have leukocytosis, meropenem discontinued. ID agreed with the above * Blood cultures x2 at 08/05/2017 is negative so far * Urology to follow up regarding suprapubic catheter (Please refer to the event note) Cardiovascular: * Closely monitor his blood pressure and heart rate as most of the patient who has NMS will have labile autonomic response, however he noted to have persistent elevated BP, will resume home dose of Lisinopril * Will hold statin for today, can resume prior to DC * With neuroleptic malignant syndrome, he will have autonomic dysfunction. watch his vitals closely especially BP. He was noted to have elevated BP overnight, we are not managing that to avoid hypotension. Hematology: * H&H dropps today 9.8/29.9 from 11.2/33.7 * Guaiac all stool * Will repeat CBC tomorrow Metabolic: NMS: * IV fluids with D5 half-normal saline * Lorazepam 1-2 mg IV every 4 hours as needed * Will continue Dantrolene for today, he continue to improve * Will check his blood work regularly, follow LFTs as dantrolene can cause LFT abnormality * Psychiatry consult was placed to guide management for delerium if happend: who recommended Depakot IV 250 mg TID till improvement of his mental status then we can switch to Trazodone 25 mg BID-TID * He has left renal mass which is going to be evaluated by urologist today Alimentary: * Aphthous ulcer, Orajel ordered Neurological: * EEG abnormal but no seizure activity * Head CT with no acute abnormalities DVT/Prophylaxis: mechanical, pharmacological Code Status: Do Not Resucitate/Intubat Problem List: 1. Neuroleptic malignant syndrome 2. S/P transurethral resection of prostate Pain Ratin Pain Location: mouth Tomorrow's Labs & Rationales: CBC, BEP, CPK Plan DVT/Prophylaxis: mechanical, pharmacological Code Status: Do Not Resucitate/Intubat
--- NOTE | 2017-08-08 10:03 | PN- CRCU ---
Subjective HPI/Critical Care Issues: No events overnight He was seen and examined today, he is awake, alert and orinted x3, he complained of pain in the mouth from canker sore on right side. He report that stiffiness improved. He denies any pain, SOB, and no change in urinary or bowel habits. Objective Current Medications: Current Medications Sig/Shaista Start time Last Medication Dose Route Stop Time Status Admin Acetaminophen 1,000 MG Q6P PRN 08/06 1545 AC 08/07 N/A 1 UNIT IV 0621 Aspirin Buffered 81 MG DAILY 08/03 09 AC 08/08 PO 0831 Atorvastatin Calcium 20 MG 1700 08/03 1700 AC 08/07 PO 1737 Benzocaine 1 PRICILA BID 08/08 0935 AC TOP Benztropine Mesylate 1 MG ONCE PRN 08/05 1600 AC 08/05 IV 1622 Dantrolene Sodium 100 MG Q6H 08/07 1300 AC 08/08 PO 0559 Dextrose/Sodium 1,000 ML Q20H 08/07 1100 AC 08/08 Chloride IV 0026 Dextrose/Sodium 1,000 ML Q8H 08/05 1930 DC 08/07 Chloride IV 0915 Docusate Sodium 100 MG DAILY NEEDED PRN 08/07 1115 AC PO Famotidine 20 MG DAILY 08/08 899 AC 08/08 PO 0831 Famotidine 20 MG ONCE ONE 08/07 1115 CAN IV 08/07 1116 Fenofibrate 48 MG DAILY 08/03 899 AC 08/08 PO 0832 Heparin Sodium 5,000 UNIT Q8 08/03 0600 AC 08/08 (Porcine) SC 0559 Lactobacillus 1 CAP BID 08/04 2100 AC 08/08 Acidophilus PO 0832 Levothyroxine Sodium 0.025 MG DAILY AC 08/03 0700 AC 08/08 PO 0559 Lisinopril 20 MG DAILY 08/09 0900 AC PO Magnesium Sulfate 1 GM ONCE ONE 08/08 914 AC Dextrose/Water 100 ML IV 08/08 1314 Melatonin 3 MG QPM 08/03 2100 AC 08/07 PO 2103 Metoprolol Tartrate 50 MG DAILY 08/03 899 AC 08/08 PO 0831 Omeprazole 20 MG DAILY AC 08/03 0700 DC 08/07 PO 0916 Potassium Chloride 40 MEQ ONCE ONE 08/08 914 DC PO 08/08 0916 Senna/Docusate Sodium 1 TAB BID PRN 08/05 0845 AC 08/07 PO 0916 Tamsulosin HCl 0.4 MG DAILY 08/03 0900 AC 08/08 PO 0831 Valproate Sodium 250 MG TID 08/07 0100 DC 08/07 Sodium Chloride 50 ML IV 0135 Vital Signs & I&O Last 24 Hrs of Vitals and I&O: Vital Signs Date Time Temp Pulse Resp B/P B/P Pulse O2 O2 Flow FiO2 Mean Ox Delivery Rate 08/08 830 73 170/90 08/08 0831 73 170/90 08/08 0800 98.6 70 26 170/90 96 Room Air Room Air 08/08 0400 94 Room Air 08/08 0000 90 Room Air 08/07 2300 98.3 88 26 158/96 99 Room Air 08/07 2000 94 Room Air 08/07 1600 94 Room Air 08/07 1600 99.2 68 20 114/80 93 Room Air 08/07 1200 93 Room Air 08/07 1200 98.4 70 20 116/62 93 Room Air Intake & Output 08/08 1600 08/08 0800 08/08 0000 Intake Total 520 520 Output Total 450 1000 Balance 70 -480 Intake, IV 400 400 Intake, Oral 120 120 Number 0 Bowel Movements Output, Urine 450 1000 Patient 202 lb Weight EEG reviewed Impression/Plan Impression/Plan Impression/Plan: Alert awake and oriented ulcer in the mouth consistant with apthous ulcer Neck was supple No rigidity noted No significant myoclonic jerks Chest decreased breath sounds on both sides Heart S1-S2 was heard mildly tachycardic Abdominal exam soft Extremity normal suprapubic catheter in place Reflexes were brisk but not significantly hyper No significant clonus noted IMPRESSION This is a gentleman with history of hypertension, hyperlipidemia, previous BPH, recent TURP and suprapubic catheter done on July 10, now with Issues include * Neuroleptic malignant syndrome now significantly improved after initial treatment with benzos and then subsequently would dantrolene. CPKs coming down and use normalizing back to his baseline * No clinical active sepsis. Infectious disease on board * Resolved dystonic reaction probably from Haldol as well now appropriately treated with benzotropin and Benadryl, as was also controlled by lorazepam * Mild chronic kidney disease with previous BPH status post suprapubic catheter, with prob cystitis and prostatitis initially status post treatment * Hypertension, hypothyroidism, GERD, previous REM related disorder, memory loss mild prior to admission, and history sugg of mild anxiety and depression which is stable * Apthous ulcer RECOMMENDATION Can cont dantrolene after today OK to the floor DC IVF and encourage po fluid Keep his head of bed elevated Subcutaneous heparin Dc pepcid, tamsulosin, fenfibrate, atrorvastatin for now (high cpk), for now and atorva can be started upon dc Orogel for apthous ulcer Watch off antibiotics per ID OK to the floor Code Status: Do Not Resucitate/Intubat Code Status: Do Not Resucitate/Intubat
--- NOTE | 2017-08-08 11:03 | Event Note ---
Event Note Event Note: Spoke with Dr. Paul (He is covering for Dr. Davalos) regarding suprapubic catheter as there was a concern that the patient has urine output from suprapubic catheter as well as urethra, he advise not to clamp the catheter for voiding trial as that is going to increase his risk of infection if there is any foreign body, that also can cause obstruction. For the left renal mass, Dr. Paul will look at the imaging and evaluate the patient later today.
--- NOTE | 2017-08-08 11:06 | PN- Infect Dx ---
Subjective Subjective: Afebrile without complaints. His mental status has improved with no further dystonia noted. Objective Last 24 Hrs of Vital Signs/I&O Vital Signs Date Time Temp Pulse Resp B/P B/P Pulse O2 O2 Flow FiO2 Mean Ox Delivery Rate 08/08 0831 73 170/90 08/08 0831 73 170/90 08/08 0800 96 Room Air Room Air 08/08 0800 98.6 70 26 170/90 96 Room Air Room Air 08/08 0400 94 Room Air 08/08 0000 90 Room Air 08/07 2300 98.3 88 26 158/96 99 Room Air 08/07 2000 94 Room Air 08/07 1600 94 Room Air 08/07 1600 99.2 68 20 114/80 93 Room Air 08/07 1200 93 Room Air 08/07 1200 98.4 70 20 116/62 93 Room Air Intake & Output 08/08 1600 08/08 0800 08/08 0000 Intake Total 520 520 Output Total 450 1000 Balance 70 -480 Intake, IV 400 400 Intake, Oral 120 120 Number 0 Bowel Movements Output, Urine 450 1000 Patient 202 lb Weight Physical Exam Other Physical Findings: He is awake, alert and oriented in no acute distress Lungs crackles at the left base Heart regular rhythm with no murmur Abdomen is soft, nontender with positive bowel sounds; suprapubic tube in place, with clear urine Back no CVA tenderness Results Last 24 Hours of Lab Results: Laboratory Tests 08/08 0343 Chemistry Sodium (137 - 145 mmol/L) 139 Potassium (3.5 - 5.1 mmol/L) 3.8 Chloride (98 - 107 mmol/L) 105 Carbon Dioxide (22 - 30 mmol/L) 25 Anion Gap (5 - 16) 8 BUN (9 - 20 mg/dL) 14 Creatinine (0.7 - 1.2 mg/dL) 0.8 Estimated GFR (>60 ml/min) > 60 Glucose (65 - 99 mg/dL) 101 H Calcium (8.4 - 10.2 mg/dL) 8.4 Phosphorus (2.5 - 4.5 mg/dL) 3.1 Magnesium (1.6 - 2.3 mg/dL) 1.7 Total Bilirubin (0.2 - 1.3 mg/dL) 0.5 AST (17 - 59 U/L) 35 ALT (21 - 72 U/L) 38 Creatine Kinase (55 - 170 U/L) 109 Albumin (3.5 - 5.0 g/dL) 2.6 L Hematology CBC w Diff NO MAN DIFF REQ WBC (4.8 - 10.8 /CUMM) 5.7 RBC (4.70 - 6.10 /CUMM) 3.21 L Hgb (14.0 - 18.0 G/DL) 9.8 L Hct (42 - 52 %) 29.9 L MCV (80.0 - 94.0 FL) 93.2 MCH (27.0 - 31.0 PG) 30.6 MCHC (33.0 - 37.0 G/DL) 32.8 L RDW (11.5 - 14.5 %) 13.2 Plt Count (130 - 400 /CUMM) 221 MPV (7.4 - 10.4 FL) 7.3 L Gran % (42.2 - 75.2 %) 48.8 Lymphocytes % (20.5 - 51.1 %) 27.6 Monocytes % (1.7 - 9.3 %) 14.7 H Eosinophils % (0 - 5 %) 8.3 H Basophils % (0.0 - 2.0 %) 0.6 Absolute Granulocytes (1.4 - 6.5 /CUMM) 2.8 Absolute Lymphocytes (1.2 - 3.4 /CUMM) 1.6 Absolute Monocytes (0.10 - 0.60 /CUMM) 0.8 H Absolute Eosinophils (0.0 - 0.7 /CUMM) 0.5 Absolute Basophils (0.0 - 0.2 /CUMM) 0 Last 24 Hours of Luis Alberto Results: Urine culture August 06 negative Assessment/Plan ID Impression: Markedly improved, now awake and alert, with temperatures and white blood cell count remaining normal off antibiotics after 6 days of treatment for an Acinetobacter urinary tract infection following a TURP. He remains on Dantrolene for neuroleptic malignant syndrome secondary to Haldol. Suggestion: 1. Further management of neuroleptic malignant syndrome per the ICU team 2. Urology follow-up regarding clamping/removal of the suprapubic tube and evaluation of the left renal mass 3. Continue to follow off antibiotics Will no longer follow at this time but please call with any questions
--- NOTE | 2017-08-08 12:41 | PN- Urology ---
Subjective Subjective: Patient improved Suprapubic tube to gravity drainage. Also voiding some per urethra Objective Vital Signs and I&Os Laboratory Tests 08/08 0343 Chemistry Sodium (137 - 145 mmol/L) 139 Potassium (3.5 - 5.1 mmol/L) 3.8 Chloride (98 - 107 mmol/L) 105 Carbon Dioxide (22 - 30 mmol/L) 25 Anion Gap (5 - 16) 8 BUN (9 - 20 mg/dL) 14 Creatinine (0.7 - 1.2 mg/dL) 0.8 Estimated GFR (>60 ml/min) > 60 Glucose (65 - 99 mg/dL) 101 H Calcium (8.4 - 10.2 mg/dL) 8.4 Phosphorus (2.5 - 4.5 mg/dL) 3.1 Magnesium (1.6 - 2.3 mg/dL) 1.7 Total Bilirubin (0.2 - 1.3 mg/dL) 0.5 AST (17 - 59 U/L) 35 ALT (21 - 72 U/L) 38 Creatine Kinase (55 - 170 U/L) 109 Albumin (3.5 - 5.0 g/dL) 2.6 L Hematology CBC w Diff NO MAN DIFF REQ WBC (4.8 - 10.8 /CUMM) 5.7 RBC (4.70 - 6.10 /CUMM) 3.21 L Hgb (14.0 - 18.0 G/DL) 9.8 L Hct (42 - 52 %) 29.9 L MCV (80.0 - 94.0 FL) 93.2 MCH (27.0 - 31.0 PG) 30.6 MCHC (33.0 - 37.0 G/DL) 32.8 L RDW (11.5 - 14.5 %) 13.2 Plt Count (130 - 400 /CUMM) 221 MPV (7.4 - 10.4 FL) 7.3 L Gran % (42.2 - 75.2 %) 48.8 Lymphocytes % (20.5 - 51.1 %) 27.6 Monocytes % (1.7 - 9.3 %) 14.7 H Eosinophils % (0 - 5 %) 8.3 H Basophils % (0.0 - 2.0 %) 0.6 Absolute Granulocytes (1.4 - 6.5 /CUMM) 2.8 Absolute Lymphocytes (1.2 - 3.4 /CUMM) 1.6 Absolute Monocytes (0.10 - 0.60 /CUMM) 0.8 H Absolute Eosinophils (0.0 - 0.7 /CUMM) 0.5 Absolute Basophils (0.0 - 0.2 /CUMM) 0 Vital Signs Date Time Temp Pulse Resp B/P B/P Pulse O2 O2 Flow FiO2 Mean Ox Delivery Rate 08/08 1229 Room Air Room Air 08/08 1221 Room Air Room Air 08/08 0831 73 170/90 08/08 0831 73 170/90 08/08 0800 96 Room Air Room Air 08/08 0800 98.6 70 26 170/90 96 Room Air Room Air 08/08 0400 94 Room Air 08/08 0000 90 Room Air 08/07 2300 98.3 88 26 158/96 99 Room Air 08/07 2000 94 Room Air 08/07 1600 94 Room Air 08/07 1600 99.2 68 20 114/80 93 Room Air Intake & Output 08/08 1600 08/08 0800 08/08 0000 08/07 1600 08/07 0800 08/07 0000 Intake Total 048 424 3454 1349 1206 Output Total 450 1000 650 750 600 Balance 70 -480 690 599 606 Intake, IV 400 720 430 5596 1206 Intake, Oral 120 120 400 0 0 Number 0 1 0 0 Bowel Movements Output, Urine 450 1000 650 750 600 Patient 202 lb Weight Suprapubic tube in place and draining CT scan images reviewed. 2.3 cm exophytic mass in lower pole of L kidney. Hyperdense cyst vs solid renal mass. Suprapubic tube in good location in bladder Assessment/Plan Assessment/Plan Imp: 1. S/p TURP and insertion of suprapubic tube in 06/2017. Post op UTI and then medication reaction 2. Incidentally found 2.3 cm L renal mass, not completely characterize of recent CT scan Plan: 1. Would leave suprapubic tube to gravity drainage at this point. May consider clamping trial next week 2. Renal masses less than 3 cm are usually followed conservatively. He will need either renal ultrasoun or dedicated CT scan, renal mass protocol, in 6 months which we can arrange thru our office
--- NOTE | 2017-08-08 13:51 | Transfer of Care Summary ---
Hospital Course Course Hospital Course: 77 yo M with pmh of HTN, HLD, hypothyroidism, COPD, depression is here for worsening confusion that initially started after "few (?2-3)" days after his recent TURP procedure. He was initially at general medicine floor managed for catheter associated UTI, acute delirium, MADDISON. On 08/05/2017 patient started to have abnormal jerky movements, in the setting of acute delirium and he was received oral Haloperidol 1 mg and 2 doses of Seroquel. He was sent to ICU for concern of neuroleptic malignant syndrome. At ICU: We managed NMS with IV dantrolene which switched to PO throught NGT, hyperthemia was managed with IV Tylenol and cool blanket, he was initially consistently hyperthermic but that resolved within 2 days of his ICU stay, with improvement of his mentation and rigidity, we started oral diet today. Neurologist saw the patient who agreed with ICU management with Dantrolene, EEG was done which is abnormal but with no seizure activity. Daily ICU lab bundle, cbc and LFT was obtained as Dantrolene affect liver function. For his UTI he was treated for positive urine culture at July 29 for Acinetobacter with Bactrim for 5 days, now we are watching him off antibiotic as his 2 cultures during this hospitalization is negative so, far. ID initially was following the patient who recommend watching him off antibiotic and ask urologist to f/u regarding suprapubic catheter and left renal mass. (Please refer to the event note today) Plan: Respiratory: * He is saturating 96% on RA * Elevate the head of the bed to avoid aspiration Infectious Diseases: * He was treated for positive urine culture at July 29 for Acinetobacter with Bactrim for 5 days, now we are watching him off antibiotic * His most recent urine culture is still pending however he has negative urine culture at August 02, he doesn't have leukocytosis, meropenem discontinued. ID agreed with the above * Blood cultures x2 at 08/05/2017 is negative so far * Urology to follow up regarding suprapubic catheter (Please refer to the event note) Cardiovascular: * Closely monitor his blood pressure and heart rate as most of the patient who has NMS will have labile autonomic response, however he noted to have persistent elevated BP, will resume home dose of Lisinopril * Will hold statin for today, can resume prior to DC * With neuroleptic malignant syndrome, he will have autonomic dysfunction. watch his vitals closely especially BP. He was noted to have elevated BP overnight, we are not managing that to avoid hypotension. Hematology: * H&H dropps today 9.8/29.9 from 11.2/33.7 * Guaiac all stool * Will repeat CBC tomorrow Metabolic: NMS: * IV fluids with D5 half-normal saline * Lorazepam 1-2 mg IV every 4 hours as needed * Will continue Dantrolene for today, he continue to improve * Will check his blood work regularly, follow LFTs as dantrolene can cause LFT abnormality * Psychiatry consult was placed to guide management for delerium if happend: who recommended Depakot IV 250 mg TID till improvement of his mental status then we can switch to Trazodone 25 mg BID-TID * He has left renal mass which is going to be evaluated by urologist today Alimentary: * Aphthous ulcer, Orajel ordered Neurological: * EEG abnormal but no seizure activity * Head CT with no acute abnormalities DVT/Prophylaxis: mechanical, pharmacological Code Status: Do Not Resucitate/Intubat Complications: Non Assessment/Plan: As above
[2017-08-08 16:00] VITALS: BP 110/60
--- NOTE | 2017-08-08 16:23 | RADIOLOGY REPORT ---
EXAMINATION: XR PORTABLE CHEST CLINICAL INFORMATION: 77 year old male with aspiration pneumonia. For follow up. COMPARISON: Chest radiograph done on 08/06/2017. TECHNIQUE: Portable frontal view of the chest was obtained. FINDINGS: The right lung base is not completely included within the [id number] and accordingly not evaluated. The remainder of the lung reyes appear clear. There is improved aeration noted since the prior study. The cardiomediastinal silhouette remains mildly enlarged. The visualized upper abdomen is unremarkable. IMPRESSION: Improved aeration since the prior study. The right lung base is not completely included within the [id number] and accordingly not evaluated. No new abnormalities.
[2017-08-08 21:49] VITALS: BP 130/80
[2017-08-09 06:01] VITALS: BP 136/84
[2017-08-09 09:00] LABS: ABSOLUTE BASOPHIL COUNT 0 /CUMM (0.0-0.2); ABSOLUTE EOSINOPHIL COUNT 0.4 /CUMM (0.0-0.7); ABSOLUTE GRANULOCYTE CT 2.4 /CUMM (1.4-6.5); ABSOLUTE MONOCYTE COUNT 0.6 /CUMM (0.10-0.60); BASOPHIL % 0.7 % (0.0-2.0); EOSINOPHIL % 7.1 % (0-5); GRANULOCYTE % 44.1 % (42.2-75.2); HEMATOCRIT 31.7 % (42-52); MEAN CORPUSCULAR VOLUME 93.9 FL (80.0-94.0); MEAN PLATELET VOLUME 7.5 FL (7.4-10.4); PLATELET COUNT 233 /CUMM (130-400); RBC DISTRIBUTION WIDTH 13.5 % (11.5-14.5); RED BLOOD CELL CT 3.38 /CUMM (4.70-6.10); WHITE BLOOD CELL COUNT 5.5 /CUMM (4.8-10.8)
--- NOTE | 2017-08-09 12:35 | PN- Att Addend ---
Attending Addendum Attending Brief Note Patient seen and examined, overall doing much better. Temperatures are back to normal. Patient did work with physical therapy today and did much better. They recommended home once goals met. Vital Signs Date Time Temp Pulse Resp B/P B/P Pulse O2 O2 Flow FiO2 Mean Ox Delivery Rate 08/09 0845 97.9 68 20 136/84 08/09 0844 97.9 68 20 136/84 08/09 0601 97.9 58 20 136/84 95 Room Air 08/08 2149 97.9 67 20 130/80 94 08/08 1600 94 Room Air Room Air 08/08 1600 98.1 64 18 110/60 94 Room Air Room Air 08/08 1438 78 140/70 on exam; aox3, nad. cv; s1,s2, rrr resp; clear abd; soft, nt, bs+, + suprapubic cath ext; no edema Laboratory Tests 08/09 0620 Chemistry Sodium (137 - 145 mmol/L) 140 Potassium (3.5 - 5.1 mmol/L) 4.2 Chloride (98 - 107 mmol/L) 107 Carbon Dioxide (22 - 30 mmol/L) 25 Anion Gap (5 - 16) 8 BUN (9 - 20 mg/dL) 16 Creatinine (0.7 - 1.2 mg/dL) 0.9 Estimated GFR (>60 ml/min) > 60 BUN/Creatinine Ratio (7 - 25 %) 17.8 Hematology CBC w Diff NO MAN DIFF REQ WBC (4.8 - 10.8 /CUMM) 5.5 RBC (4.70 - 6.10 /CUMM) 3.38 L Hgb (14.0 - 18.0 G/DL) 10.5 L Hct (42 - 52 %) 31.7 L MCV (80.0 - 94.0 FL) 93.9 MCH (27.0 - 31.0 PG) 31.0 MCHC (33.0 - 37.0 G/DL) 33.0 RDW (11.5 - 14.5 %) 13.5 Plt Count (130 - 400 /CUMM) 233 MPV (7.4 - 10.4 FL) 7.5 Gran % (42.2 - 75.2 %) 44.1 Lymphocytes % (20.5 - 51.1 %) 37.4 Monocytes % (1.7 - 9.3 %) 10.7 H Eosinophils % (0 - 5 %) 7.1 H Basophils % (0.0 - 2.0 %) 0.7 Absolute Granulocytes (1.4 - 6.5 /CUMM) 2.4 Absolute Lymphocytes (1.2 - 3.4 /CUMM) 2.0 Absolute Monocytes (0.10 - 0.60 /CUMM) 0.6 Absolute Eosinophils (0.0 - 0.7 /CUMM) 0.4 Absolute Basophils (0.0 - 0.2 /CUMM) 0 A/P; 77 y/o M with pmh sig for HTN, HLD, hypothyroidism, COPD, depression initially admitted with acute confusion and treated for catheter associated UTI , acute delirium, MADDISON. Patient then developed abnormal jerking movements and received Haldol and developed neurolept malignant syndrome and transferred to ICU. Over there he received dantrolene. After stabilization he has been moved back to medicine floor. Currently much more stable. Still has the suprapubic catheter. Also found to have renal mass and a urology recommends periodic follow-up imaging. Working with physical therapy and doing better. Plan is to continue the current management and keep working with physical therapy with another session tomorrow. If continues to improve then likely discharge home tomorrow with home services. Urologist will follow for possible catheter change and voiding trial in the next couple of weeks. He will also follow-up with urology for this renal mass for periodic follow-up.
[2017-08-09 14:04] VITALS: BP 100/58
[2017-08-09 22:06] VITALS: BP 150/80
[2017-08-10 06:36] VITALS: BP 118/60
--- NOTE | 2017-08-10 09:13 | PN- Urology ---
Subjective Subjective: No distress Objective Vital Signs and I&Os Vital Signs Date Time Temp Pulse Resp B/P B/P Pulse O2 O2 Flow FiO2 Mean Ox Delivery Rate 08/11 635 98.7 77 20 118/60 94 Room Air 08/09 2206 97.9 76 20 150/80 96 08/09 1404 97.7 67 20 100/58 96 Room Air Intake & Output 08/10 1600 08/10 0800 08/10 0000 08/09 1600 08/09 0800 08/09 0000 Intake Total 460 360 800 240 360 Output Total 1250 900 500 550 Balance -790 -540 300 -310 360 Intake, Oral 460 360 800 240 360 Output, Urine 1250 900 500 550 Abd: soft and non tender. Suprapubic tube in place and draining clear urine Laboratory Tests 08/11 639 Hematology CBC w Diff Pending WBC Pending RBC Pending Hgb Pending Hct Pending MCV Pending MCH Pending MCHC Pending RDW Pending Plt Count Pending MPV Pending Assessment/Plan Assessment/Plan Imp: 1. s/p TURP and insertion of suprapubic tube in 06/2017 2. Urgency urinary incontinence due to over active bladder Plan: 1. Suprapubic tube changed at bedside today 2. OK from urologic point of view for discharge. He should keep suprapubic tube open to gravity drainage at this point. Once he is settled at home he may plug suprapubic tube
--- NOTE | 2017-08-10 09:27 | PN- Housestaff ---
[facility] Subjective Follow-up For: Acute delirium due to Catheter related UTI MADDISON(RESOLVED) Suprapubic catheter s/p TURP Subjective: No over night events. Patient remained afebrile overnight. Seen and examined this morning. She denied any chest pain, palpitations, nausea, vomiting, chills , fever abdominal pain dysuria. His suprapubic catheter was changed on bedside by urology today. Patient is feeling much improved. His ambulating without any complaint and he wants to go home today. Review of Systems Constitutional: Denies: chills, fever. EENTM: Reports: no symptoms. Cardiovascular: Denies: chest pain, palpitations. Respiratory: Denies: cough, short of breath, sputum production. Gastrointestinal: Denies: abdominal pain, constipation, diarrhea, nausea, vomiting. Genitourinary: Reports: hematuria. Musculoskeletal: Reports: no symptoms. Neurological/Psychological: Reports: no symptoms. Objective Last 24 Hrs of Vital Signs/I&O Vital Signs Date Time Temp Pulse Resp B/P B/P Pulse O2 O2 Flow FiO2 Mean Ox Delivery Rate 08/10 1001 98.7 77 20 118/60 08/10 1000 98.7 77 20 118/60 08/10 0636 98.7 77 20 118/60 94 Room Air 08/09 2206 97.9 76 20 150/80 96 08/09 1404 97.7 67 20 100/58 96 Room Air Intake & Output 08/10 1600 08/10 0800 08/10 0000 Intake Total 460 360 Output Total 1250 900 Balance -790 -540 Intake, Oral 460 360 Output, Urine 1250 900 Physical Exam General Appearance: Alert, Oriented X3, Cooperative Skin: No Rashes Skin Temp/Moisture Exam: Warm/Dry Sepsis Skin Exam (color): Normal for Ethnicity HEENT: Atraumatic, PERRLA, EOMI Neck: Supple Cardiovascular: Normal S1, Normal S2 Lungs: Clear to Auscultation Abdomen: Soft, No Tenderness Neurological: Normal Speech, Strength at 5/5 X4 Ext, Normal Tone Extremities: No Edema Assessment/Plan Assessment: 77 YO M with PMH of HTN, HLD, hypothyroidism, COPD, depression initially admitted with acute confusion and treated for catheter associated UTI, acute delirium, MADDISON. Patient then developed abnormal jerking movements and received Haldol and developed neurolept malignant syndrome and transferred to ICU. Over there he received dantrolene. After stabilization he has been moved back to medicine floor. Seeing the patient on general medicine floor for further problems: Acute delirium due to catheter related UTI:(resolved) -Patient developed delirium after a recent TURP for BPH and suprapubic catheter placement. -His delirium has been resolved -His urine cultures remained negative. -He received 6 days of antibiotic treatment for Acinetobacter urinary tract infection following a TURP. -Possible discharge today. -Urology will follow the patient as outpatient. Neuroleptic malignant syndrome.(RESOLVED) treated with dantrolene, benztropine. -His NMS has been resolved and he was transferred to general med floor. H/O of hypertension and hyperlipidemia: -CONTINUE Metoprolol and lisinopril -Not on any anti-hyperlipidemic medications History of hypothyroidism: -CONTINUE levothyroxin Code Status: DNR/intubated DVT prophylaxis: Mechanical subcutaneous heparin Problem List: 1. Neuroleptic malignant syndrome 2. Acute delirium Pain Ratin Pain Location: none Pain Goal: Remain pain free Pain Plan: pain pathway Tomorrow's Labs & Rationales: none [facility]: Attending MD Review Statement Attending Statement Attending MD Statement: examined this patient, discuss w/resident/PA/APPLICATION CONSULTANT, agreed w/resident/PA/APPLICATION CONSULTANT, discussed with family, reviewed EMR data (avail), discussed with nursing, discussed with case mgmt, reviewed images, amended to note Attending Assessment/Plan: Patient seen and examined, overall doing much better. He was seen by urology this morning and suprapubic catheter tube was changed. The urine is slightly orangeish in color. Otherwise patient has no complaints. He was seen by physical therapy yesterday and performed well. He can walk with nursing and if he does well then he can be discharged home. I also spoke with case management. The patient was able to do stairs with them as well as walked 200 feet. Patient otherwise medically stable for discharge home if he ambulates well with nursing. Discuss with significant other at bedside.
[2017-08-10 10:01] VITALS: BP 118/60
[2017-08-10 10:28] LABS: ABSOLUTE BASOPHIL COUNT 0 /CUMM (0.0-0.2); ABSOLUTE EOSINOPHIL COUNT 0.2 /CUMM (0.0-0.7); ABSOLUTE GRANULOCYTE CT 3.4 /CUMM (1.4-6.5); ABSOLUTE LYMPH COUNT 2.1 /CUMM (1.2-3.4); ABSOLUTE MONOCYTE COUNT 0.6 /CUMM (0.10-0.60); BASOPHIL % 0.5 % (0.0-2.0); EOSINOPHIL % 3.5 % (0-5); GRANULOCYTE % 54.1 % (42.2-75.2); HEMATOCRIT 32.7 % (42-52); MEAN CORPUSCULAR HGB 31.2 PG (27.0-31.0); MEAN CORPUSCULAR HGB CONC 33.8 G/DL (33.0-37.0); MEAN CORPUSCULAR VOLUME 92.5 FL (80.0-94.0); MEAN PLATELET VOLUME 7.4 FL (7.4-10.4); PLATELET COUNT 265 /CUMM (130-400); RBC DISTRIBUTION WIDTH 13.4 % (11.5-14.5); RED BLOOD CELL CT 3.54 /CUMM (4.70-6.10); WHITE BLOOD CELL COUNT 6.4 /CUMM (4.8-10.8)
--- NOTE | 2017-08-10 11:22 | Patient Discharge Instructions ---
Discharge Instructions General Discharge Information You were seen/treated for: Acute delirium due to Catheter related UTI Neuroleptic malignant syndrome Watch for these problems: Altered mental status, chest pain, palpitation, pain while urination, blood in urine, severe headache, blurry vision and an unusual body movements. If you experience any of these symptoms please come to ED or call your primary care physician. Special Instructions: Follow-up with your primary care physician in one week Follow-up with your urologist in 1 week Diet Recommended Diet: Regular Activity Activity Self Limited: Yes Acute Coronary Syndrome Inclusion Criteria At DC or during hospital stay patient has or had the following: ACS DIAGNOSIS No Discharge Core Measures Meds if any: Prescribed or Continued at Discharge Meds if any: NOT Prescribed or Continued at Discharge Congestive Heart Failure Inclusion Criteria At DC or during hospital stay patient has or had the following: CHF DIAGNOSIS No Discharge Core Measures Meds if any: Prescribed or Continued at Discharge Meds if any: NOT Prescribed or Continued at Discharge Cerebrovascular accident Inclusion Criteria At DC or during hospital stay patient has or had the following: CVA/TIA Diagnosis No Discharge Core Measures Meds if any: Prescribed or Continued at Discharge Meds if any: NOT Prescribed or Continued at Discharge Venous thromboembolism Inclusion Criteria VTE Diagnosis No VTE Type NONE VTE Confirmed by (Test) NONE Discharge Core Measures - Per Current guidelines, there needs to be overlap - treatment for the first 5 days of Warfarin therapy. - If discharged on Warfarin prior to 5 days of - overlap therapy, the patient will need to be - assessed for post discharge needs including - *Post discharge parental anticoagulation - *Warfarin and/or parental anticoagulation education - *Follow up date to check INR post discharge At least 5 days overlap therapy as Inpatient No Meds if any: Prescribed or Continued at Discharge Note: Overlap Therapy is Warfarin and Anticoagulant Meds if any: NOT Prescribed or Continued at Discharge
[2017-08-10] MEDS ORDERED: PROBIOTIC & AC1 EACH PO (11:25)
== END 2017-08-10 14:13 | disposition home health service (06) | DRG 698 ==
LOC: ERH 21:43 → 2NA 08-03 01:07 → ERHI 08-03 01:07 → ENRESERV 08-03 02:58 → 2NA 08-03 03:22 → CRI 08-04 11:46 → 2NA 08-04 11:46 → CRI 08-05 19:36 → ENTRNSPT 08-08 18:05 → CMPTRNSPT 08-08 19:11 → 2NA 08-08 19:36 → ENPENDDIS 08-10 12:43 → ENTRNSPT 08-10 14:02 → 2NA 08-10 14:13 → EDTRNSPTTYP 08-10 14:13 → EDTRNSPT 08-10 14:13 → EDTRNSPTSTS 08-10 14:32 → EDTRNSPT 08-10 14:32 → CMPTRNSPT 08-10 17:12
PROVIDERS: Internal Medicine Endocrinology, Diabetes & Metabolism; Student in an Organized Health Care Education/Training Program
DX: T83.511A Infection and inflammatory reaction due to indwelling urethral catheter, initial encounter (principal); G21.0 Malignant neuroleptic syndrome; N17.9 Acute kidney failure, unspecified; F05 Delirium due to known physiological condition; B96.89 Other specified bacterial agents as the cause of diseases classified elsewhere; E86.0 Dehydration; J44.9 Chronic obstructive pulmonary disease, unspecified; F32.9 Major depressive disorder, single episode, unspecified; E03.9 Hypothyroidism, unspecified; T43.595A Adverse effect of other antipsychotics and neuroleptics, initial encounter; I12.9 Hypertensive chronic kidney disease with stage 1 through stage 4 chronic kidney disease, or unspecified chronic kidney disease; N18.2 Chronic kidney disease, stage 2 (mild); Z90.79 Acquired absence of other genital organ(s); K21.9 Gastro-esophageal reflux disease without esophagitis; N39.0 Urinary tract infection, site not specified; K12.0 Recurrent oral aphthae; N28.89 Other specified disorders of kidney and ureter; Z91.030 Bee allergy status; E78.5 Hyperlipidemia, unspecified; Z88.0 Allergy status to penicillin; Z66 Do not resuscitate; Z87.891 Personal history of nicotine dependence; R32 Unspecified urinary incontinence
CPT/HCPCS: 2NASP; CCU; 36415; 36592; 71045; 71046; 74176; 81001; 82436; 87040; 87086; 93005; 93010; 95816; 97110-GO; 97116-GO; 97161-GP; 97165-GO; 97530-GO; J0131; J0360; J0515; J1200; J1644; J2060; J2185; J7042